=== PATIENT | male | born 1960 | race Caucasian/White ===

== ENCOUNTER 2022-01-05 15:53 | Emergency (ER) | payer OTHER, SELFPAY ==
--- NOTE | ~2022-01-05 | XR_ITS ---
EXAMINATION: XR ANKLE, RIGHT CLINICAL INFORMATION: Hyperextension injury. COMPARISON: None TECHNIQUE: AP, lateral, and mortise views of the right ankle. FINDINGS: A definite acute fracture is not seen. The ankle mortise appears stable. There is marked soft tissue swelling both medially and laterally. XR/XR ankle RT 2V IMPRESSION: Marked soft tissue swelling without fracture
--- NOTE | ~2022-01-05 | XR_ITS ---
EXAMINATION: LEFT KNEE AND RIGHT TIB-FIB CLINICAL INFORMATION: Leg redness with question of osteomyelitis and knee pain COMPARISON: Right ankle radiographs TECHNIQUE: 2 views left knee, 2 views right tib-fib FINDINGS: Mild bicompartmental degenerative changes present in the left knee with narrowing in the medial compartment as well as the patellofemoral compartment. No joint effusion is seen. No chondrocalcinosis. No fractures. The visualized right tibia and fibula appear unremarkable. The remainder of the tibia and fibula were imaged with right ankle radiographs earlier today XR/XR tibia fibula RT 2V IMPRESSION: Bicompartmental degenerative changes left knee. Negative right tib-fib radiographs.
--- NOTE | ~2022-01-05 | XR_ITS ---
EXAMINATION: LEFT KNEE AND RIGHT TIB-FIB CLINICAL INFORMATION: Leg redness with question of osteomyelitis and knee pain COMPARISON: Right ankle radiographs TECHNIQUE: 2 views left knee, 2 views right tib-fib FINDINGS: Mild bicompartmental degenerative changes present in the left knee with narrowing in the medial compartment as well as the patellofemoral compartment. No joint effusion is seen. No chondrocalcinosis. No fractures. The visualized right tibia and fibula appear unremarkable. The remainder of the tibia and fibula were imaged with right ankle radiographs earlier today XR/XR knee LT 2V IMPRESSION: Bicompartmental degenerative changes left knee. Negative right tib-fib radiographs.
--- NOTE | ~2022-01-05 | US_ITS ---
EXAMINATION: US VENOUS ULTRASOUND WITH DOPPLER LOWER EXTREMITY, BILATERAL CLINICAL INFORMATION: Leg swelling. Question DVT COMPARISON: 01/14/2017 TECHNIQUE: Ultrasound of the deep veins is performed from the hip to the calf with compression sonography and color and pulse Doppler assessment. Spectral analysis with color-flow imaging is performed. FINDINGS: RIGHT: There is normal venous compression and respiratory variation and augmented flow. The visualized common femoral vein, superficial femoral vein, profunda femoral vein, popliteal vein, and the trifurcation region shows no evidence of deep venous thrombosis. There is no significant popliteal fossa cyst. Right peroneal vein is not well seen. LEFT: There is normal venous compression and respiratory variation and augmented flow. The visualized common femoral vein, superficial femoral vein, profunda femoral vein, popliteal vein, and the trifurcation region shows no evidence of deep venous thrombosis. There is no significant popliteal fossa cyst. If the patient's symptoms persist, followup ultrasound in 5 days 7 days might be of value to exclude proximal propagation from a non-visualized calf vein. US/US venous duplex LE BI IMPRESSION: No DVT demonstrated in the bilateral lower extremity.
[2022-01-05 15:58] VITALS: BP 186/90; PULSE 76; RESP 18; TEMP 37.1; O2SAT 98; BMI 44.3
--- NOTE | 2022-01-05 18:46 | ED.GENADULT ---
HPI - General Adult General Chief complaint: Extremity Problem Stated complaint: fall rt ankle and bilat knee pain Time Seen by Provider: 01/05/22 17:25 Source: patient Mode of arrival: ambulatory Limitations: no limitations History of Present Illness HPI narrative: 61 yold male presents to the ED for HTN, Varicose, Veins, PVD, VEnsou statsis, and CHF presents to the ED for right ankle pain after falling 3 weeks ago. patient denies hitting head or loss of consciousness. Patient denies any chest pain, shortness of breath, fever, chills, headache, rectal bleeding, abdominal pain, vomiting blood, Blood in urine , or janette other concerning symptoms. Related Data Allergies Allergy/AdvReac Type Severity Reaction Status Date / Time amlodipine [AMLODIPINE] Allergy Intermediate MUSCLE Unverified 07/25/20 17:46 WEAKNESS, muscle aches, muscle aches lisinopril [LISINOPRIL] Allergy Mild COUGH Unverified 07/25/20 17:46 hydrochlorothiazide Allergy Unknown Verified 01/18/17 00:00 Review of Systems Review of Systems: Right ankle pain, Yes all other systems are reviewed and are negative [facility] Social History Social History Advance Directives: No Advance Directives Information Provided: Yes Physical Exam ED Vital Signs: Vital Signs - 24 hr 01/05/22 15:58 Temperature 98.7 F Pulse Rate 76 Respiratory Rate 18 Blood Pressure 186/90 H Pulse Oximetry 98 BMI result Body Mass Index 44.3 Const General: cooperative, healthy appearing, comfortable, no acute distress, well developed, alert, awake and Physically active Orientation/consciousness: oriented to person and oriented to place [facility] Head: Yes normal to inspection, Yes No palpable skull fracture present, Yes normocephalic, Yes atraumatic and No abrasion Eyes General: appearance normal, both eyes and all related structures Neck Neck: Yes normal visual inspection, Yes full ROM, Yes no lymphadenopathy, Yes no meningeal signs, Yes trachea midline, Yes supple, No anterior neck swelling and No tender Chest Chest palpation & inspection: normal inspection of the chest and normal palpation of entire chest wall Resp Effort & Inspection: normal respiratory effort and able to speak in complete sentences Auscultation: clear to auscultation bilaterally Cardio Jugular venous distension: no JVD Heart sounds: S1 normal heart sound present and S2 normal heart sound present GI Inspection: Yes normal to inspection and No abdominal wall ecchymosis Palpation (GI): Soft to palpation, not firm, nontender, no guarding and not rigid General: No CVA tenderness and Yes no CVA tenderness Back/Spine/Pelvis Back: no CVA tenderness, No CVA tenderness and No back tenderness Skin General skin exam: no rashes or lesions noted and elasticity normal Neuro General: oriented to person, oriented to place and no meningeal signs Extrem General: Yes normal to inspection and Yes full ROM Upper/lower leg/hip images: 1. Positive for erythema, warmth tenderness on palpation. Positive for leg swelling. Negative for calf tenderness on palpation. Motor/neuro/vascular intact of lower extremities intact. 2. Also swollen with chronic venous stasis skin changes. Negative for any erythema, tenderness, warmth, or deformity. Motor/neuro/vascular exam of lower extremity intact. normal Psych Appearance: grossly normal, well kempt and not disheveled Course Course Course Narrative: After patient removed parents better evaluation was done and realize possibility of right leg cellulitis. Patient states she was treated for cellulitis 4 weeks ago. He did not have primary care provider. Patient thinks redness got better but due to first-time myself seeing leg and is warm, erythematous, and blanching will do medical workup such as labs leg x-ray, ultrasound. Rapid medical screening x-ray of ankle was done and came back normal. Bilateral lower extremities chronic as per patient due to his venous stasis and varicose veins, but right leg redness and warmth appeared within the past 4 weeks.. Reevaluation(s) Reevaluation #1: Case signed out to [facility] Time: 19:05 Discharge Plan Discharge Clinical Impression: Cellulitis Patient Disposition: Still a Patient Instructions: Cellulitis (DC)
[2022-01-05 20:14] LABS: MANUAL DIFF FLAG NO
[2022-01-05 20:29] LABS: Basophils Absolute Auto 0.1 X10*3/uL (0.0-0.2); Basophils Percent Auto 0.6 % (0-2); Eosinophils Absolute Auto 0.2 X10*3/uL (0.0-0.4); Eosinophils Percent Auto 2.7 % (0-4); Hematocrit 42.5 % (42.0-52.0); Hemoglobin 14.1 g/dl (14.0-18.0); Imm Gran Abs Auto 0.03 X10*3/uL (0.00-0.03); Imm Gran Pct Auto 0.4 % (0.0-0.4); Lymphocytes Absolute Auto 2.2 X10*3/uL (1.2-4.9); Lymphocytes Percent Auto 27.1 % (20-40); Mean Corpuscular HGB Conc 33.2 g/dl (31.0-36.0); Mean Corpuscular Hemoglobin 30.2 pg (27.0-33.0); Mean Platelet Volume 10.9 fL (9.4-12.4); Monocytes Absolute Auto 0.7 X10*3/uL (0.1-1.2); Monocytes Percent Auto 8.3 % (2-11); Neutrophils Percent Auto 60.9 % (45-73); Platelet Count 260 X10*3/uL (160-400); Red Blood Count 4.67 X10*6/uL (4.60-5.80); Red Cell Distribution Width 12.5 % (11.0-16.0); White Blood Count 8.3 X10*3/uL (4.8-10.8)
[2022-01-05 20:34] LABS: C Reactive Protein 0.98 mg/dL (< or = 0.50); Prothrombin Time 11.2 SEC (9.9-13.0)
[2022-01-05 20:36] LABS: Partial Thromboplastin Time 44.9 SEC (24.1-38.0)
[2022-01-05 20:38] LABS: Alanine Aminotransferase 20 U/L (0-40); Albumin Level 4.4 g/dL (3.5-5.0); Alkaline Phosphatase 80 U/L (39-117); Anion Gap 13 (12-20); Aspartate Amino Transferase 17 U/L (5-37); Bilirubin Total 0.4 mg/dL (0.0-1.0); Blood Urea Nitrogen 17 mg/dL (9-16); Calcium 10.2 mg/dL (8.4-10.2); Carbon Dioxide 30 mmol/L (22-29); Chloride 100 mmol/L (96-108); Creatinine Clr Calc Pharmacy 105.9; Estimated Glomerular Filt Rate > 60; Glucose Random 126 mg/dL (60-115); Sodium 139 mmol/L (135-145); Total Protein 7.8 g/dL (6.5-8.0)
[2022-01-05 20:40] LABS: B Type Natriuretic Peptide 52 pg/mL (<100)
[2022-01-05 21:10] LABS: Erythrocyte Sedimentation Rate 16 MM/HR (0-15)
== END 2022-01-05 22:36 | disposition home or self-care (01) ==
PROVIDERS: Physician Assistant; Emergency Provider Emergency Medicine
DX: L03.115 Cellulitis of right lower limb (principal); M25.471 Effusion, right ankle; M25.571 Pain in right ankle and joints of right foot; M17.12 Unilateral primary osteoarthritis, left knee; I83.12 Varicose veins of left lower extremity with inflammation; I83.11 Varicose veins of right lower extremity with inflammation; I11.0 Hypertensive heart disease with heart failure; I50.9 Heart failure, unspecified
CPT/HCPCS: 36415; 73560; 73590; 73600; 80053; 83605; 83880; 85025; 85610; 85652; 85730; 86140; 87040; 93970; 99283; 99284

== ENCOUNTER 2023-12-28 17:10 | Inpatient (IN) | payer BC, SELFPAY ==
--- NOTE | ~2023-12-28 | US_ITS ---
EXAMINATION: Noninvasive assessment of the bilateral lower extremities with ARTERIAL DUPLEX and ANKLE BRACHIAL INDICES (ABIs). CLINICAL INFORMATION: Peripheral vascular disease with nonhealing ulcer TECHNIQUE: Duplex Doppler techniques with waveform analysis and measurement of velocities in the bilateral common femoral, profunda femoris, superficial femoral, popliteal and tibial arteries were performed. Additionally, ankle pulse volume recordings, ankle pressure measurements and ankle brachial indices were obtained of the lower extremity arterial system bilaterally. The study was performed only at rest. COMPARISON: None FINDINGS: DIRECT DUPLEX DOPPLER FINDINGS: RIGHT LEG: Common femoral artery: 124 cm/s, phasicity: Triphasic Profunda femoris artery: 42 cm/s, phasicity: Triphasic Superficial femoral artery (proximal): 120 cm/s, phasicity: Triphasic Superficial femoral artery (mid): 88 cm/s, phasicity: Triphasic Superficial femoral artery (distal): 70 cm/s, phasicity: Triphasic Popliteal artery: 84 cm/s, phasicity: Triphasic Posterior tibial artery: 123 cm/s, phasicity: Triphasic Peroneal artery: Not visualized Anterior tibial artery: 93 cm/s, phasicity: Triphasic Dorsalis pedis artery: 121 cm/s, phasicity:Triphasic LEFT LEG: Common femoral artery: 209 cm/s, phasicity: Triphasic Profunda femoris artery: 60 cm/s, phasicity: Biphasic Superficial femoral artery (proximal): 133 cm/s, phasicity: Triphasic Superficial femoral artery (mid): 142 cm/s, phasicity: Triphasic Superficial femoral artery (distal): 114 cm/s, phasicity: Biphasic Popliteal artery: 123 cm/s, phasicity: Biphasic Posterior tibial artery: 95 cm/s, phasicity: Monophasic Peroneal artery: 100 cm/s, phasicity: Monophasic Anterior tibial artery: 141 cm/s, phasicity: Monophasic Dorsalis pedis artery: 38 cm/s, phasicity: Monophasic ANKLE-BRACHIAL INDEX: Right: Noncompressible? Left: Noncompressible ANKLE PRESSURES: Right: PT greater than 200, DP greater than 200 Left: PT?greater than 200, DP?greater than 200 ANKLE PVR WAVEFORMS: Right: Normal Left: Normal US/US arterial duplex LE BI IMPRESSION: Right leg: Nondiagnostic MAYA due to noncompressible vessels. Normal PVR waveform. Widely patent arterial flow throughout the right lower extremity without significant arterial stenosis or occlusion Left leg: Nondiagnostic MAYA due to noncompressible vessels. Normal PVR waveform. Patent arterial flow throughout the left lower extremity without significant arterial stenosis or occlusion. Dampened waveforms are seen in the below-knee runoff vessels which could be due to distal microvascular disease or in the setting of severe edema. MAYA Reference: - >1.4 = calcified vessels - 0.9 - 1.4 = normal - no significant arterial disease - 0.7 - 0.89 = mild peripheral arterial disease - 0.51 - 0.69 = moderate peripheral arterial disease - ? 0.50 = severe peripheral arterial disease - < .30 = critical arterial disease
--- NOTE | ~2023-12-28 | MR_ITS ---
EXAMINATION: MR LOWER LEG LEFT WITHOUT CONTRAST CLINICAL INFORMATION: Evaluate for osteomyelitis of left fibula. COMPARISON: Radiographs of lower extremity from 12/28/2023. TECHNIQUE: Noncontrast MR imaging of left lower extremity is performed. Examination includes axial and coronal T1-weighted, coronal and sagittal STIR and axial fat-suppressed T2-weighted sequences. cytotechnologist/histotechnologist provides a note that patient refused IV contrast. FINDINGS: The examined left tibia and fibula have normal bone marrow signal intensity and intact cortices. No osseous erosion, periostitis or fracture. There is diffuse edema of the subcutaneous tissues of the left leg and ankle. Soft tissue edema is seen to a lesser degree in the right lower extremity which was partially included in the [id number] on the coronal STIR images. No evidence of any focal organized fluid collection within the superficial or deep tissues of the left lower extremity. There is atrophy and partial fatty replacement of multiple muscles. The areas of most significant fatty replacement are in the peroneus longus muscle and medial gastrocnemius. The visualized distal Achilles tendon is intact. Also, the visualized tendons at the level of the ankle are intact and without evidence of tenosynovitis, although evaluation is limited on this examination focused predominantly on the leg and not the ankle. There are dilated varicose veins of the extremity. MR/MR lower leg LT wo con IMPRESSION: * The diffuse edema of subcutaneous tissues of the left lower extremity is nonspecific. This could be secondary to venous insufficiency, lymphedema and/or cellulitis. * There are no focal organized fluid collections within superficial or deep tissues. * No evidence of tibia or fibula osteomyelitis.
--- NOTE | ~2023-12-28 | XR_ITS ---
EXAMINATION: XR tibia fibula RT 2V, XR tibia fibula LT 2V CLINICAL INFORMATION: Reason for Exam swelling. osteomyelitis? COMPARISON: Left knee radiograph 01/05/2022, right tibia/fibular radiographs 01/05/2022. TECHNIQUE: AP and lateral radiographs of the left tibia/fibulas; AP and lateral radiographs of the right tibia/fibula FINDINGS: Left tibia/fibula: Diffuse reticulation of the subcutaneous fat is present suspicious for soft tissue inflammatory changes. No soft tissue emphysematous changes identified. Lateral view demonstrates indistinctness of the cortical margins of the proximal fibula and indistinctness of the endosteal margin within the proximal fibular diaphysis. Pretibial soft tissue prominence is visualized. Mild enthesopathic changes are noted at the Achilles insertion upon the calcaneus. Partial visualization is made of a well-corticated 1.5 cm ossific body along the lateral aspect of the hindfoot which may represent the sequela of remote injury. Right tibia/fibula: Diffuse soft tissue prominence and reticulation of the subcutaneous fat is identified. Cortical indistinctness is noted in association with the proximal fibular diaphysis. No periosteal reaction. The endosteal margins are indistinct within the proximal fibular diaphysis. No soft tissue emphysematous changes. Partial visualization is made of well-corticated ossific bodies along the lateral margin of the hindfoot inferior to the fibula which may represent the sequela of remote injury. Talar dome appears grossly intact. XR/XR tibia fibula RT 2V IMPRESSION: Left and right tibia/fibula: *Bilateral marked soft tissue inflammatory changes adjacent to the tibia/fibula which may represent cellulitis and/or edema. No soft tissue emphysema. *Cortical indistinctness of the proximal fibular diaphyses bilaterally. Findings are grossly unchanged within the proximal left fibula compared with the incidentally visualized portions of the left fibula on the comparison knee radiographs of 01/05/2022. Current findings may represent the sequela of prior osteomyelitis or could represent chronic and/or recrudescent osteomyelitis. As clinically indicated, findings may be further evaluated with MRI. Findings may also represent fibular osteopenia secondary to chronic soft tissue inflammatory changes and adjacent soft tissue hyperemia. *Partial visualization of chronic appearing well-corticated ossific bodies along the lateral aspect of the left and right ankles which may represent the sequela of remote injury.
--- NOTE | ~2023-12-28 | US_ITS ---
EXAMINATION: US VENOUS ULTRASOUND WITH DOPPLER LOWER EXTREMITY, BILATERAL CLINICAL INFORMATION: Swelling, evaluate for DVT. COMPARISON: Lower extremity ultrasound 01/05/2022. TECHNIQUE: Ultrasound of the deep veins is performed from the hip to the calf with compression sonography and color and pulse Doppler assessment. Spectral analysis with color-flow imaging is performed. FINDINGS: RIGHT: There is normal venous compression and respiratory variation and augmented flow. The visualized common femoral vein, superficial femoral vein, profunda femoral vein, popliteal vein, and the trifurcation region shows no evidence of deep venous thrombosis. There is no significant popliteal fossa cyst. LEFT: There is normal venous compression and respiratory variation and augmented flow. The visualized common femoral vein, superficial femoral vein, profunda femoral vein, popliteal vein, and the trifurcation region shows no evidence of deep venous thrombosis. The peroneal veins were not seen. There is no significant popliteal fossa cyst. ADDITIONAL FINDINGS: Left greater than right enlarged inguinal lymph nodes measuring up to 2 cm in short axis with well-defined margins, oval-shaped and preserved fatty dick, most likely reactive in nature. US/US venous duplex LE BI IMPRESSION: 1. No DVT demonstrated in the bilateral lower extremities with the caveat of nonvisualization of the left peroneal veins. If the patient's symptoms persist, followup ultrasound in 5 days 7 days might be of value to exclude proximal propagation from a non-visualized calf vein. 2. Enlarged left greater than right inguinal lymph nodes, likely reactive in nature.
[2023-12-28 17:44] VITALS: BP 162/79; PULSE 83; RESP 18; TEMP 37.1; O2SAT 95; BMI 49.1
--- NOTE | 2023-12-28 17:54 | ED_ITS ---
HPI - Extremity Problem General Chief complaint: Extremity Problem Stated complaint: Both legs swollen/left worse Time Seen by Provider: 12/28/23 23:44 Source: patient Mode of arrival: ambulatory Limitations: no limitations History of Present Illness HPI Narrative: Patient comes to the emergency room complaining of redness in the left leg. Patient states that he does have history of chronic venous stasis. However, over last 2 weeks, patient noticed that his left lower extremity has been erythematous and now it is streaking upwards and the erythromycin reaching the groin area. Patient states it is tender. Patient denies fever chills. Related Data Home Medications Medication Instructions Recorded Confirmed candesartan 16 mg tablet 16 mg PO DAILY 12/29/23 12/29/23 furosemide 40 mg tablet 40 mg PO DAILY 12/29/23 12/29/23 Allergies Allergy/AdvReac Type Severity Reaction Status Date / Time amlodipine [AMLODIPINE] Allergy Intermediate MUSCLE Verified 12/29/23 00:09 WEAKNESS, muscle aches, muscle aches lisinopril [LISINOPRIL] Allergy Mild COUGH Verified 12/29/23 00:09 Review of Systems 2 Review of Systems: Constitutional : No Weight loss, No Fever, No Chills, No Night Sweats, No Fatigue, No Malaise ENT/Mouth : No Hearing loss, No Ear Pain, No Nasal Congestion, No Sinus Pain, No Hoarseness, No sore throat, No Rhinorrhea, No Swallowing Difficulty Eyes: No Eye Pain, No Swelling, No Redness, No Foreign Body, No Discharge, No Vision Changes Cardiovascular : No Chest Pain, No SOB, No Dyspnea on Exertion, No Orthopnea, No Edema, No Palpitations Respiratory : No Cough, No Sputum, No Wheezing, No Smoke Exposure, No Dyspnea Gastrointestinal : No Nausea, No Vomiting, No Diarrhea, No Constipation, No abdominal Pain, No Hematochezia, No Melena Genitourinary : no irregular bleeding, No Dysuria, No Urinary Frequency, No Hematuria, No Urinary Incontinence, No Urgency, No Flank Pain, No Urinary Flow Changes, No Hesitancy Musculoskeletal : No joint pain, No Myalgias, No Joint Swelling Skin : Complaining of left lower extremity erythema spreading upwards Neuro : No Weakness, No Numbness, No Paresthesias, No Loss of Consciousness, No Dizziness, No Headache Psych : No Anxiety/Panic, No Depression, No SI/HI/AH/VH, No Social Issues, Heme/Lymph: No Bruising, No Bleeding,No Lymphadenopathy Endocrine : No Polyuria, No Polydipsia, No Temperature Intolerance [facility] Past Medical History Medical History (Updated 12/29/23 @ 03:53 by Harman Paulino MD) Essential hypertension Obesity Chronic venous stasis Hypertension Social History Social History Smoked in Last 30 Days: No Use of substances other than those prescribed or required for medical reasons: No Advance Directives: No Advance Directives Information Provided: No Physical Exam 2 Vital Signs: Vital Signs: Last Vital Signs Temp 97.8 F 12/28/23 22:25 Pulse 68 12/29/23 00:18 Resp 20 12/29/23 00:18 BP 175/89 H 12/29/23 00:18 Pulse Ox 98 12/29/23 00:18 O2 Del Method Room Air 12/29/23 00:18 BMI result Body Mass Index 49.1 Const: Other: Appearance: Alert. Oriented X3. No acute distress. Eyes: Pupils equal, round and reactive to light. ENT: Pharynx normal. Neck: Normal inspection. Neck supple. No lymph nodes noted. No crepitus CVS: Normal heart rate and rhythm. Pulses normal. Normal S1 and S2 Respiratory: No respiratory distress. Breath sounds normal. No Wheezing. No rales Abdomen: Soft and nontender. No rigidity. No distention. Patient has a large umbilical hernia, about the size of a small orange, nonpainful, reducible Skin: Skin warm and dry. Normal skin color. Normal skin turgor. Patient has erythema in the left lower extremity, warm to touch, reproducible pain. Streaks of erythema going up to the groin area. Extremities: No lower extremity edema. No Lacerations. The skin above Neuro: Oriented X 3. No motor deficit. No sensory deficit. Moving all extremities. No slurred speech. CN 2 through 12 grossly intact Psych: calm, cooperative, normal affect Course Course Course Narrative: RME: 63-year-old male history lymphedema presents to increased bilateral lower extremity swelling but more on the left with left redness and weeping and warmth. She denies any fever, chills, chest pain or shortness of breath. Parents only lift up midway of leg but does shows warmth and erythema. Patient to be evaluated in main ED. ultrasound x-ray labs ordered. Medications Administered Generic Name Dose Route Start Last Admin Trade Name Freq PRN Reason Stop Dose Admin Piperacillin Sod/Tazobactam 50 mls @ 100 mls/hr 12/29/23 06:00 12/29/23 08:59 Sod 3.375 gm/ Sodium Chloride IV Infused Q6H KATY Infusion Sodium Chloride 3 ml 12/29/23 08:00 12/29/23 07:15 0.9 % Sodium Chloride Flush 3 Ml Syringe IVFLUSH Not Given QSHIFT KATY Discontinued Medications Generic Name Dose Route Start Last Admin Trade Name Freq PRN Reason Stop Dose Admin Sodium Chloride 1,000 mls @ 999 mls/hr 12/29/23 00:00 12/29/23 03:44 Ns IVCONT 12/29/23 01:00 Infused .Q1H1M ONE Infusion Vancomycin HCl 2,000 mg in 500 mls @ 250 mls/hr 12/29/23 00:00 12/29/23 03:44 Vancomycin/Ns IV 12/29/23 01:59 Infused ONCE ONE Infusion Piperacillin Sod/Tazobactam 50 mls @ 100 mls/hr 12/29/23 00:00 12/29/23 00:51 Sod 3.375 gm/ Sodium Chloride IV 12/29/23 00:29 Infused ONCE ONE Infusion Medical Decision Making Medical Decision Making [facility] Narrative: My interpretation of labs: Normal white blood cell count. Chemistry does not show any significant acute abnormalities. -I discussed the physical exam with the patient, the erythema is extensive, likely cellulitis. -the x-ray is inconclusive, shows possible chronic osteomyelitis versus new osteomyelitis versus inflammation secondary to cellulitis. Patient states that to his knowledge, he has never been diagnosed with osteomyelitis -patient is being given IV antibiotics, vancomycin and Zosyn and IV fluids. -I discussed the patient with Dr. Modi from the Medicine team, patient being admitted -patient states that since he will be staying in the hospital, requesting if possible to be seen by general surgery for a chronic umbilical hernia. At this time, patient has no pain, it is reducible Differential Diagnosis Differential Diagnoses: The differential diagnosis associated with the presentation includes (Cellulitis, osteomyelitis, chronic venous stasis) Admission/Observation Consideration of admission/observation: Escalation of care including admission/observation considered Consult Healthcare Provider Management of the patient was discussed with: Hospitalist Lab Data [facility] Lab Attestation statement: I reviewed the patient's lab results. 12/29/23 04:43 12/29/23 04:43 Labs: Lab Results 12/28/23 Range/Units 19:33 WBC 8.1 (4.8-10.8) X10*3/uL RBC 4.38 L (4.60-5.80) X10*6/uL Hgb 12.8 L (14.0-18.0) g/dl Hct 38.8 L (42.0-52.0) % MCV 88.6 (80.0-98.0) fL MCH 29.2 (27.0-33.0) pg MCHC 33.0 (31.0-36.0) g/dl RDW 13.1 (11.0-16.0) % Plt Count 238 (160-400) X10*3/uL MPV 10.1 (9.4-12.4) fL Immature Gran % (Auto) 0.5 H (0.0-0.4) % Neut % (Auto) 65.3 (45-73) % Lymph % (Auto) 20.1 (20-40) % Hudson % (Auto) 9.5 (2-11) % Eos % (Auto) 4.1 H (0-4) % Baso % (Auto) 0.5 (0-2) % Lymph # (Auto) 1.6 (1.2-4.9) X10*3/uL Hudson # (Auto) 0.8 (0.1-1.2) X10*3/uL Eos # (Auto) 0.3 (0.0-0.4) X10*3/uL Baso # (Auto) 0.0 (0.0-0.2) X10*3/uL Abs Immat Gran (auto) 0.04 H (0.00-0.03) X10*3/uL Absolute Neuts (auto) 5.3 (2.0-8.3) x10*3/uL Absolute Nucleated RBC 0.000 (0.0-0.012) X10*3/uL Nucleated RBC % (auto) 0.0 (0.0-0.2) /100WBC ESR 40 H (0-15) MM/HR Sodium 142 (135-145) mmol/L Potassium 4.3 (3.3-5.1) mmol/L Chloride 105 (96-108) mmol/L Carbon Dioxide 29 (22-29) mmol/L Anion Gap 12 (12-20) BUN 23 H (9-16) mg/dL Creatinine 1.07 (0.5-1.4) mg/dL Estim Creat Clear Calc 101.3 Estimated GFR > 60 Random Glucose 148 H (60-115) mg/dL Calcium 9.4 D (8.4-10.2) mg/dL Total Bilirubin 0.2 (0.0-1.0) mg/dL AST 15 (5-37) U/L ALT 13 (0-40) U/L Alkaline Phosphatase 85 (39-117) U/L C-Reactive Protein 4.95 H (< or = 0.50) mg/dL Total Protein 7.8 (6.5-8.0) g/dL Albumin 3.7 (3.5-5.0) g/dL Radiology Impression Discussion of test interpretation with radiology: I have reviewed the radiologist's reading. Radiologist Impression: FINDINGS: RIGHT: There is normal venous compression and respiratory variation and augmented flow. The visualized common femoral vein, superficial femoral vein, profunda femoral vein, popliteal vein, and the trifurcation region shows no evidence of deep venous thrombosis. There is no significant popliteal fossa cyst. LEFT: There is normal venous compression and respiratory variation and augmented flow. The visualized common femoral vein, superficial femoral vein, profunda femoral vein, popliteal vein, and the trifurcation region shows no evidence of deep venous thrombosis. The peroneal veins were not seen. There is no significant popliteal fossa cyst. ADDITIONAL FINDINGS: Left greater than right enlarged inguinal lymph nodes measuring up to 2 cm in short axis with well-defined margins, oval-shaped and preserved fatty dick, most likely reactive in nature. US/US venous duplex LE BI IMPRESSION: 1. No DVT demonstrated in the bilateral lower extremities with the caveat of nonvisualization of the left peroneal veins. If the patient's symptoms persist, followup ultrasound in 5 days 7 days might be of value to exclude proximal propagation from a non-visualized calf vein. 2. Enlarged left greater than right inguinal lymph nodes, likely reactive in nature. Left and right tibia/fibula: *Bilateral marked soft tissue inflammatory changes adjacent to the tibia/fibula which may represent cellulitis and/or edema. No soft tissue emphysema. *Cortical indistinctness of the proximal fibular diaphyses bilaterally. Findings are grossly unchanged within the proximal left fibula compared with the incidentally visualized portions of the left fibula on the comparison knee radiographs of 01/05/2022. Current findings may represent the sequela of prior osteomyelitis or could represent chronic and/or recrudescent osteomyelitis. As clinically indicated, findings may be further evaluated with MRI. Findings may also represent fibular osteopenia secondary to chronic soft tissue inflammatory changes and adjacent soft tissue hyperemia. *Partial visualization of chronic appearing well-corticated ossific bodies along the lateral aspect of the left and right ankles which may represent the sequela of remote injury. Critical Care Time Critical Care Time Critical Care Time: Yes Total Critical Care Time: 60 Attestation: I have personally provided critical care time. Time includes review of lab data, radiology results, discussion with consultants, and monitoring for potential decompensation. Intervention performed as documented. Discharge Plan Discharge Clinical Impression: Cellulitis of left leg Patient Disposition: Admitted As Inpatient
[2023-12-28 19:38] LABS: MANUAL DIFF FLAG NO
[2023-12-28 19:41] LABS: Basophils Percent Auto 0.5 % (0-2); Eosinophils Absolute Auto 0.3 X10*3/uL (0.0-0.4); Eosinophils Percent Auto 4.1 % (0-4); Hematocrit 38.8 % (42.0-52.0); Hemoglobin 12.8 g/dl (14.0-18.0); Imm Gran Abs Auto 0.04 X10*3/uL (0.00-0.03); Imm Gran Pct Auto 0.5 % (0.0-0.4); Lymphocytes Absolute Auto 1.6 X10*3/uL (1.2-4.9); Lymphocytes Percent Auto 20.1 % (20-40); Mean Corpuscular Hemoglobin 29.2 pg (27.0-33.0); Mean Corpuscular Volume 88.6 fL (80.0-98.0); Mean Platelet Volume 10.1 fL (9.4-12.4); Monocytes Absolute Auto 0.8 X10*3/uL (0.1-1.2); Monocytes Percent Auto 9.5 % (2-11); Neutrophils Absolute Auto 5.3 x10*3/uL (2.0-8.3); Neutrophils Percent Auto 65.3 % (45-73); Platelet Count 238 X10*3/uL (160-400); Red Blood Count 4.38 X10*6/uL (4.60-5.80); Red Cell Distribution Width 13.1 % (11.0-16.0); White Blood Count 8.1 X10*3/uL (4.8-10.8)
[2023-12-28 20:00] LABS: Alanine Aminotransferase 13 U/L (0-40); Albumin Level 3.7 g/dL (3.5-5.0); Alkaline Phosphatase 85 U/L (39-117); Anion Gap 12 (12-20); Aspartate Amino Transferase 15 U/L (5-37); Bilirubin Total 0.2 mg/dL (0.0-1.0); Blood Urea Nitrogen 23 mg/dL (9-16); C Reactive Protein 4.95 mg/dL (< or = 0.50); Calcium 9.4 mg/dL (8.4-10.2); Carbon Dioxide 29 mmol/L (22-29); Chloride 105 mmol/L (96-108); Creatinine Clr Calc Pharmacy 101.3; Estimated Glomerular Filt Rate > 60; Glucose Random 148 mg/dL (60-115); Potassium 4.3 mmol/L (3.3-5.1); Sodium 142 mmol/L (135-145); Total Protein 7.8 g/dL (6.5-8.0)
[2023-12-28 20:24] LABS: Erythrocyte Sedimentation Rate 40 MM/HR (0-15)
[2023-12-28 22:25] VITALS: BP 206/99; PULSE 72; RESP 18; TEMP 36.6; O2SAT 94
[2023-12-29 00:18] VITALS: BP 175/89; PULSE 68; RESP 20; O2SAT 98
[2023-12-29] MEDS: Piperacillin Sodium/Tazobactam 3.375 GM in 0.9 % Sodium Chloride 50 ML IV ×4 (00:19→18:02)
[2023-12-29] MEDS: vancomycin/NS 2,000 MG/500 ML PLAST..BAG 250 MG IV (00:54)
[2023-12-29] MEDS: 0.9 % Sodium Chloride 1,000 ML 999 ML IVCONT (00:54)
--- NOTE | 2023-12-29 03:29 | P.HPHOSP_ITS ---
History of Present Illness Date of Service: 12/29/23 Attending physician on admission: Harman Paulino Chief Complaint: Left leg swelling Titus Hayward is a 63 years old man with past medical history significant for essential hypertension presents to the emergency department complaining of left leg swelling associated with redness that has been getting worse over the last 2 weeks. The redness and swelling is involving his left thight. He did not report any fevers chills. He did not report any acute cardiopulmonary, gastrointestinal or genitourinary symptoms. He does have history of chronic venous stasis and mentioned that about 10 years ago he was evaluated by our vascular surgeon. In the ED, he was found to have significant hypertension, however it has been decreasing. His blood pressure is 175/89. There is no tachycardia or fever. Blood workup showed no leukocytosis. ESR and CRP are elevated. There are no significant electrolyte imbalances. His glucose is 148. Tib-fib x-ray showed soft tissue inflammatory changes and left fibula finding representing sequela of prior osteomyelitis or chronic and/or recrudescent osteomyelitis. Left lower extremity venous ultrasound showed no DVT. ED tx: NS 1 L bolus, vancomycin 2 g IV, Zosyn 3.375 g IV Review of Systems 2 Review of Systems: All 12 systems were reviewed and normal except as noted in HPI. [facility] Medical History (Updated 12/29/23 @ 03:53 by Harman Paulino MD) Essential hypertension Obesity Chronic venous stasis Hypertension Social History Smoked in Last 30 Days: No Use of substances other than those prescribed or required for medical reasons: No Advance Directives: No Advance Directives Information Provided: No Meds Allergies Allergy/AdvReac Type Severity Reaction Status Date / Time amlodipine [AMLODIPINE] Allergy Intermediate MUSCLE Verified 12/29/23 00:09 WEAKNESS, muscle aches, muscle aches lisinopril [LISINOPRIL] Allergy Mild COUGH Verified 12/29/23 00:09 Active Medications: Current Medications Acetaminophen (Acetaminophen 325 Mg Tablet) 975 mg PO Q6H PRN PRN Reason: Pain, Mild (Pain Scale 1-3) Heparin Sodium (Porcine) (Heparin Sodium,Porcine 5,000 Unit/Ml Vial) 5,000 unit SUBCUT Q8H [facility] Piperacillin Sod/Tazobactam (Sod 3.375 gm/ Sodium Chloride) 50 mls @ 100 mls/hr IV Q6H [facility] Pharmacy Consult (Consult Rx Vancomycin Dosing) 1 each MISCELLANE DAILY PRN PRN Reason: Consult order Sodium Chloride (0.9 % Sodium Chloride Flush 3 Ml Syringe) 3 ml IVFLUSH QSHIFT [facility] Valsartan (Valsartan 80 Mg Tablet) 80 mg PO DAILY [facility] Home Medications Medication Instructions Recorded Confirmed Last Taken Type candesartan 16 mg tablet 16 mg PO DAILY 12/29/23 12/29/23 Unknown History furosemide 40 mg tablet 40 mg PO DAILY 12/29/23 12/29/23 Unknown History Physical Exam 2 Vital Signs and Narrative: Vital Signs: Last Vital Signs Temp 97.8 F 12/28/23 22:25 Pulse 68 12/29/23 00:18 Resp 20 12/29/23 00:18 BP 175/89 H 12/29/23 00:18 Pulse Ox 98 12/29/23 00:18 O2 Del Method Room Air 12/29/23 00:18 BMI result Body Mass Index 49.1 Constitutional - Awake and Alert, No apparent distress. Obese. Afebrile. HEENT - Normocephalic. Heart - RRR. No murmurs. Lungs - Normal lung expansion, Normal respiratory effort, No respiratory distress, CTA bilaterally Extremities: Distal pulses 2+ Musculoskeletal - Normal inspection, normal ROM Skin - Warm/Dry Neurological - Alert & oriented x3. No focal weakness grossly noted. Normal speech. Normal behavior. Psychological - Appropriate affect Results Labs 12/28/23 19:33 12/28/23 19:33 Labs: Laboratory Results - last 24 hr 12/28/23 19:33 MCV 88.6 MCH 29.2 MCHC 33.0 RDW 13.1 Plt Count 238 MPV 10.1 Immature Gran % (Auto) 0.5 H Neut % (Auto) 65.3 Lymph % (Auto) 20.1 Vernon % (Auto) 9.5 Eos % (Auto) 4.1 H Baso % (Auto) 0.5 Lymph # (Auto) 1.6 Vernon # (Auto) 0.8 Eos # (Auto) 0.3 Baso # (Auto) 0.0 Abs Immat Gran (auto) 0.04 H Absolute Neuts (auto) 5.3 Absolute Nucleated RBC 0.000 Nucleated RBC % (auto) 0.0 ESR 40 H Anion Gap 12 Estim Creat Clear Calc 101.3 Estimated GFR > 60 Random Glucose 148 H Calcium 9.4 D Total Bilirubin 0.2 AST 15 ALT 13 Alkaline Phosphatase 85 C-Reactive Protein 4.95 H Total Protein 7.8 Albumin 3.7 Imaging Radiologist's Impressions: Impressions Tibia/Fibula X-Ray 12/28/23 18:07 IMPRESSION: Left and right tibia/fibula: *Bilateral marked soft tissue inflammatory changes adjacent to the tibia/fibula which may represent cellulitis and/or edema. No soft tissue emphysema. *Cortical indistinctness of the proximal fibular diaphyses bilaterally. Findings are grossly unchanged within the proximal left fibula compared with the incidentally visualized portions of the left fibula on the comparison knee radiographs of 01/05/2022. Current findings may represent the sequela of prior osteomyelitis or could represent chronic and/or recrudescent osteomyelitis. As clinically indicated, findings may be further evaluated with MRI. Findings may also represent fibular osteopenia secondary to chronic soft tissue inflammatory changes and adjacent soft tissue hyperemia. *Partial visualization of chronic appearing well-corticated ossific bodies along the lateral aspect of the left and right ankles which may represent the sequela of remote injury. Tibia/Fibula X-Ray 12/28/23 18:07 IMPRESSION: Left and right tibia/fibula: *Bilateral marked soft tissue inflammatory changes adjacent to the tibia/fibula which may represent cellulitis and/or edema. No soft tissue emphysema. *Cortical indistinctness of the proximal fibular diaphyses bilaterally. Findings are grossly unchanged within the proximal left fibula compared with the incidentally visualized portions of the left fibula on the comparison knee radiographs of 01/05/2022. Current findings may represent the sequela of prior osteomyelitis or could represent chronic and/or recrudescent osteomyelitis. As clinically indicated, findings may be further evaluated with MRI. Findings may also represent fibular osteopenia secondary to chronic soft tissue inflammatory changes and adjacent soft tissue hyperemia. *Partial visualization of chronic appearing well-corticated ossific bodies along the lateral aspect of the left and right ankles which may represent the sequela of remote injury. Venous Duplex 12/28/23 18:48 IMPRESSION: 1. No DVT demonstrated in the bilateral lower extremities with the caveat of nonvisualization of the left peroneal veins. If the patient's symptoms persist, followup ultrasound in 5 days 7 days might be of value to exclude proximal propagation from a non-visualized calf vein. 2. Enlarged left greater than right inguinal lymph nodes, likely reactive in nature. Assessment and Plan (1) Cellulitis of left leg: Status: Acute (2) Essential hypertension: Status: Acute (3) Elevated glucose: Status: Acute Plan Titus Hayward is a 63 years old man admitted with: * Left lower extremity cellulitis (extensive). ? Osteomyelitis left femur. LE US showed no DVT. Admit to hospitalist service. Continue empiric IV antibiotic therapy with vancomycin and Zosyn. Check MRI of the leg to assess for osteomyelitis. Monitor CRP Vascular surgery consult -pt request. * Essential hypertension. Continue candesartan. Continue to monitor blood pressure. * Hyperglycemia, no fasting. Check hemoglobin A1c. * Obesity. BMI 49.1 kg/m2. Weight loss. DVT prophylaxis: Heparin subQ Code status: Full Patient will need hospitalization for at least 2 midnights for left lower extremity treatment with IV antibiotics and further evaluation with left leg MRI to assess for osteomyelitis. Quality Stroke Does the patient have a stroke diagnosis?: No VTE Prior VTE?: No VTE Risk Level:: Medical - moderate - high VTE Device Contraindication: Treatment Not Indicated VTE Drug Contraindication: N/A - Med Ordered
[2023-12-29 05:16] LABS: MANUAL DIFF FLAG NO
[2023-12-29 05:18] LABS: Basophils Absolute Auto 0.1 X10*3/uL (0.0-0.2); Basophils Percent Auto 0.8 % (0-2); Eosinophils Absolute Auto 0.4 X10*3/uL (0.0-0.4); Eosinophils Percent Auto 4.9 % (0-4); Hematocrit 38.9 % (42.0-52.0); Hemoglobin 12.7 g/dl (14.0-18.0); Imm Gran Abs Auto 0.02 X10*3/uL (0.00-0.03); Imm Gran Pct Auto 0.3 % (0.0-0.4); Lymphocytes Absolute Auto 1.6 X10*3/uL (1.2-4.9); Lymphocytes Percent Auto 22.9 % (20-40); Mean Corpuscular HGB Conc 32.6 g/dl (31.0-36.0); Mean Corpuscular Hemoglobin 29.1 pg (27.0-33.0); Mean Corpuscular Volume 89.2 fL (80.0-98.0); Mean Platelet Volume 10.4 fL (9.4-12.4); Monocytes Absolute Auto 0.6 X10*3/uL (0.1-1.2); Monocytes Percent Auto 8.2 % (2-11); Neutrophils Absolute Auto 4.5 x10*3/uL (2.0-8.3); Neutrophils Percent Auto 62.9 % (45-73); Platelet Count 234 X10*3/uL (160-400); Red Blood Count 4.36 X10*6/uL (4.60-5.80); Red Cell Distribution Width 13.1 % (11.0-16.0); White Blood Count 7.2 X10*3/uL (4.8-10.8)
[2023-12-29 05:34] LABS: Anion Gap 13 (12-20); Blood Urea Nitrogen 22 mg/dL (9-16); Carbon Dioxide 27 mmol/L (22-29); Chloride 106 mmol/L (96-108); Potassium 4.1 mmol/L (3.3-5.1); Sodium 142 mmol/L (135-145)
[2023-12-29 05:35] LABS: Alanine Aminotransferase 11 U/L (0-40); Albumin Level 3.6 g/dL (3.5-5.0); Alkaline Phosphatase 71 U/L (39-117); Aspartate Amino Transferase 14 U/L (5-37); Bilirubin Total 0.5 mg/dL (0.0-1.0); Creatinine Clr Calc Pharmacy 124.7; Estimated Glomerular Filt Rate > 60; Glucose Random 116 mg/dL (60-115); Total Protein 7.3 g/dL (6.5-8.0)
[2023-12-29 05:51] LABS: Estimated Average Glucose 126 mg/dL
--- NOTE | 2023-12-29 07:24 | PHA.MEDREC ---
Pharmacy Consult ? Medication Reconciliation Pharmacy has reviewed the medication reconciliation done by hospitalist.
--- NOTE | 2023-12-29 07:37 | PC.NURSE ---
MRI screening form complete and faxed.
--- NOTE | 2023-12-29 08:33 | PHA.PROG ---
Admission Date/Time: December 29, 2023 01:22 Indication: Other (skin) Weight in k.9 kg Adjusted body weight in K.78 Serum Creatinine - Last 168 Hours 12/28/23 12/29/23 19:33 04:43 Creatinine 1.07 0.87 Estimated CrCl and GFR - Last 168 Hours 12/28/23 12/29/23 19:33 04:43 Estim Creat Clear Calc 101.3 124.7 Estimated GFR > 60 > 60 Vancomycin Loading Dose: 2,000mg Current Vancomycin Dosing Regimen: 1,250mg Q12H Vancomycin Monitoring using AUC goal of 400 - 600 range with trough as surrogate marker: 492 Date and Time for next Vancomycin Level to be drawn: 12/30 at 11:00 Pharmacist Comments on Vancomycin Plan: Vancomycin dosing will take advantage of [employer] as a clinical decision support tool that uses Bayesian modeling to calculate individual patient's pharmacokinetic parameters and forecast the patient's drug concentration time course with the target goal AUC 24 range of 400 - 600 mg/L/hr.
--- NOTE | 2023-12-29 09:46 | PM.EVENT ---
Event Note Date of Service: 12/29/23 Event Note: Seen and evaluated this morning erythema better dry skin with scratching denis Pending vascular evaluation Continue Vancomycin and Zosyn Time Spent With Patient Time: Total time managing care of this patient today ____ minutes.
[2023-12-29] MEDS: Heparin Sodium,Porcine 5,000 UNIT/ML VIAL 5000 UNIT SUBCUT ×2 (10:13→18:02)
[2023-12-29] MEDS: Furosemide 40 MG TABLET PO (10:13)
[2023-12-29 10:24] VITALS: BP 184/93; PULSE 66; RESP 16; TEMP 36.5; O2SAT 95
--- NOTE | 2023-12-29 10:33 | PC.NURSE ---
assumed care of pt at 0700. pt a&o x4, pleasant, calm, and cooperative. pt has 22G IV to RAC, patent. medicated per mar. ambulatory steady to bathroom. pt refused valsartan, Dr. Mtz aware. pt sts he has an allergy to it and will bring in alternative med from home. pt BP noted to be elevated, Dr. Mtz aware. MRI screening form faxed. pt resting quietly on stretcher in no apparent distress. rr even/unlabored. call kaur within reach. plan of care ongoing. awaiting transport to inpatient room.
[2023-12-29 11:43] VITALS: BP 150/90; PULSE 69; RESP 18; TEMP 36.1; O2SAT 98
--- NOTE | 2023-12-29 12:10 | P.CONGS_ITS ---
History of Present Illness Consult details Consult date: 12/29/23 Reason for consult: wound care Narrative: Very pleasant 63-year-old gentleman with a past medical history hypertension and heart disease on chronic diuretics presented with significant swelling and ulceration of the left lower extremity. He will reports that it had progressively gotten worse. It was to the point where he was unable to bear any significant weight on the left lower extremity. He was then brought into the emergency room for evaluation. He now presents to us for vascular evaluation. Review of Systems 2 Constitutional: Constitutional: Reports as per HPI ENT: Reports system reviewed and no additional complaints, except as documented Cardiovascular: Cardiovascular: Denies chest pain, Denies chest pain at rest and Denies chest pain with activity Respiratory: Respiratory: Denies chest congestion and Denies cough Gastrointestinal: Gastrointestinal: Reports no additional gastrointestinal complaints Musculoskeletal: Musculoskeletal: Denies abnormal gait Integumentary/Breasts: Skin/Breast: Reports pruritus and Denies wounds Neurologic: Reports system reviewed and no additional complaints, except as documented and Denies abnormal gait Psychiatric: Psychiatric: Denies no additional psychiatric complaints [facility] Past Medical History Medical History (Updated 12/29/23 @ 12:14 by Logan Roque MD) Essential hypertension Obesity Chronic venous stasis Hypertension Meds Allergies Allergy/AdvReac Type Severity Reaction Status Date / Time amlodipine [AMLODIPINE] Allergy Intermediate MUSCLE Verified 12/29/23 00:09 WEAKNESS, muscle aches, muscle aches lisinopril [LISINOPRIL] Allergy Mild COUGH Verified 12/29/23 00:09 valsartan Allergy Muscle Verified 12/29/23 10:21 cramps Active Medications: Current Medications Acetaminophen (Acetaminophen 325 Mg Tablet) 975 mg PO Q6H PRN PRN Reason: Pain, Mild (Pain Scale 1-3) Furosemide (Furosemide 40 Mg Tablet) 40 mg PO DAILY KATY; Protocol Last Admin: 12/29/23 10:13 Dose: 40 mg Heparin Sodium (Porcine) (Heparin Sodium,Porcine 5,000 Unit/Ml Vial) 5,000 unit SUBCUT Q8H KATY Last Admin: 12/29/23 10:13 Dose: 5,000 unit Piperacillin Sod/Tazobactam (Sod 3.375 gm/ Sodium Chloride) 50 mls @ 100 mls/hr IV Q6H [facility] Last Infusion: 12/29/23 08:59 Dose: Infused Vancomycin HCl 1,250 mg/ (Sodium Chloride) 250 mls @ 166.667 mls/hr IV Q12H [facility] Lactic Acid (Ammonium Lactate 12 % Lotion 226 Gm Bottle) 1 appl TOPICAL BID KATY; Protocol Pharmacy Consult (Consult Rx Vancomycin Dosing) 1 each MISCELLANE DAILY PRN PRN Reason: Consult order Sodium Chloride (0.9 % Sodium Chloride Flush 3 Ml Syringe) 3 ml IVFLUSH QSHIFT KATY Last Admin: 12/29/23 07:15 Dose: Not Given Home Medications Medication Instructions Recorded Confirmed Last Taken Type candesartan 16 mg tablet 16 mg PO DAILY 12/29/23 12/29/23 Unknown History furosemide 40 mg tablet 40 mg PO DAILY 12/29/23 12/29/23 Unknown History Physical Exam 2 Vital Signs: Vital Signs: Last Vital Signs Temp 96.9 F 12/29/23 11:43 Pulse 69 12/29/23 11:43 Resp 18 12/29/23 11:43 BP 150/90 H 12/29/23 11:43 Pulse Ox 98 12/29/23 11:43 O2 Del Method Room Air 12/29/23 11:43 BMI result Body Mass Index 49.1 Const: General: cooperative, healthy appearing and comfortable O rientation/consciousness: oriented to person, oriented to place and oriented to time Neck: Carotids: no bruits Chest: Chest palpation & inspection: normal inspection of the chest and normal palpation of entire chest wall Resp: Effort & Inspection: normal respiratory effort and able to speak in complete sentences Cardio: Rate: regular rate Heart sounds: S1 normal heart sound present and S2 normal heart sound present Peripheral pulses: Peripheral pulses 2+ throughout GI: Other: Large umbilical hernia Skin: Other: +3 edema, large rope-like varicosities greater than 4 mm right medial thigh and calf CEAP Classification C6 - open ulceration Ep - Etiology Primary As - superficial veins P - reflux General skin exam: dry skin Neuro: General: oriented to person, oriented to place and oriented to time Extrem: Right lower extremity: full ROM, normal capillary refill and edema Left lower extremity: full ROM, normal capillary refill and edema Psych: Mental Status: mental status grossly normal Results Labs 12/29/23 04:43 12/29/23 04:43 Labs: Abnormal lab results 12/28/23 12/29/23 Range/Units 19:33 04:43 RBC 4.38 L 4.36 L (4.60-5.80) X10*6/uL Hgb 12.8 L 12.7 L (14.0-18.0) g/dl Hct 38.8 L 38.9 L (42.0-52.0) % Immature Gran % (Auto) 0.5 H (0.0-0.4) % Eos % (Auto) 4.1 H 4.9 H (0-4) % Abs Immat Gran (auto) 0.04 H (0.00-0.03) X10*3/uL ESR 40 H (0-15) MM/HR BUN 23 H 22 H (9-16) mg/dL Random Glucose 148 H 116 H (60-115) mg/dL C-Reactive Protein 4.95 H (< or = 0.50) mg/dL Short CBC 12/28/23 12/29/23 Range/Units 19:33 04:43 WBC 8.1 7.2 (4.8-10.8) X10*3/uL Hgb 12.8 L 12.7 L (14.0-18.0) g/dl Hct 38.8 L 38.9 L (42.0-52.0) % Plt Count 238 234 (160-400) X10*3/uL BMP 12/28/23 12/29/23 19:33 04:43 Sodium 142 142 Potassium 4.3 4.1 Chloride 105 106 Carbon Dioxide 29 27 BUN 23 H 22 H Creatinine 1.07 0.87 Calcium 9.4 D 9.0 Liver Function 12/28/23 12/29/23 Range/Units 19:33 04:43 Total Bilirubin 0.2 0.5 (0.0-1.0) mg/dL AST 15 14 (5-37) U/L ALT 13 11 (0-40) U/L Alkaline Phosphatase 85 71 (39-117) U/L Albumin 3.7 3.6 (3.5-5.0) g/dL All other labs normal. Imaging Additional studies: Venous duplex was negative for DVT Assessment and Plan (1) PAD (peripheral artery disease): Status: Acute I was unable to appreciate palpable arterial pulses. Some of this may be secondary to the large amount of edema on his lower extremities. Will obtain noninvasive arterial testing to rule that out. Would recommend elevation and Jerson wraps of the lower extremities. Will follow-up with arterial testing. (2) Varicose veins of left lower extremity with inflammation: Status: Acute He does have venous disease and there are definitely visible varicosities. This may be contributing to the edema. This can be worked up as an outpatient. We did discuss this as well. (3) Lymphedema: Status: Acute Patient clearly has clinical stigmata of lymphedema. I do believe this is contributing to this as well. We will workup arterial and venous disease. Subsequent to that he may benefit from lymphedema pumps which we can help coordinate him to get. Once again this can be done as an outpatient. (4) Umbilical hernia: Qualifiers: Obstruction and gangrene presence: without obstruction or gangrene Qualified Code(s): K42.9 - Umbilical hernia without obstruction or gangrene Status: Acute Large umbilical hernia noted. Will get General surgery evaluation. No evidence of acute obstruction Procedures Date of Service Date of Service: 12/29/23
[2023-12-29] MEDS: Ammonium Lactate 12 % Lotion 226 GM BOTTLE 1 APPL TOPICAL ×2 (12:44→20:57)
[2023-12-29] MEDS: vancomycin HCL 1,250 MG in 0.9 % Sodium Chloride 250 ML 166.67 MG IV (12:45)
--- NOTE | 2023-12-29 14:43 | P.CONGS_ITS ---
History of Present Illness Consult details Consult date: 12/29/23 <Ritika Salvador PA-C - Last Filed: 12/29/23 15:07> Reason for consult: hernia <Ritika Salvador PA-C Last Filed: 12/29/23 15:07> Requesting physician: Logan Roque <Ritika Salvador PA-C - Last Filed: 12/29/23 15:07> Narrative: Mr. Titus Hayward is a 63-year-old gentleman with a past medical history hypertension and heart disease on chronic diuretics who presented to the ED with significant swelling and ulceration of the left lower extremity that has progressively worsened. He was admitted to the hospitalist service and started on IV abx. He was being evaluated by vascular surgery who noted an umbilical hernia and therefore consulted general surgery. He denies abdominal pain, nausea or vomiting. He is passing flatus and having normal BM. <Ritika Salvador PA-C Last Filed: 12/29/23 15:07> Review of Systems 2 Constitutional: Constitutional: Denies chills and Denies fever(s) < Ritika Salvador PA-C Last Filed: 12/29/23 15:07> ENT: Denies dizziness <Ritika Salvador PA-C Last Filed: 12/29/23 15:07> Cardiovascular: Cardiovascular: Denies chest pain and Denies dyspnea < Ritika Salvador PA-C Last Filed: 12/29/23 15:07> Respiratory: Respiratory: Denies dyspnea <Ritika Salvador PA-C Last Filed: 12/29/23 15:07> Gastrointestinal: Gastrointestinal: Reports as per HPI <Ritika Salvador PA-C Last Filed: 12/29/23 15:07> Integumentary/Breasts: Skin/Breast: Denies rash <Ritika Salvador PA-C Last Filed: 12/29/23 15:07> Neurologic: Denies dizziness <Ritika Salvador PA-C Last Filed: 12/29/23 15:07> [facility] Past Medical History Medical History: Medical History (Updated 12/29/23 @ 12:14 by Logan Roque MD) Essential hypertension Obesity Chronic venous stasis Hypertension <Ritika Salvador PA-C - Last Filed: 12/29/23 15:07> Social History Social History: Social History Household Members: Spouse Housing: House Do you presently have visiting nurse or other home services: No Patient Tobacco Use Status: Never used Tobacco service: No <Ritika Salvador PA-C - Last Filed: 12/29/23 15:07> Meds Allergies/Adverse reactions: Allergies Allergy/AdvReac Type Severity Reaction Status Date / Time amlodipine [AMLODIPINE] Allergy Intermediate MUSCLE Verified 12/29/23 00:09 WEAKNESS, muscle aches, muscle aches lisinopril [LISINOPRIL] Allergy Mild COUGH Verified 12/29/23 00:09 valsartan Allergy Muscle Verified 12/29/23 10:21 cramps <GENO Saleh Last Filed: 12/29/23 15:07> Active Medications: Current Medications Acetaminophen (Acetaminophen 325 Mg Tablet) 975 mg PO Q6H PRN PRN Reason: Pain, Mild (Pain Scale 1-3) Furosemide (Furosemide 40 Mg Tablet) 40 mg PO DAILY [facility]; Protocol Last Admin: 12/29/23 10:13 Dose: 40 mg Heparin Sodium (Porcine) (Heparin Sodium,Porcine 5,000 Unit/Ml Vial) 5,000 unit SUBCUT Q8H [facility] Last Admin: 12/29/23 10:13 Dose: 5,000 unit Piperacillin Sod/Tazobactam (Sod 3.375 gm/ Sodium Chloride) 50 mls @ 100 mls/hr IV Q6H [facility] Last Infusion: 12/29/23 12:40 Dose: Infused Vancomycin HCl 1,250 mg/ (Sodium Chloride) 250 mls @ 166.667 mls/hr IV Q12H [facility] Last Infusion: 12/29/23 14:36 Dose: Infused Lactic Acid (Ammonium Lactate 12 % Lotion 226 Gm Bottle) 1 appl TOPICAL BID [facility]; Protocol Last Admin: 12/29/23 12:44 Dose: 1 appl Pharmacy Consult (Consult Rx Vancomycin Dosing) 1 each MISCELLANE DAILY PRN PRN Reason: Consult order Sodium Chloride (0.9 % Sodium Chloride Flush 3 Ml Syringe) 3 ml IVFLUSH QSHIFT [facility] Last Admin: 12/29/23 07:15 Dose: Not Given <Ritika Salvador PA-C Jenny Last Filed: 12/29/23 15:07> Home medications: Home Medications Medication Instructions Recorded Confirmed Last Taken Type candesartan 16 mg tablet 16 mg PO DAILY 12/29/23 12/29/23 Unknown History furosemide 40 mg tablet 40 mg PO DAILY 12/29/23 12/29/23 Unknown History <Ritika Salvador PA-C Jenny Last Filed: 12/29/23 15:07> Physical Exam 2 Vital Signs: Vital Signs: Last Vital Signs Temp 96.9 F 12/29/23 11:43 Pulse 69 12/29/23 11:43 Resp 18 12/29/23 11:43 BP 150/90 H 12/29/23 11:43 Pulse Ox 98 12/29/23 11:43 O2 Del Method Room Air 12/29/23 11:43 BMI result Body Mass Index 49.1 <Ritika Salvador PA-C [employer] Last Filed: 12/29/23 15:07> Const: General: comfortable, no acute distress and alert <Ritika Salvador PA-C [employer] Last Filed: 12/29/23 15:07> Nutritional Appearance: obese <Ritika Salvador PA-C [employer] Last Filed: 12/29/23 15:07> Orientation/consciousness: patient oriented x3 <Ritika Salvador PA-C [employer] Last Filed: 12/29/23 15:07> Resp: Effort & Inspection: normal respiratory effort <Ritika Salvador PA-C [employer] Last Filed: 12/29/23 15:07> GI: Other: protuberant abdomen <Ritika Salvador PA-C [employer] Last Filed: 12/29/23 15:07> Inspection: No scar and Yes visible herniation <Ritika Salvador PA-C [employer] Last Filed: 12/29/23 15:07> Palpation (GI): Soft to palpation and Hernia present (large umbilical hernia, soft, reducible, no overlying skin changes) umbilical <GENO Saleh Last Filed: 12/29/23 15:07> Neuro: General: patient oriented x3 and moves all extremities <Ritika Salvador PA-C - Last Filed: 12/29/23 15:07> Results Labs Result diagrams: 12/29/23 04:43 12/29/23 04:43 <Ritika Salvador PA-C - Last Filed: 12/29/23 15:07> Labs: Abnormal lab results 12/28/23 12/29/23 Range/Units 19:33 04:43 RBC 4.38 L 4.36 L (4.60-5.80) X10*6/uL Hgb 12.8 L 12.7 L (14.0-18.0) g/dl Hct 38.8 L 38.9 L (42.0-52.0) % Immature Gran % (Auto) 0.5 H (0.0-0.4) % Eos % (Auto) 4.1 H 4.9 H (0-4) % Abs Immat Gran (auto) 0.04 H (0.00-0.03) X10*3/uL ESR 40 H (0-15) MM/HR BUN 23 H 22 H (9-16) mg/dL Random Glucose 148 H 116 H (60-115) mg/dL C-Reactive Protein 4.95 H (< or = 0.50) mg/dL Short CBC 12/28/23 12/29/23 Range/Units 19:33 04:43 WBC 8.1 7.2 (4.8-10.8) X10*3/uL Hgb 12.8 L 12.7 L (14.0-18.0) g/dl Hct 38.8 L 38.9 L (42.0-52.0) % Plt Count 238 234 (160-400) X10*3/uL BMP 12/28/23 12/29/23 19:33 04:43 Sodium 142 142 Potassium 4.3 4.1 Chloride 105 106 Carbon Dioxide 29 27 BUN 23 H 22 H Creatinine 1.07 0.87 Calcium 9.4 D 9.0 Liver Function 12/28/23 12/29/23 Range/Units 19:33 04:43 Total Bilirubin 0.2 0.5 (0.0-1.0) mg/dL AST 15 14 (5-37) U/L ALT 13 11 (0-40) U/L Alkaline Phosphatase 85 71 (39-117) U/L Albumin 3.7 3.6 (3.5-5.0) g/dL All other labs normal. <Ritika Salvador PA-C - Last Filed: 12/29/23 15:07> Assessment and Plan (1) Umbilical hernia: Qualifiers: Obstruction and gangrene presence: without obstruction or gangrene Qualified Code(s): K42.9 - Umbilical hernia without obstruction or gangrene <Ritika Salvador PA-C - Last Filed: 12/29/23 15:07> Status: Acute <Ritika Salvador PA-C - Last Filed: 12/29/23 15:07> Patient with note of an umbilical hernia, reducible, with the defect probably about 3.5 cm in diameter Nontender Abdomen soft and benign He has other acute issues for now including lymphedema of the left leg I told him that we can see him in the office down the line if he is considering repair of this hernia He is comfortable with the plan Seen and examined independently <Tereso Barker MD - Last Filed: 12/29/23 15:46> 63-year-old gentleman with a past medical history hypertension and heart disease on chronic diuretics who presented with progressively worsening left lower extremity swelling and ulceration found to have an umbilical hernia. He is currently asymptomatic from this hernia and it is currently soft and reducible with no overlying skin changes. He can follow up in the office for possible repair down the line. Patient comfortable with plan. <Ritika Salvador PA-C - Last Filed: 12/29/23 15:07> Procedures Date of Service Date of Service: 12/29/23 <Ritika Salvador PA-C - Last Filed: 12/29/23 15:07> 12/29/23 <Tereso Barker MD - Last Filed: 12/29/23 15:46>
--- NOTE | 2023-12-29 15:07 | MHC.CM.PN ---
Addendum entered by Toña Corbett 12/31/23 08:27: PT REPORTS HE HAS A NEW PT APPT WITH [facility] SCHEDULED FOR JANUARY 17, 2024. HE IS NOT CURRENTLY ACTIVE WITH A PCP Original Note: pt lives with is indepedent home no servies has own ride
--- NOTE | 2023-12-29 15:17 | P.CDIM_ITS ---
PROVIDER RESPONSE TEXT: To clarify, the appropriate diagnosis supported by the clinical indicators: Morbid obesity QUERY TEXT: PHYSICIAN'S DOCUMENTATION REQUEST Date of Query: 12/29/2023 11:51 AM EST Patient Name: Titus Hayward Admit Date: 12/29/2023 Dear Francesca Mtz, A review of the medical record indicates additional documentation may be needed. Please review below and update the documentation accordingly. Clinical Indicators: BMI 49.1 5ft 9in 150.9kg If possible, please provide an associated diagnosis related to the abnormal BMI, such as: Obesity Due to excess calories Obesity Due to other cause Specify the other cause Morbid obesity Other (explain) Clinically unable to determine (explain) Thank you, Marilee Moore, CCS, CDIS Use of terms such as suspected, likely, concern for, or probable (associated with a specific diagnosi s that is being evaluated, monitored, or treated as if it exists) are acceptable and can be coded in the inpatient se tting, when documented at the time of discharge. Please use your independent medical judgment in providing your response. THIS QUERY IS PART OF THE PERMANENT MEDICAL RECORD
[2023-12-29 16:00] VITALS: BP 159/80; PULSE 70; RESP 18; TEMP 36.6; O2SAT 95
[2023-12-29] MEDS: 0.9 % Sodium Chloride Flush 3 ML SYRINGE IVFLUSH ×2 (18:03→21:08)
[2023-12-29 19:56] VITALS: BP 145/85; PULSE 75; RESP 18; TEMP 36.6; O2SAT 93
[2023-12-30] MEDS: Piperacillin Sodium/Tazobactam 3.375 GM in 0.9 % Sodium Chloride 50 ML IV ×4 (00:05→18:07)
[2023-12-30] MEDS: Heparin Sodium,Porcine 5,000 UNIT/ML VIAL 5000 UNIT SUBCUT ×3 (00:09→18:00)
[2023-12-30] MEDS: vancomycin HCL 1,250 MG in 0.9 % Sodium Chloride 250 ML 166.67 MG IV ×2 (00:42→12:46)
[2023-12-30 03:39] VITALS: BP 144/73; PULSE 64; RESP 18; TEMP 36.5; O2SAT 96
[2023-12-30 07:17] VITALS: BP 139/72; PULSE 62; RESP 18; TEMP 36.6; O2SAT 95
[2023-12-30] MEDS: Furosemide 40 MG TABLET PO (08:15)
[2023-12-30] MEDS: 0.9 % Sodium Chloride Flush 3 ML SYRINGE IVFLUSH ×3 (08:16→20:41)
[2023-12-30] MEDS: Ammonium Lactate 12 % Lotion 226 GM BOTTLE 1 APPL TOPICAL ×2 (08:17→20:38)
[2023-12-30 08:22] LABS: Hematocrit 38.6 % (42.0-52.0); Hemoglobin 12.8 g/dl (14.0-18.0); Mean Corpuscular HGB Conc 33.2 g/dl (31.0-36.0); Mean Corpuscular Hemoglobin 29.5 pg (27.0-33.0); Mean Corpuscular Volume 88.9 fL (80.0-98.0); Mean Platelet Volume 10.2 fL (9.4-12.4); Platelet Count 247 X10*3/uL (160-400); Red Blood Count 4.34 X10*6/uL (4.60-5.80); Red Cell Distribution Width 13.1 % (11.0-16.0); White Blood Count 6.6 X10*3/uL (4.8-10.8)
[2023-12-30 08:31] LABS: Anion Gap 13 (12-20); Blood Urea Nitrogen 17 mg/dL (9-16); Calcium 9.3 mg/dL (8.4-10.2); Carbon Dioxide 26 mmol/L (22-29); Chloride 105 mmol/L (96-108); Creatinine Clr Calc Pharmacy 123.2; Estimated Glomerular Filt Rate > 60; Glucose Random 119 mg/dL (60-115); Sodium 140 mmol/L (135-145)
[2023-12-30 12:05] LABS: Vancomycin Random 12.3 mcg/mL (15-20)
--- NOTE | 2023-12-30 12:17 | P.PNIM_ITS ---
Subjective Subjective Date of Service: 12/30/23 Interval History: Seen and evaluated feels better overall still has foot and leg edema less pain and erythema no fever or chills Review of Systems Review of Systems: Yes all other systems are reviewed and are negative Physical Exam 2 Vital Signs: Vital Signs: Last Vital Signs Temp 98 F 12/30/23 07:17 Pulse 62 12/30/23 07:17 Resp 18 12/30/23 07:17 BP 139/72 12/30/23 07:17 Pulse Ox 95 12/30/23 07:17 O2 Del Method Room Air 12/30/23 07:17 BMI result Body Mass Index 49.1 Const: Other: Constitutional : Awake, interactive, not in distress Neck : Normal inspection, Supple Cardiovascular : RRR, no JVP, +2 left lower extremity edema, less edema on right Respiratory : good bilateral air entry, no crackles, wheezes or rhonchi Gastrointestinal: soft, lax, Normal bowel sounds, Non tender, umbilical hernia Skin : Warm, Dry, chronic stasis dermatitis findings with dry skin and surrounding erythema improving Neurological : Alert & oriented x3, No focal deficit Objective Data Active Medications Acetaminophen (Acetaminophen 325 Mg Tablet) 975 mg PO Q6H PRN PRN Reason: Pain, Mild (Pain Scale 1-3) Furosemide (Furosemide 40 Mg Tablet) 40 mg PO DAILY [facility]; Protocol Last Admin: 12/30/23 08:15 Dose: 40 mg Documented By: ANDRÉS Heparin Sodium (Porcine) (Heparin Sodium,Porcine 5,000 Unit/Ml Vial) 5,000 unit SUBCUT Q8H [facility] Last Admin: 12/30/23 08:15 Dose: 5,000 unit Documented By: ANDRÉS Piperacillin Sod/Tazobactam (Sod 3.375 gm/ Sodium Chloride) 50 mls @ 100 mls/hr IV Q6H [facility] Last Admin: 12/30/23 12:03 Dose: 100 mls/hr Documented By: ANDRÉS Vancomycin HCl 1,250 mg/ (Sodium Chloride) 250 mls @ 166.667 mls/hr IV Q12H [facility] Last Infusion: 12/30/23 02:20 Dose: Infused Documented By: PAT Lactic Acid (Ammonium Lactate 12 % Lotion 226 Gm Bottle) 1 appl TOPICAL BID [facility]; Protocol Last Admin: 12/30/23 08:17 Dose: 1 appl Documented By: ANDRÉS Non-Formulary Medication (Pt Own ( Candesartan 16 Mg Tablet) 16 mg PO DAILY [facility] Last Admin: 12/30/23 10:26 Dose: 16 mg Documented By: ANDRÉS Pharmacy Consult (Consult Rx Vancomycin Dosing) 1 each MISCELLANE DAILY PRN PRN Reason: Consult order Sodium Chloride (0.9 % Sodium Chloride Flush 3 Ml Syringe) 3 ml IVFLUSH QSHIFT [facility] Last Admin: 12/30/23 08:16 Dose: 3 ml Documented By: ANDRÉS Labs 12/30/23 08:01 12/30/23 08:01 Labs: Laboratory Results - last 24 hr 12/30/23 12/30/23 08:01 11:43 MCV 88.9 MCH 29.5 MCHC 33.2 RDW 13.1 Plt Count 247 MPV 10.2 Absolute Nucleated RBC 0.000 Nucleated RBC % (auto) 0.0 Anion Gap 13 Estim Creat Clear Calc 123.2 Estimated GFR > 60 Random Glucose 119 H Calcium 9.3 Random Vancomycin 12.3 L Assessment and Plan (1) Lymphedema: Status: Acute (2) Varicose veins of left lower extremity with inflammation: Status: Acute (3) Cellulitis of left leg: Status: Acute Plan Titus Hayward is a 63 years old man admitted with: Left lower extremity cellulitis No evidence of OM in MRI US showed no DVT IV antibiotic therapy with vancomycin and Zosyn Vascular surgery consult; outpatient surgical intervention for varicose veins follow Vanco trough Umbilica hernia General surgery input appreicated; outpatient surgery # Essential hypertension. Continue candesartan. Continue to monitor blood pressure. # Hyperglycemia, resolved hemoglobin A1c. 6 # Morbid Obesity. BMI 49.1 kg/m2. advised Weight loss. DVT prophylaxis: Heparin subQ Code status: Full Patient will need hospitalization for overnight for left lower extremity treatment with IV antibiotics pending clinical improvement Quality Stroke Does the patient have a stroke diagnosis?: No VTE Prior VTE?: No VTE Risk Level:: Medical - moderate - high VTE Device Contraindication: Treatment Not Indicated VTE Drug Contraindication: N/A - Med Ordered
--- NOTE | 2023-12-30 13:39 | HO.VASCPN ---
Subjective Subjective Date of Service: 12/30/23 Patient reports: no new complaints and feels better Interval history: Patient seen and examined. No significant events overnight. Edema has improved significantly. Now for routine follow-up. Of note patient has undergone noninvasive arterial testing. Physical Exam Vital Signs: Vital Signs: Last Vital Signs Temp 98 F 12/30/23 07:17 Pulse 62 12/30/23 07:17 Resp 18 12/30/23 07:17 BP 139/72 12/30/23 07:17 Pulse Ox 95 12/30/23 07:17 O2 Del Method Room Air 12/30/23 07:17 BMI result Body Mass Index 49.1 Const: General: cooperative, healthy appearing and no acute distress Orientation/consciousness: oriented to person, oriented to place and oriented to time HEENT: Head: Yes normal to inspection Neck: Carotids: no bruits Chest: Chest palpation & inspection: normal inspection of the chest Resp: Effort & Inspection: normal respiratory effort and able to speak in complete sentences Auscultation: clear to auscultation bilaterally Cardio: Rate: regular rate Heart sounds: S1 normal heart sound present and S2 normal heart sound present GI: Inspection: Yes normal to inspection Skin: Other: Left leg swelling General skin exam: no rashes or lesions noted Wounds: no wounds Neuro: General: oriented to person, oriented to place, oriented to time and CN's II-XI intact bilaterally Extrem: General: Yes normal to inspection, Yes full ROM and Yes no clubbing, cyanosis or edema Psych: Appearance: grossly normal and well kempt Speech and movement: Normal speech and movement present Affect: normal affect Progress Note: A&P Assessment and plan (1) Varicose veins of left lower extremity with inflammation: Status: Acute Assessment and Plan: In short patient has significantly swollen lower extremities. There are multiple etiologies of this. Of concern is venous disease and lymphedema. Patient is arterial status is within normal limits. I did discuss these findings with the patient. At the current time continue with local wound care and Jerson wrap. Patient can follow up with me as an outpatient. Thank you for allowing us to assist in his care. Time Spent With Patient Time: Total time managing care of this patient today ____ minutes. Procedures Date of Service Date of Service: 12/30/23 Quality Stroke Does the patient have a stroke diagnosis?: No VTE Prior VTE?: No VTE Risk Level:: Medical - moderate - high VTE Device Contraindication: Treatment Not Indicated VTE Drug Contraindication: N/A - Med Ordered
[2023-12-30 15:49] VITALS: BP 160/74; PULSE 70; RESP 16; TEMP 37.2; O2SAT 95
[2023-12-30 20:00] VITALS: BP 165/78; PULSE 60; RESP 18; TEMP 36.8; O2SAT 95
[2023-12-30] MEDS: diphenhydrAMINE HCL 25 MG CAPSULE 50 MG PO (21:01)
[2023-12-31] MEDS: Piperacillin Sodium/Tazobactam 3.375 GM in 0.9 % Sodium Chloride 50 ML IV ×2 (00:02→06:00)
[2023-12-31] MEDS: Heparin Sodium,Porcine 5,000 UNIT/ML VIAL 5000 UNIT SUBCUT (00:03)
[2023-12-31] MEDS: vancomycin HCL 1,250 MG in 0.9 % Sodium Chloride 250 ML 166.67 MG IV (00:36)
[2023-12-31 03:23] VITALS: BP 150/74; PULSE 66; RESP 18; TEMP 36.3; O2SAT 94
[2023-12-31 07:25] LABS: Creatinine Clr Calc Pharmacy 111.8; Estimated Glomerular Filt Rate > 60
[2023-12-31 07:50] VITALS: BP 164/85; PULSE 69; RESP 16; TEMP 36.1; O2SAT 93
[2023-12-31] MEDS: Furosemide 40 MG TABLET PO (08:52)
[2023-12-31] MEDS: Ammonium Lactate 12 % Lotion 226 GM BOTTLE 1 APPL TOPICAL (08:53)
[2023-12-31] MEDS: 0.9 % Sodium Chloride Flush 3 ML SYRINGE IVFLUSH (08:55)
--- NOTE | 2023-12-31 11:09 | MHC.CM.PN ---
PT WILL DC HOME TODAY WITH RESUMPTION OF WOUND CENTER CARE TO TRANSPORT
--- NOTE | 2023-12-31 11:09 | PM.DS ---
DS: Providers Provider Date of Service: 12/31/23 Date of admission: 12/29/23 01:22 Primary care physician: Jack Turner MD Consults: 12/29/23 01:27 Consult to Vascular Surgery Routine Consulting Provider: [facility] [place] Vascular Services Reason for consultation: hx of PVD, Lt leg cellulitis, pt requested to see vascular surgeon Has provider been notified: No 12/29/23 12:16 Consult to General Surgery Routine Consulting Provider: [facility] [place] General Surgeons Reason for consultation: Large midline/umbilical hernia Has provider been notified: No Consult to Wound Care Routine Reason for consultation: Left leg ulcer 12/29/23 12:17 Consult to Wound Care Routine Reason for consultation: left leg cellulitis , weeping wounds Has provider been notified: Yes DS: Diagnosis Discharge Diagnosis (1) Varicose veins of left lower extremity with inflammation: Status: Acute (2) Umbilical hernia: Status: Acute (3) Lymphedema: Status: Acute (4) Cellulitis of left leg: Status: Acute DS: Summary Hospital Course Hospital Course: Admission note HPI Titus Hayward is a 63 years old man with past medical history significant for essential hypertension presents to the emergency department complaining of left leg swelling associated with redness that has been getting worse over the last 2 weeks. The redness and swelling is involving his left thight. He did not report any fevers chills. He did not report any acute cardiopulmonary, gastrointestinal or genitourinary symptoms. He does have history of chronic venous stasis and mentioned that about 10 years ago he was evaluated by our vascular surgeon. In the ED, he was found to have significant hypertension, however it has been decreasing. His blood pressure is 175/89. There is no tachycardia or fever. Blood workup showed no leukocytosis. ESR and CRP are elevated. There are no significant electrolyte imbalances. His glucose is 148. Tib-fib x-ray showed soft tissue inflammatory changes and left fibula finding representing sequela of prior osteomyelitis or chronic and/or recrudescent osteomyelitis. Left lower extremity venous ultrasound showed no DVT. Hospital course The patient was admitted for evaluation of Left lower extremity cellulitis with No evidence of OM in MRI of lower extremity. US showed no DVT. Treated with IV antibiotic therapy with vancomycin and Zosyn with good response over the course of hospital stay as swelling and erythema improved. Vascular surgery consult; outpatient surgical intervention for varicose veins. He has Umbilica hernia that was evaluated by General surgery who recommended outpatient surgery. Time Attestation Discharge coordination time: Greater than 30 minutes Quality: Safe Use of Opioids Does Pt have an Active Cancer Diagnosis on the Problem List?: No Quality: Stroke Does the patient have a stroke diagnosis?: No Physical Exam Vital Signs: Vital Signs: Last Vital Signs Temp 96.9 F 12/31/23 07:50 Pulse 69 12/31/23 07:50 Resp 16 12/31/23 07:50 BP 164/85 H 12/31/23 07:50 Pulse Ox 93 12/31/23 07:50 O2 Del Method Room Air 12/31/23 07:50 BMI result Body Mass Index 49.1 Const: Other: Constitutional : Awake, interactive, not in distress Neck : Normal inspection, Supple Cardiovascular : RRR, no JVP, +1 left lower extremity edema, less edema on right Respiratory : good bilateral air entry, no crackles, wheezes or rhonchi Gastrointestinal: soft, lax, Normal bowel sounds, Non tender, umbilical hernia Skin : Warm, Dry, chronic stasis dermatitis findings with dry skin and resolving erythema Neurological : Alert & oriented x3, No focal deficit DS: Data Data Completed and Pending Labs on day of discharge: Laboratory Results - last 24 hr 12/30/23 12/31/23 11:43 05:58 Creatinine 0.97 Estim Creat Clear Calc 111.8 Estimated GFR > 60 Random Vancomycin 12.3 L Imaging Chest x-ray: Radiologist's impression: ITS Impressions Tibia/Fibula X-Ray 12/28/23 18:07 IMPRESSION: Left and right tibia/fibula: *Bilateral marked soft tissue inflammatory changes adjacent to the tibia/fibula which may represent cellulitis and/or edema. No soft tissue emphysema. *Cortical indistinctness of the proximal fibular diaphyses bilaterally. Findings are grossly unchanged within the proximal left fibula compared with the incidentally visualized portions of the left fibula on the comparison knee radiographs of 01/05/2022. Current findings may represent the sequela of prior osteomyelitis or could represent chronic and/or recrudescent osteomyelitis. As clinically indicated, findings may be further evaluated with MRI. Findings may also represent fibular osteopenia secondary to chronic soft tissue inflammatory changes and adjacent soft tissue hyperemia. *Partial visualization of chronic appearing well-corticated ossific bodies along the lateral aspect of the left and right ankles which may represent the sequela of remote injury. Tibia/Fibula X-Ray 12/28/23 18:07 IMPRESSION: Left and right tibia/fibula: *Bilateral marked soft tissue inflammatory changes adjacent to the tibia/fibula which may represent cellulitis and/or edema. No soft tissue emphysema. *Cortical indistinctness of the proximal fibular diaphyses bilaterally. Findings are grossly unchanged within the proximal left fibula compared with the incidentally visualized portions of the left fibula on the comparison knee radiographs of 01/05/2022. Current findings may represent the sequela of prior osteomyelitis or could represent chronic and/or recrudescent osteomyelitis. As clinically indicated, findings may be further evaluated with MRI. Findings may also represent fibular osteopenia secondary to chronic soft tissue inflammatory changes and adjacent soft tissue hyperemia. *Partial visualization of chronic appearing well-corticated ossific bodies along the lateral aspect of the left and right ankles which may represent the sequela of remote injury. Venous Duplex 12/28/23 18:48 IMPRESSION: 1. No DVT demonstrated in the bilateral lower extremities with the caveat of nonvisualization of the left peroneal veins. If the patient's symptoms persist, followup ultrasound in 5 days 7 days might be of value to exclude proximal propagation from a non-visualized calf vein. 2. Enlarged left greater than right inguinal lymph nodes, likely reactive in nature. Lower Extremity MRI 12/29/23 16:23 IMPRESSION: * The diffuse edema of subcutaneous tissues of the left lower extremity is nonspecific. This could be secondary to venous insufficiency, lymphedema and/or cellulitis. * There are no focal organized fluid collections within superficial or deep tissues. * No evidence of tibia or fibula osteomyelitis. Abd US [id number] 12/29/23 20:30 IMPRESSION: Right leg: Nondiagnostic MAYA due to noncompressible vessels. Normal PVR waveform. Widely patent arterial flow throughout the right lower extremity without significant arterial stenosis or occlusion Left leg: Nondiagnostic MAYA due to noncompressible vessels. Normal PVR waveform. Patent arterial flow throughout the left lower extremity without significant arterial stenosis or occlusion. Dampened waveforms are seen in the below-knee runoff vessels which could be due to distal microvascular disease or in the setting of severe edema. MAYA Reference: - >1.4 = calcified vessels - 0.9 - 1.4 = normal - no significant arterial disease - 0.7 - 0.89 = mild peripheral arterial disease - 0.51 - 0.69 = moderate peripheral arterial disease - ? 0.50 = severe peripheral arterial disease - < .30 = critical arterial disease Duplex Scan Lower Extremity Artery 12/29/23 20:30 IMPRESSION: Right leg: Nondiagnostic MAYA due to noncompressible vessels. Normal PVR waveform. Widely patent arterial flow throughout the right lower extremity without significant arterial stenosis or occlusion Left leg: Nondiagnostic MAYA due to noncompressible vessels. Normal PVR waveform. Patent arterial flow throughout the left lower extremity without significant arterial stenosis or occlusion. Dampened waveforms are seen in the below-knee runoff vessels which could be due to distal microvascular disease or in the setting of severe edema. MAYA Reference: - >1.4 = calcified vessels - 0.9 - 1.4 = normal - no significant arterial disease - 0.7 - 0.89 = mild peripheral arterial disease - 0.51 - 0.69 = moderate peripheral arterial disease - ? 0.50 = severe peripheral arterial disease - < .30 = critical arterial disease Discharge Plan Discharge Anticipated Discharge Date/Time: 12/31/23 10:45 Patient Disposition: Home, Self-Care Discharge Diagnosis: Left leg cellulitis Referrals: Jack Turner MD [Primary Care Provider] - 1 Week Tereso Barker MD [Physician] - 2 Weeks Discharge Medications: New doxycycline monohydrate 100 mg capsule 100 mg PO BID Qty: 14 0RF amoxicillin-pot clavulanate 875-125 mg tablet 1 tab PO BID Qty: 14 0RF ammonium lactate 12 % Lotion 1 appl topical BID Qty: 400 2RF Protocol: Apply to: Apply to: lower extremities bilaterally Continued candesartan 16 mg tablet 16 mg PO DAILY furosemide 40 mg tablet 40 mg PO DAILY Discharge Orders: Discharge Order (Routine); Ordered 12/31/23 Ordered By: Francesca Mtz Diet: Advance to usual diet Activity on Discharge: As tolerated Stand Alone Forms: Patient Portal Discharge page Care Plan Goals: Read below Health Concerns: Read below Plan of Treatment: Read below Assessment: Keep leg elevated Patient Instructions: Cellulitis (ED)
[2023-12-31 22:24] LABS: CRP High Sensitivity >10.0 mg/L
== END 2023-12-31 11:35 | disposition home or self-care (01) | DRG 383 ==
LOC: HO.ED 12-29 00:21 → HO.EDOVER 12-29 01:34 → HO.S3 12-29 09:02
PROVIDERS: Physician Assistant; Admitting Provider Internal Medicine; Emergency Provider Emergency Medicine; PCP Family Medicine; Visit Provider Student in an Organized Health Care Education/Training Program
DX: L03.116 Cellulitis of left lower limb (principal); Z68.42 Body mass index [BMI] 45.0-49.9, adult; I10 Essential (primary) hypertension; I83.12 Varicose veins of left lower extremity with inflammation; E66.01 Morbid (severe) obesity due to excess calories; R73.9 Hyperglycemia, unspecified; K42.9 Umbilical hernia without obstruction or gangrene; Z79.899 Other long term (current) drug therapy
CPT/HCPCS: 36415; 73590; 73718; 80048; 80053; 80202; 82565; 83036; 85025; 85027; 85652; 86140; 86141; 93923; 93925; 93970; 99285; J1644; J2543; J3370; J3371

== ENCOUNTER → 2023-12-29 01:22 | Outpatient (BNV) | payer BC, SELFPAY | PROVIDERS: Admitting Provider Internal Medicine; Emergency Provider Emergency Medicine; PCP Family Medicine; Visit Provider Physician Assistant Surgical | DX: K42.9 Umbilical hernia without obstruction or gangrene (principal) | CPT/HCPCS: 99222 ==

== ENCOUNTER → 2023-12-29 01:22 | Outpatient (BNV) | payer BC, SELFPAY | PROVIDERS: Admitting Provider Internal Medicine; Emergency Provider Emergency Medicine; PCP Family Medicine; Visit Provider Surgery Vascular Surgery | DX: I83.12 Varicose veins of left lower extremity with inflammation (principal) | CPT/HCPCS: 99222; 99232 ==

== ENCOUNTER → 2023-12-29 01:22 | Outpatient (BNV) | payer BC, SELFPAY | PROVIDERS: Admitting Provider Internal Medicine; Emergency Provider Emergency Medicine; PCP Family Medicine; Visit Provider Internal Medicine | DX: L03.116 Cellulitis of left lower limb (principal); I10 Essential (primary) hypertension; R73.09 Other abnormal glucose | CPT/HCPCS: 99222; 99232; 99238; 99499 ==

== ENCOUNTER 2024-01-12 11:12 | Outpatient (AMB) | payer BC, SELFPAY ==
[2024-01-12 11:32] VITALS: BP 160/90; PULSE 81; RESP 13; TEMP 36.4; O2SAT 99; BMI 48.6
--- NOTE | 2024-01-12 11:32 | A.OFFPC_ITS ---
Vital Signs 01/12/24 11:32 Height 5 ft 9 in Weight 329 lb 4 oz BMI 48.6 BP 160/90 H Blood Pressure Location Rt brachial Position Sitting Respiration 13 Pulse 81 Pulse Source Pulse Oximeter Temp 97.6 F Temp Source Temporal Artery Scan Pulse Oximetry (%) 99 Oxygen Delivery Method Room Air Intake Visit Reasons: tcm appt Intake Note: Patient states that he has been having issues with left leg and has been experiencing poor circulation as well ass cellulitis. Patient would like referral for Vascular Referral and a referral for his umbilical hernia to be repaired. 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 Accompanied by: Self / Same As Patient Allergies amlodipine [AMLODIPINE] Allergy (Intermediate, Verified 01/12/24 12:06) MUSCLE WEAKNESS, muscle aches, muscle aches lisinopril [LISINOPRIL] Allergy (Mild, Verified 01/12/24 12:06) COUGH valsartan Allergy (Verified 01/12/24 12:06) Muscle cramps Medication List - Last Reconciled 01/12/24 by Lolis Green, [employer]- ammonium lactate 12% 1 appl See Protocol topical BID candesartan 16 mg PO DAILY furosemide 40 mg PO DAILY Tobacco use date assessed: 01/12/24 Fall risk assessment: No Falls in past year Last assessed Fall Risk: 01/12/24 Dental Screening Dental Screen Date: 01/12/24 Did you have a dental visit in the last 12 months?: No Did you have a dental problem in the last 6 months where you did not have access to dental care?: No Was dental information given to patient?: Yes HPI HPI Comments History of Present Illness Details 63-year-old male 63-year-old male with p eripheral vascular disease, venous stasis with ulceration, umbilical hernia, hypertension, anemia, GERD, spleenomegaly, prediabetes, systolic heart failure, Schatzki's ring Here today for hospital discharge follow-up. This is a transitional care management appointment. He was admitted to [facility] on 12/29/2023 for osteomyelitis of the left lower extremity. He was discharged to home with services on 12/31/2023. Discharge summary reviewed. Discharge with new medications Doxycycline 100 mg p.o. b.i.d. x7 days Augmentin 875/125 mg 1 tab p.o. b.i.d. x7 days Ammonium lactate 12% lotion 1 application topically twice per day apply to lower extremities bilat Continue candesartan 16 mg p.o. daily and furosemide 40 mg p.o. daily Refer to vascular surgery Referred to general surgery not urgent referral to follow-up on an asymptomatic umbilical hernia Referred to wound care Here today to follow up. Reports he does need a referral to vascular. 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 Referral placed [facility] today. He also needs a referral to General surgery. He is aware that this is not an urgent need right now however he would like to get the ball rolling as this is something that he is really worried about. Referral placed to [facility] General surgery group. States he did not receive a referral to the wound care center and does not feel like he needs this as he does not have time for this and feels like he can manage on his own at home. Has been apply ammonium lactate to his lower extremities but not doing anything to the ulcerations of bilat legs. Reports that the swelling is worse during the day when his legs are dependent improve at bedtime. He has not wearing any sort of compression devices at this time. He did complete his antibiotics as directed. He continues to take his furosemide as candesartan. He is aware that his blood pressure is not at goal. He reports lots of drug side effects in the past is not willing to change anything at today's visit. He has requesting a prescription for nitro to be used to control his blood pressure. I told him that he can follow up with his primary care provider whom he is seeing on Wednesday for this. He also has known CHF but is not being followed by Cardiology. He does not feel this is necessary. [facility] Medical History (Updated 01/12/24 @ 14:49 by Lolis Green, [facility]) Umbilical hernia Lymphedema Varicose veins of left lower extremity with inflammation PAD (peripheral artery disease) Essential hypertension Obesity Chronic venous stasis Hypertension Surgical History (Updated 01/12/24 @ 11:44 by Purvi Brown MA) History of nasal surgery Hx of tonsillectomy Family History (Updated 01/12/24 @ 11:50 by Purvi Brown MA) Mother High blood pressure Diabetes Father Diabetes High blood pressure Paternal Grandmother Thyroid disorder Maternal Grandfather Diabetes Paternal Grandfather Cancer Family/Other High blood pressure Diabetes Social History Household Members: Spouse Housing: Apartment Do you presently have visiting nurse or other home services: No Patient Tobacco Use Status: Never used Tobacco e-Cigarette/Vaping Use: Never Used service: No Current occupational status: employed 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 1. Little interest or pleasure in doing things: more than half the days 2. Feeling down, depressed, or hopeless: several days 3. Trouble falling or staying asleep, or sleeping too much: more than half the days 4. Feeling tired or having little energy: several days 5. Poor appetite or overeating: nearly every day 6. Feeling bad about yourself - or that you are a failure or have let yourself or your family down: nearly every day 7. Trouble concentrating on things, such as reading the newspaper or watching television: not at all 8. Moving or speaking so slowly that other people could have noticed. Or the opposite - being so fidgety or restless that you have been moving around a lot more than usual: not at all 9. Thoughts that you would be better off or of hurting yourself in some way: not at all Total score: 12 Depression Screening Interpretation: Positive (relates to his medical conditions ) Depression Screening Follow-up: Declines treatment Depression Screening Done: Yes 62341 - PHQ-9 Billing: Yes Source: Developed by Drs. Curtis Montes, Jocelynn Jefferson, Moshe Ochoa and colleagues, with an educational sher from [employer]. Thrive Questionnaire Date Thrive assessed: 12/29/23 I am a: Patient What is your living situation today?: I have a place to live, but I am worried about losing it in the future Within the past 12 months, did the food you bought not last and you didn't have the money to get more?: Sometimes True Within the past 12 months, did you worry whether your food would run out before you got money to buy more?: Sometimes True Do you have trouble paying for medicines?: Yes Do you have trouble getting transportation to medical appointments?: No Do you have trouble paying your heating and electricity bill?: No Do you have trouble taking care of your child, family member or friend?: No Do you have trouble with day-to-day activities such as bathing, preparing meals, shopping, managing finances, etc.?: No Are you currently unemployed and looking for a job?: No Are you interested in more education?: No Please select the resources that you would like help with: None Currently or been in a relationship where the following occur: no concerns reported THRIVE Score: 3 AUDIT C Alcohol Use Questionnaire (AUDIT-C) 1. How often do you have a drink containing alcohol?: 2-4 times a month 2. How many drinks containing alcohol do you have on a typical day when you are drinking?: 1 or 2 3. How often do you have six or more drinks on one occasion?: Never Total Score: 2 Score Reviewed/Action Taken: Yes KISHORE-7 AMB Questionnaire KISHORE-7 Date KISHORE - 7 assessed: 01/12/24 Feeling nervous, anxious, or on edge: 0 = Not at all Not being able to stop or control worryin = Several days Worrying too much about different things: 1 = Several days Trouble relaxin = Not at all Being so restless that it is hard to sit still: 0 = Not at all Becoming easily annoyed or irritable: 0 = Not at all Feeling afraid as if something awful might happen: 0 = Not at all Total KISHORE-7 score (0-4 normal; 5-9 mild; 10-14 moderate; 15-21 severe): 2 Source: Developed by Drs. Curtis Montes, Jocelynn Jefferson, Moshe Ochoa and colleagues, with an educational sher from [employer]. KISHORE-7 Assessment Billing KISHORE-7 Assessment Tool: KISHORE-7 Assessment 50682 Review of Systems Const All systems reviewed & are unremarkable except as noted in HPI and below Physical exam (Primary Care) Vital Signs: Last Vital Signs Temp 97.6 F 01/12/24 11:32 Pulse 81 01/12/24 11:32 Resp 13 01/12/24 11:32 BP 160/90 H 01/12/24 11:32 Pulse Ox 99 01/12/24 11:32 Oxygen Delivery Method Room Air 01/12/24 11:32 BMI result Body Mass Index 48.6 BMI Assessment/Plan discussion: High BMI High, discussed plan: weight reduction Tobacco/Smoking Status: Tobacco use Status Tobacco use date assessed 01/12/24 01/12/24 11:54 Patient Tobacco Use Status Never used Tobacco 01/12/24 11:54 e-Cigarette/Vaping Use Never Used 01/12/24 11:54 PHQ-9: PHQ-9 Score PHQ-9: Total score 12 01/12/24 12:27 Depression Screening Interpretation: Positive (relates to his medical conditions ) Depression Screening Follow-up: Declines treatment Thrive Assessment: Date of Thrive Assessment Date Thrive assessed 12/29/23 01/12/24 11:54 Currently or been in a relationship where the following occur: no concerns reported Const Other: awake alert NAD MMM RRR BP remains elevated on recheck 160/90 L arm sitting LS CTAB Large protruding umbilical hernia, nontender BLE nonpalp pulses, + varicosities, nails thickened, lymphedema BLE L>R. Venous stasis ulcercations bilat w/o infection L>R. Nonadh pads, Telfa and JERSON wrap applied to LLE during the visit, as it was weeping Assessment and Plan Assessment & Plan (1) Hospital discharge follow-up: Code(s): Z09 - Encounter for follow-up examination after completed treatment for conditions other than malignant neoplasm (2) Venous stasis ulcer limited to breakdown of skin with varicose veins: Comment: Referral placed to [facility] per his request. I have also ordered a Xeroform gauze which should be applied to the ulcers of both legs followed by gauze and gentle compression with an Jerson wrap. Jerson wrap was provided to him today along with education on how to use. He reports that he has compression stockings at home however this edema in bilateral lower extremities is greater than it was when he initially started using these. Advis ed him to avoid using these at this time. Elevate legs as much as possible. Continue to use ammonium lactate to the intact skin. Code(s): I83.009 - Varicose veins of unspecified lower extremity with ulcer of unspecified site; L97.901 - Non-pressure chronic ulcer of unspecified part of unspecified lower leg limited to breakdown of skin Qualifiers: Venous stasis ulcer site: other part of lower leg Laterality: left Qualified Code(s): I83.028 - Varicose veins of left lower extremity with ulcer other part of lower leg; L97.821 - Non-pressure chronic ulcer of other part of left lower leg limited to breakdown of skin (3) Umbilical hernia without obstruction and without gangrene: Comment: General surgery referral placed per his request. Code(s): K42.9 - Umbilical hernia without obstruction or gangrene (4) Essential hypertension: Comment: Blood pressure is above goal at today's visit even on rechecked. He is currently only on furosemide 40 mg daily as well as candesartan 16 mg p.o. daily. He was not willing to introduce another medication today to help opt imize his medical management of hypertension. He has a follow up with his primary care provider on Wednesday. I have asked him to address this with him then. Did make a mention of wanting to start sublingual nitro to treat his blood pressure although he is aware that this is not a standard practice. Again he can discuss with his primary care about this Code(s): I10 - Essential (primary) hypertension (5) CHF (congestive heart failure): Comment: On candesartan and furosemide. Not active with Cardiology. He does not feel a need for this. Follow up with primary care next week as scheduled Code(s): I50.9 - Heart failure, unspecified Qualifiers: Heart failure type: systolic Heart failure chronicity: chronic Qualified Code(s): I50.22 - Chronic systolic (congestive) heart failure (6) Severe obesity (BMI >= 40): Comment: Lifestyle mild encouraged Code(s): E66.01 - Morbid (severe) obesity due to excess calories (7) MDD (major depressive disorder), recurrent episode: Comment: Not currently on any medications. Not active with a counselor at this time. Was active with a counselor in the past. Did not find this to be helpful. Relates his depression to his medical conditions. Code(s): F33.9 - Major depressive disorder, recurrent, unspecified Qualifiers: Major depression episode severity: mild Qualified Code(s): F33.0 - Major depressive disorder, recurrent, mild Plan This note is constructed using voice recognition software. While every effort has been made to ensure accuracy in tax commissioner, still errors may have been included Sometimes, these errors may affect the content or meaning of the given sentence . Total time spent caring for the patient today was 60 minutes. This includes time spent before the visit reviewing the chart, time spent during the visit, and time spent after the visit on documentation Orders: Referrals Vascular Surgery Referral I83.009 - Varicose veins of unspecified lower extremity with ulcer of unspecified site, L97.901 - Non-pressure chronic ulcer of unspecified part of unspecified lower leg limited to breakdown of skin General Surgery Referral K42.9 - Umbilical hernia without obstruction or gangrene Medications: New bismuth tribrom-petrolatum,wh 5 X 9 (Xeroform Petrolatum Dressing) As directed 200 ea 0RF I83.009 - Varicose veins of unspecified lower extremity with ulcer of unspecified site, L97.901 - Non-pressure chronic ulcer of unspecified part of unspecified lower leg limited to breakdown of skin Coding Level of Care Code TCM High MDM <= 14 days Diagnoses Hospital discharge follow-up Z09 Venous stasis ulcer of other part of left lower leg limited to breakdown of skin with varicose veins I83.028; L97.821 Venous stasis ulcer site: other part of lower leg Laterality: left Umbilical hernia without obstruction and without gangrene K42.9 Essential hypertension I10 Chronic systolic congestive heart failure I50.22 Heart failure type: systolic Heart failure chronicity: chronic Severe obesity (BMI >= 40) E66.01 Mild episode of recurrent major depressive disorder F33.0 Major depression episode severity: mild Additional Codes KISHORE-7 Assessment Billing - KISHORE-7 Assessment Tool: KISHORE-7 Assessment [id number] ([id number])
== END 2024-01-12 12:28 | disposition home or self-care (01) ==
PROVIDERS: PCP Family Medicine; Visit Provider Nurse Practitioner Family
DX: I83.028 Varicose veins of left lower extremity with ulcer other part of lower leg (principal); L97.821 Non-pressure chronic ulcer of other part of left lower leg limited to breakdown of skin; I50.22 Chronic systolic (congestive) heart failure; E66.01 Morbid (severe) obesity due to excess calories; F33.0 Major depressive disorder, recurrent, mild; Z68.42 Body mass index [BMI] 45.0-49.9, adult; Z09 Encounter for follow-up examination after completed treatment for conditions other than malignant neoplasm; K42.9 Umbilical hernia without obstruction or gangrene; I10 Essential (primary) hypertension
CPT/HCPCS: 99495

== ENCOUNTER 2024-01-17 14:45 | Outpatient (AMB) | payer BC, SELFPAY ==
[2024-01-17 14:57] VITALS: BP 152/86; PULSE 75; TEMP 36.7; O2SAT 100; BMI 47.5
--- NOTE | 2024-01-17 14:57 | A.OFFPC_ITS ---
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 Varicose veins, depression SurgHx: ?Tonsils Patient?had?been?seen?by??Dakota?Nimo?in?the?past. He?denies?coronary?art tom?disease?but?has?significant?hypertension?and?CHF. Will?request??notes Patient?would?like?new?referral?to??Bill He?says?that?he?has?had?difficulty?getting?his?blood?pressure?is?cont rolled?in?the?past. Had?been?on?hydrochlorothiazide?which?was?working?and?he?tolerated?it?but?he?was ?concerned?about?his?kidneys. Most?recent?renal?function?is?fine?and?he?denies?any?history?of?renal?disease Currently?on?candesartan Blood?pressure?is?significantly?elevated Denies?chest?pain?or?shortness?of?breath Also?has?cellulitis?of?lower?extremities?and?saw?KO?recently?and?was?referred?to ?vascular?for?varicose?veins, lower?extremity?edema?and?recent?cellulitis. Also?has?a?referral?for?large?umbilical?hernia [facility] Medical History (Updated 01/17/24 @ 15:45 by Jack Turner MD) Umbilical hernia Lymphedema Varicose veins of left lower extremity with inflammation PAD (peripheral artery disease) Essential hypertension Obesity Chronic venous stasis Hypertension Surgical History (Updated 01/12/24 @ 11:44 by Purvi Brown MA) History of nasal surgery Hx of tonsillectomy Family History (Updated 01/12/24 @ 11:50 by Purvi Brown MA) Mother High blood pressure Diabetes Father Diabetes High blood pressure Paternal Grandmother Thyroid disorder Maternal Grandfather Diabetes Paternal Grandfather Cancer Family/Other High blood pressure Diabetes Social History Household Members: Spouse Housing: Apartment Do you presently have visiting nurse or other home services: No Patient Tobacco Use Status: Never used Tobacco e-Cigarette/Vaping Use: Never Used service: No Current occupational status: employed 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 Curtis Montes, Jocelynn Jefferson, Moshe Ochoa and colleagues, with an educational sher from [employer]. Review of Systems Const Denies chills, Denies fatigue, Denies fever(s), Denies headache(s) and Denies weakness ENT Denies dizziness and Denies headache(s) Card Denies chest pain, Denies lightheadedness, Denies dyspnea and Denies other (Palpitations) Resp Denies cough, Denies dyspnea, Denies wheezing and Denies other ( shortness of breath) GI Details: Large?hernia Musc Denies numbness and Denies tingling Neuro Denies dizziness, Denies headache(s), Denies numbness, Denies tingling, Denies paresthesias and Denies weakness Psych Denies anxiety and Denies depression Endo Denies fatigue Pablo/Lymph Details: Varicose?veins?and?lower?extremity?edema Aller/Immun Denies wheezing Physical exam (Primary Care) Vital Signs: Last Vital Signs Temp 98.0 F 01/17/24 14:57 Pulse 75 01/17/24 14:57 BP 152/86 H 01/17/24 14:57 Pulse Ox 100 01/17/24 14:57 Oxygen Delivery Method Room Air 01/17/24 14:57 BMI result Body Mass Index 47.5 Tobacco/Smoking Status: Tobacco use Status Tobacco use date assessed 01/17/24 01/17/24 15:01 Patient Tobacco Use Status Never used Tobacco 01/17/24 15:01 e-Cigarette/Vaping Use Never Used 01/17/24 15:01 Thrive Assessment: Date of Thrive Assessment Date Thrive assessed 12/29/23 01/17/24 15:01 Const General: no acute distress and well developed Nutritional Appearance: well nourished and obese Orientation/consciousness: patient oriented x3 HENMT Head: Yes normocephalic and Yes atraumatic Eyes General: appearance normal, both eyes and all related structures Pupils: Equal, round and reactive pupils present EOM: EOMs intact bilaterally Resp Effort & Inspection: normal respiratory effort Auscultation: clear to auscultation bilaterally Cardio Rate: regular rate Rhythm: regular rhythm Heart sounds: S1 normal heart sound present, S2 normal heart sound present, no gallops, no murmurs and no rubs GI Other: Large,?10?cm?umbilical?hernia Skin Other: Venous?stasis?dermatitis?on?bilateral?calves?and?shins Neuro General: patient oriented x3 and gait normal Cranial nerves: Yes Equal, round and reactive pupils present Extrem Other: 2+?lower?extremity?edema?bilaterally Psych Affect: normal affect Assessment and Plan Assessment & Plan (1) Essential hypertension: Code(s): I10 - Essential (primary) hypertension Plan: Poorly?controlled?blood?pressure. Has?had?difficulty?tolerating?several?blood?pressure?medications?but?has?tried?h ydrochlorothiazide?in?the?past. Will?try?candesartan-hydrochlorothiazide?combo?pill?as?he?is?tolerating?can desartan?already. Will?check?his?renal?function?which?appears?fine?but?patient?is?concerned?about? this. (2) CHF (congestive heart failure): Comment: On candesartan and furosemide. Not active with Cardiology. He does not feel a need for this. Follow up with primary care next week as scheduled Code(s): I50.9 - Heart failure, unspecified Qualifiers: Heart failure type: systolic Heart failure chronicity: chronic Qualified Code(s): I50.22 - Chronic systolic (congestive) heart failure Plan: Likely?secondary?to?uncontrolled?hypertension. Unclear?if?he?has?other?cardiac?diagnoses?such?as?coronary?artery?disease?though ?he?denies?this.??He?has?had?a?supervisor malted milk?in?the?past?and?I?will?request?r ecords?from??Lindsay. No?longer Seeing??Lindsay. Will?refer?to??Bill (3) Umbilical hernia without obstruction and without gangrene: Comment: General surgery referral placed per his request. Code(s): K42.9 - Umbilical hernia without obstruction or gangrene Plan: He?is?referred?to?surgery (4) Venous stasis ulcer limited to breakdown of skin with varicose veins: Comment: Referral placed to [facility] per his request. I have also ordered a Xeroform gauze which should be applied to the ulcers of both legs followed by gauze and gentle compression with an Jerson wrap. Jerson wrap was provided to him today along with education on how to use. He reports that he has compression stockings at home however this edema in bilateral lower extremities is greater than it was when he initially started using these. Advised him to avoid using these at this time. Elevate legs as much as possible. Continue to use ammonium lactate to the intact skin. Code(s): I83.009 - Varicose veins of unspecified lower extremity with ulcer of unspecified site; L97.901 - Non-pressure chronic ulcer of unspecified part of unspecified lower leg limited to breakdown of skin Qualifiers: Venous stasis ulcer site: other part of lower leg Laterality: left Qualified Code(s): I83.028 - Varicose veins of left lower extremity with ulcer other part of lower leg; L97.821 - Non-pressure chronic ulcer of other part of left lower leg limited to breakdown of skin Plan: He?is?referred?to?vascular?surgery Orders: Orders Lipid Panel Today Z00.00 - Encounter for general adult medical examination without abnormal findings Prostate Specific Antigen Scr Today Z12.5 - Encounter for screening for malignant neoplasm of prostate TSH reflex Free T4 Today Z00.00 - Encounter for general adult medical examination without abnormal findings Hemoglobin A1c Today R73.01 - Impaired fasting glucose Comprehensive [place]. Panel Fast Today Z00.00 - Encounter for general adult medical examination without abnormal findings Complete Blood Count Auto Diff Today Z00.00 - Encounter for general adult medical examination without abnormal findings Microalbumin, Random (w Creat) Today I10 - Essential (primary) hypertension UA and rflx microscopic Today Z00.00 - Encounter for general adult medical examination without abnormal findings B Type Natriuretic Peptide Today I50.9 - Heart failure, unspecified Medications: New candesartan-hydrochlorothiazid 16-12.5 mg 1 tab PO DAILY 90 days 90 tabs 1RF Coding Level of Care Code New Pt Level 3 (54530) Diagnoses Essential hypertension I10 Chronic systolic congestive heart failure I50.22 Heart failure type: systolic Heart failure chronicity: chronic Umbilical hernia without obstruction and without gangrene K42.9 Venous stasis ulcer of other part of left lower leg limited to breakdown of skin with varicose veins I83.028; L97.821 Venous stasis ulcer site: other part of lower leg Laterality: left
== END 2024-01-17 15:51 | disposition home or self-care (01) ==
PROVIDERS: PCP Family Medicine; Visit Provider Family Medicine
DX: I11.0 Hypertensive heart disease with heart failure (principal); I50.22 Chronic systolic (congestive) heart failure; I83.028 Varicose veins of left lower extremity with ulcer other part of lower leg; L97.821 Non-pressure chronic ulcer of other part of left lower leg limited to breakdown of skin; K42.9 Umbilical hernia without obstruction or gangrene
CPT/HCPCS: 99203

== ENCOUNTER 2024-01-18 11:54 | Outpatient (REF) | payer BC, SELFPAY ==
[2024-01-18 14:09] LABS: MANUAL DIFF FLAG NO
[2024-01-18 14:14] LABS: Appearance Urine Clear; Color Urine Yellow; Glucose Urine UA Negative (Negative); Leukocyte Esterase Urine Negative (Negative); Nitrite Urine Negative (Negative); PH 5.5 (5.0-9.0); Specific Gravity - Urine 1.025 (1.005-1.025); UMIC TRIGGER UA YES; Urine Blood Trace (Negative); Urine Ketones Negative (Negative); Urine Protein Negative (Neg-Trace)
[2024-01-18 14:15] LABS: Basophils Absolute Auto 0.1 X10*3/uL (0.0-0.2); Basophils Percent Auto 0.7 % (0-2); Eosinophils Absolute Auto 0.3 X10*3/uL (0.0-0.4); Eosinophils Percent Auto 3.6 % (0-4); Hematocrit 40.3 % (42.0-52.0); Hemoglobin 13.3 g/dl (14.0-18.0); Imm Gran Abs Auto 0.02 X10*3/uL (0.00-0.03); Imm Gran Pct Auto 0.2 % (0.0-0.4); Lymphocytes Absolute Auto 1.9 X10*3/uL (1.2-4.9); Lymphocytes Percent Auto 23.2 % (20-40); Mean Corpuscular Hemoglobin 29.4 pg (27.0-33.0); Mean Corpuscular Volume 89.2 fL (80.0-98.0); Mean Platelet Volume 10.8 fL (9.4-12.4); Monocytes Absolute Auto 0.9 X10*3/uL (0.1-1.2); Monocytes Percent Auto 10.4 % (2-11); Neutrophils Absolute Auto 5.1 x10*3/uL (2.0-8.3); Neutrophils Percent Auto 61.9 % (45-73); Platelet Count 260 X10*3/uL (160-400); Red Blood Count 4.52 X10*6/uL (4.60-5.80); Red Cell Distribution Width 13.2 % (11.0-16.0); White Blood Count 8.2 X10*3/uL (4.8-10.8)
[2024-01-18 14:22] LABS: Bacteria Urine None Seen (None Seen); Hyaline Casts Urine 0-2 /LPF (0-2); Squamous Epithelial Cell Urine 0-2 /HPF (0-2); WBC Urine 0-5 /HPF (0-5)
[2024-01-18 14:24] LABS: Estimated Average Glucose 126 mg/dL
[2024-01-18 14:31] LABS: Alanine Aminotransferase 14 U/L (0-40); Alkaline Phosphatase 78 U/L (39-117); Anion Gap 10 (12-20); Aspartate Amino Transferase 16 U/L (5-37); Bilirubin Total 0.6 mg/dL (0.0-1.0); Blood Urea Nitrogen 21 mg/dL (9-16); Calcium 9.8 mg/dL (8.4-10.2); Carbon Dioxide 28 mmol/L (22-29); Chloride 105 mmol/L (96-108); Cholesterol 139 mg/dL (<200); Estimated Glomerular Filt Rate > 60; Glucose Fasting 120 mg/dL (60-99); HDL Cholesterol 44 mg/dL (>40); LDL Cholesterol Calculated 81 mg/dL (<100); Potassium 4.3 mmol/L (3.3-5.1); Sodium 139 mmol/L (135-145); Total Protein 8.1 g/dL (6.5-8.0); Triglycerides 70 mg/dL (<150)
[2024-01-18 14:32] LABS: B Type Natriuretic Peptide 44 pg/mL (<100)
[2024-01-18 14:49] LABS: TSH reflex Free T4 1.78 uIU/mL (0.32-4.0)
[2024-01-18 14:50] LABS: Prostate Specific Antigen Scr 3.31 ng/mL (<0.05-4.0)
[2024-01-18 14:55] LABS: Creatinine Urine 194.43 mg/dL; Microalbum/Creatinine Ratio Ur 13.8 ug/mg cr (<30)
== END 2024-01-18 11:55 | disposition home or self-care (01) ==
LOC: HO.WFDLDS 11:54
PROVIDERS: Visit Provider Family Medicine
DX: Z00.00 Encounter for general adult medical examination without abnormal findings (principal); Z12.5 Encounter for screening for malignant neoplasm of prostate; R73.01 Impaired fasting glucose; I11.0 Hypertensive heart disease with heart failure; I50.9 Heart failure, unspecified
CPT/HCPCS: 36415; 80053; 80061; 81001; 82043; 82570; 83036; 83880; 84153; 84443; 85025

== ENCOUNTER 2024-01-25 13:55 | Outpatient (AMB) | payer BC, SELFPAY ==
--- NOTE | 2024-01-25 13:56 | MHC.OFFVIS ---
Intake Vital Signs 01/25/24 14:01 Height 5 ft 9 in Weight 326 lb BMI 48.1 BP 200/100 H Blood Pressure Location Lt brachial Position Sitting Pulse 88 Intake Visit Reasons: Umbilical hernia Intake Note: Patient referred by PCP Dr. Turner for Umbilical hernia. Present for 20yrs. Patient c/o: denies pain, discomfort. 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 It has tremendously increased in size and become more symptomatic. Patient has been dealing with this with them abdominal binder but presents here for further evaluation. He is otherwise tolerating a diet. He is having regular bowel habits. He will occasionally manually reduce the hernia when it is symptomatic. Chart was reviewed and patient evaluated [facility] Medical History Umbilical hernia Lymphedema Varicose veins of left lower extremity with inflammation PAD (peripheral artery disease) Essential hypertension Obesity Chronic venous stasis Hypertension Surgical History History of nasal surgery Hx of tonsillectomy Family History Mother High blood pressure Diabetes Father Diabetes High blood pressure Paternal Grandmother Thyroid disorder Maternal Grandfather Diabetes Paternal Grandfather Cancer Family/Other High blood pressure Diabetes Social History Household Members: Spouse Housing: Apartment Do you presently have visiting nurse or other home services: No Patient Tobacco Use Status: Never used Tobacco e-Cigarette/Vaping Use: Never Used service: No Current occupational status: employed 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 Patient has a massive proximally 10 cm umbilical protrusion with an underlying incarcerated hernia measuring approximately 5-6 cm. Very corpulent abdomen. Remainder abdominal exam benign. Groin exam negative. Genitalia within normal limits. Assessment & Plan Assessment & Plan (1) Incarcerated umbilical hernia: Code(s): K42.0 - Umbilical hernia with obstruction, without gangrene Plan Risks, benefits, alternatives of massive incarcerated umbilical hernia repair reviewed the patient included but not limited to bleeding, infection, recurrence, numbness, pain, scarring, bowel injury/leak and the patient wishes to proceed. I explained to him that he will need to be avoiding strenuous activities and heavy lifting for a few weeks after. All questions answered. Arrangements were made for this. Coding Level of Care Code New Pt Level 5 (87597) Diagnoses Incarcerated umbilical hernia K42.0
[2024-01-25 14:01] VITALS: BP 200/100; PULSE 88; BMI 48.1
== END 2024-01-25 14:29 | disposition home or self-care (01) ==
PROVIDERS: PCP Family Medicine; Referring Provider Nurse Practitioner Family; Visit Provider Surgery
DX: K42.0 Umbilical hernia with obstruction, without gangrene (principal)
CPT/HCPCS: 99204

== ENCOUNTER → 2024-01-25 13:55 | Outpatient (BNVA) | payer BC, SELFPAY | PROVIDERS: PCP Family Medicine; Referring Provider Nurse Practitioner Family; Visit Provider Surgery ==

== ENCOUNTER 2024-02-08 09:48 | Outpatient (AMB) | payer BC, SELFPAY ==
[2024-02-08 09:57] VITALS: BMI 48.1
--- NOTE | 2024-02-08 09:57 | A.OFFVIS_ITS ---
Intake Vital Signs 02/08/24 09:57 Height 5 ft 9 in Weight 326 lb BMI 48.1 Intake Visit Reasons: hosp follow up VV w/ cellulitis Intake Note: ED follow up for LE swelling w/ weeping. Bilateral LEcellulitis, Left LE worse than Right LE. Started over 20 years ago, was scheduled w/ at [facility], did not have time to take off. Accompanied by: Self / Same As Patient Allergies amlodipine [AMLODIPINE] Allergy (Intermediate, Verified 02/08/24 10:12) MUSCLE WEAKNESS, muscle aches, muscle aches lisinopril [LISINOPRIL] Allergy (Mild, Verified 02/08/24 10:12) COUGH valsartan Allergy (Verified 02/08/24 10:12) Muscle cramps HPI hosp follow up VV w/ cellulitis HPI Details Complex 63-year-old gentleman presents for follow-up regarding venous insufficiency. He would actually seen my associate Dr. Becker several years prior and was scheduled for venous ablation. He was unable to do so due to work issues. Most recently he presented to the emergency room with left lower extremity cellulitis. This was treated with IV antibiotics on December 29 2023 he was subsequently discharged. He reports that he is doing fairly well. Now presents to us for follow-up with continued swelling left more so than right. He does have some drainage. He has difficulty wearing compression socks. [facility] Medical History (Updated 02/08/24 @ 11:20 by Logan Roque MD) Varicose veins of left lower extremity with inflammation Umbilical hernia Lymphedema PAD (peripheral artery disease) Essential hypertension Obesity Chronic venous stasis Hypertension Surgical History History of nasal surgery Hx of tonsillectomy Family History Mother High blood pressure Diabetes Father Diabetes High blood pressure Paternal Grandmother Thyroid disorder Maternal Grandfather Diabetes Paternal Grandfather Cancer Family/Other High blood pressure Diabetes Social History Household Members: Spouse Housing: Apartment Do you presently have visiting nurse or other home services: No Patient Tobacco Use Status: Never used Tobacco e-Cigarette/Vaping Use: Never Used service: No Current occupational status: employed 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 Cognitive needs: No Hearing needs: No Vision needs: No Review of Systems Const Reports as per HPI ENT Reports no additional complaints Card Denies chest pain, Denies chest pain at rest and Denies chest pain with activity Resp Denies chest congestion and Denies cough GI Reports no additional complaints Musc Details: pain over varicosities, aching of lower extremities, swelling, cramping, heaviness and tiredness, itching Denies abnormal gait Skin/Breast Reports pruritus and Denies wounds Neuro Reports no additional complaints and Denies abnormal gait Psych Denies no additional complaints Physical Exam Vital Signs: BMI result Body Mass Index 48.1 Const General: cooperative, healthy appearing and comfortable Orientation/consciousness: oriented to person, oriented to place and oriented to time Neck Carotids: no bruits Chest Chest palpation & inspection: normal inspection of the chest and normal palpation of entire chest wall Resp Effort & Inspection: normal respiratory effort and able to speak in complete sentences Cardio Rate: regular rate Heart sounds: S1 normal heart sound present and S2 normal heart sound present Peripheral pulses: Peripheral pulses 2+ throughout GI Inspection: Yes normal to inspection Skin Other: +2 edema, open wounds left more so than right CEAP Classification C6 - open ulceration Ep - Etiology Primary As - superficial veins P - reflux General skin exam: dry skin Neuro General: oriented to person, oriented to place and oriented to time Extrem Right lower extremity: full ROM, normal capillary refill and edema Left lower extremity: full ROM, normal capillary refill and edema Psych Mental Status: mental status grossly normal Assessment & Plan Assessment & Plan (1) Varicose veins of left lower extremity with inflammation: Code(s): I83.12 - Varicose veins of left lower extremity with inflammation Plan: In short patient has clear evidence of venous insufficiency. He actually has open ulcers that are weeping. He did have prior testing that was positive for reflux. It has been so long ago that we will repeat the testing. We did discuss conservative measures including compression elevation and exercise. We also did discuss the time line should treatment be required and he will be required to take about a week off after the procedure. 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 We will discuss options upon return and will be able to better inform him of what treatments are possible for him based on ultrasound. Thank you for allowing us to assist in his care. If there are any questions or concerns please do not hesitate to contact us. Orders: Orders US venous insuf bilat 1 Week Coding Level of Care Code Est Pt Level 4 (00246) Diagnoses Varicose veins of left lower extremity with inflammation I83.12
== END 2024-02-08 10:52 | disposition home or self-care (01) ==
PROVIDERS: PCP Family Medicine; Visit Provider Surgery Vascular Surgery
DX: I83.12 Varicose veins of left lower extremity with inflammation (principal)
CPT/HCPCS: 99213

== ENCOUNTER → 2024-02-08 09:48 | Outpatient (BNVA) | payer BC, SELFPAY | PROVIDERS: PCP Family Medicine; Visit Provider Surgery Vascular Surgery ==

== ENCOUNTER 2024-02-21 14:13 | Outpatient (AMB) | payer BC, SELFPAY ==
--- NOTE | 2024-02-21 14:15 | A.OFFPC_ITS ---
Vital Signs 02/21/24 14:19 Height 5 ft 9 in Weight 329 lb 2 oz BMI 48.6 BP 148/88 H Blood Pressure Location Lt brachial Position Sitting Pulse 78 Pulse Source Pulse Oximeter Pulse Oximetry (%) 97 Oxygen Delivery Method Room Air Intake Visit Reasons: CPE Follow up labs Intake Note: Patient is here for his physical today. Allergies amlodipine [AMLODIPINE] Allergy (Intermediate, Verified 02/08/24 10:12) MUSCLE WEAKNESS, muscle aches, muscle aches doxazosin Allergy (Mild, Verified 02/21/24 14:35) muscle and joint pain hydrochlorothiazide [From Dutoprol] Allergy (Mild, Verified 02/21/24 14:35) joint and muscle pain lisinopril [LISINOPRIL] Allergy (Mild, Verified 02/08/24 10:12) COUGH metoprolol [From Dutoprol] Allergy (Mild, Verified 02/21/24 14:35) joint and muscle pain valsartan Allergy (Verified 02/08/24 10:12) Muscle cramps atenolol Adverse Reaction (Mild, Verified 02/21/24 14:35) muscle and joint pain chlorthalidone Adverse Reaction (Mild, Verified 02/21/24 14:35) muscle pain losartan Adverse Reaction (Mild, Verified 02/21/24 14:35) muscle pain all over body olmesartan [From Benicar] Adverse Reaction (Mild, Verified 02/21/24 14:35) joint and muscle pain candesartan and celexetil Adverse Reaction (Mild, Uncoded 02/21/24 14:35) muscle pain over all of body Medication List - Last Reconciled 02/21/24 by Jack Turner MD ammonium lactate 12% 1 appl See Protocol topical BID aspirin 81 mg PO DAILY bismuth tribrom-petrolatum,wh 5 X 9 (Xeroform Petrolatum Dressing) As directed furosemide 40 mg PO DAILY Tobacco use date assessed: 02/21/24 Fall risk assessment: No Falls in past year Last assessed Fall Risk: 02/21/24 Dental Screening Dental Screen Date: 01/12/24 HPI CPE Follow up labs HPI Details 63 y/o male presents for a CPE with f/u labs and health maintenance. Labs were drawn 01/18/24. Reviewed labs with pt. Ongoing mild anemia, improving. Elevated fasting glucose of 120 and A1c 6.0% - pre-diabetes range. Triglycerides 70. TC 139. LDL 81. HDL 44. Blood pressure today 148/88, 78p. He notes his blood pressure meds of candesartan-hydrochlorothiazide had been causing him problems. He states he is able to tolerate hydrochlorothiazide but not candesartan. HPI Comments History of Present Illness Details Documentation assistance for Jack Turner MD, was provided by Brandin Mccoy,? General Teller on 02/21/2024 2:45 PM EST. I, Dr. Turner, have read, observed, and verified documentation. [facility] Medical History (Updated 02/21/24 @ 15:06 by Brandin Mccoy) Umbilical hernia Varicose veins of left lower extremity with inflammation Lymphedema PAD (peripheral artery disease) Essential hypertension Obesity Chronic venous stasis Hypertension Surgical History History of nasal surgery Hx of tonsillectomy Family History Mother High blood pressure Diabetes Father Diabetes High blood pressure Paternal Grandmother Thyroid disorder Maternal Grandfather Diabetes Paternal Grandfather Cancer Family/Other High blood pressure Diabetes Social History Household Members: Spouse Housing: Apartment Do you presently have visiting nurse or other home services: No Patient Tobacco Use Status: Never used Tobacco e-Cigarette/Vaping Use: Never Used service: No Current occupational status: employed 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 Curtis Montes, Jocelynn Jefferson, Moshe Ochoa and colleagues, with an educational sher from [employer]. Review of Systems Const Denies chills, Denies fatigue, Denies fever(s), Denies headache(s) and Denies weakness Eyes Denies change in vision ENT Denies dizziness, Denies headache(s), Denies hearing loss, Denies nasal congestion, Denies sinus pain, Denies sinus pressure and Denies sore throat Card Denies chest pain, Denies lightheadedness, Denies dyspnea and Denies other (palpitations) Resp Denies cough, Denies dyspnea and Denies wheezing GI Denies abdominal pain, Denies melena, Denies hematochezia, Denies change in bowel habits, Denies dyspepsia and Denies nausea Denies hematuria and Denies dysuria Musc Denies abnormal gait, Denies myalgias, Denies arthralgias, Denies numbness and Denies tingling Skin/Breast Denies rash, Denies unusual bruising and Denies wounds Neuro Denies abnormal gait, Denies dizziness, Denies headache(s), Denies memory loss, Denies numbness, Denies Sensory deficit (Neuro), Denies tingling and Denies weakness Psych Denies anxiety, Denies depression and Denies memory loss Endo Denies cold intolerance, Denies fatigue, Denies heat intolerance, Denies polydipsia and Denies polyuria Pablo/Lymph Denies easy bleeding and Denies easy bruising Aller/Immun Denies wheezing Physical exam (Primary Care) BMI result Body Mass Index 48.6 Tobacco/Smoking Status: Tobacco use Status Tobacco use date assessed 01/17/24 02/21/24 14:18 Patient Tobacco Use Status Never used Tobacco 02/21/24 14:18 e-Cigarette/Vaping Use Never Used 02/21/24 14:18 Thrive Assessment: Date of Thrive Assessment Date Thrive assessed 12/29/23 02/21/24 14:18 Const General: no acute distress, well developed, alert and awake Nutritional Appearance: obese morbidly obese Orientation/consciousness: patient oriented x3 HENMT Head: Yes normocephalic and Yes atraumatic Ears: hearing grossly normal bilaterally and TM's normal bilaterally General nose exam: Normal external nose present and Normal nares present Mouth: Normal oral and palatal mucosa present and moist mucous membranes Teeth and gingiva: dentition normal Throat: Yes posterior oropharynx normal Eyes General: appearance normal, both eyes and all related structures Pupils: Equal, round and reactive pupils present and Pupil accommodation reflex normal EOM: EOMs intact bilaterally Neck Neck: Yes normal visual inspection, Yes no lymphadenopathy and Yes trachea midline Thyroid: Thyroid normal Carotids: no bruits Lymphatic: no lymphadenopathy noted Chest Chest palpation & inspection: normal inspection of the chest Resp Effort & Inspection: normal respiratory effort Auscultation: clear to auscultation bilaterally Cardio Rate: regular rate Rhythm: regular rhythm Heart sounds: S1 normal heart sound present, S2 normal heart sound present, no gallops, no murmurs and no rubs Bruits: no abdominal aortic bruits and no carotid bruits GI Palpation (GI): No Abdominal aortic bruit present, Soft to palpation, nontender, No hepatosplenomegaly present and No Rebound tenderness present Auscultation: normal bowel sounds General: Yes no CVA tenderness Back/Spine/Pelvis Back: no CVA tenderness Cervical Spine: cervical ROM normal and No Cervical spine tenderness Thoracic/Lumbar Spine: thoraco-lumbar ROM normal, No pain with thoraco-lumbar ROM, No thoracic spinal tenderness and No lumbar spinal tenderness Skin Lesions: no lesions Rashes: no rashes Trauma: no lacerations or abrasions Wounds: no wounds Nails: normal Neuro General: patient oriented x3 Cranial nerves: Yes Equal, round and reactive pupils present Cognition (Neuro): normal cognition Gait exam (Neuro): Normal gait present Motor exam (neuro): 5/5 motor strength present throughout Sensory Exam: No Sensory deficit (Neuro) Deep tendon reflexes (DTR's): Right patellar reflex intensity grade: 2+ and Left patellar reflex intensity grade: 2+ Extrem General: Yes normal to inspection and No edema Psych Appearance: grossly normal Affect: normal affect Attitude: cooperative Thought process: Normal thought process present Assessment and Plan Assessment & Plan (1) Adult general medical exam: Code(s): Z00.00 - Encounter for general adult medical examination without abnormal findings Plan: 63-year-old?male?presents?for?complete?physical?exam Encouraged?healthy?diabetic?diet?with?active?lifestyle?and?plenty?of?exercise (2) Mild anemia: Code(s): D64.9 - Anemia, unspecified Plan: Will?recheck?CBC (3) Essential hypertension: Code(s): I10 - Essential (primary) hypertension Plan: Blood?pressures?have?been?significantly?elevated Did?not?tolerate?candesartan-hydrochlorothiazide Trial?hydrochlorothiazide?50?mg?daily - he?can?divide?this?as?25?mg?b.i.d. Call?for?any?problems Avoid?salt/sodium Will?give?him?a?script?for?a?blood?pressure?monitor (4) Severe obesity (BMI >= 40): Comment: Lifestyle mild encouraged Code(s): E66.01 - Morbid (severe) obesity due to excess calories Plan: Patient?with?elevated?blood?sugars,?severe?obesity?and?also?history?of?CHF Trial?Ozempic May?need?prior?authorization (5) Pre-diabetes: Code(s): R73.03 - Prediabetes Plan: Diabetic?diet As?above,?trial?Ozempic (6) Umbilical hernia: Code(s): K42.9 - Umbilical hernia without obstruction or gangrene Qualifiers: Obstruction and gangrene presence: without obstruction or gangrene Qualified Code(s): K42.9 - Umbilical hernia without obstruction or gangrene Plan: Large?umbilical?hernia Patient?has?declined?surgical?intervention?at?this?time Using?a?binder Discussed?S/S?of?emergency (7) CHF (congestive heart failure): Code(s): I50.9 - Heart failure, unspecified Qualifiers: Heart failure chronicity: chronic Heart failure type: systolic Qualified Code(s): I50.22 - Chronic systolic (congestive) heart failure Plan: Avoid?salt/sodium Control?blood?pressure Follow-up?with?Cardiology (8) MDD (major depressive disorder), recurrent episode: Comment: Not currently on any medications. Not active with a counselor at this time. Was active with a counselor in the past. Did not find this to be helpful. Relates his depression to his medical conditions. Code(s): F33.9 - Major depressive disorder, recurrent, unspecified Qualifiers: Major depression episode severity: mild Qualified Code(s): F33.0 - Major depressive disorder, recurrent, mild Plan: Will?follow?at?next?visit (9) Venous stasis ulcer limited to breakdown of skin with varicose veins: Comment: Referral placed to [facility] per his request. I have also ordered a Xeroform gauze which should be applied to the ulcers of both legs followed by gauze and gentle compression with an Jerson wrap. Jerson wrap was provided to him today along with education on how to use. He reports that he has compression stockings at home however this edema in bilateral lower extremities is greater than it was when he initially started using these. Advised him to avoid using these at this time. Elevate legs as much as possible. Continue to use ammonium lactate to the intact skin. Code(s): I83.009 - Varicose veins of unspecified lower extremity with ulcer of unspecified site; L97.901 - Non-pressure chronic ulcer of unspecified part of unspecified lower leg limited to breakdown of skin Qualifiers: Laterality: left Venous stasis ulcer site: other part of lower leg Qualified Code(s): I83.028 - Varicose veins of left lower extremity with ulcer other part of lower leg; L97.821 - Non-pressure chronic ulcer of other part of left lower leg limited to breakdown of skin Plan: Treat?venous?insufficiency Follow-up?with? (10) Venous insufficiency: Code(s): I87.2 - Venous insufficiency (chronic) (peripheral) Plan: Elevate?leg Compression?as?tolerated Follow-up?with? Diuretics Avoid?salt/sodium (11) Umbilical hernia without obstruction and without gangrene: Comment: General surgery referral placed per his request. Code(s): K42.9 - Umbilical hernia without obstruction or gangrene Plan: As?above (12) Screening for prostate cancer: Code(s): Z12.5 - Encounter for screening for malignant neoplasm of prostate Plan: PSA at upper limits of normal Will?recheck?with?next?set?of?lab (13) Screening for colon cancer: Code(s): Z12.11 - Encounter for screening for malignant neoplasm of colon Plan: Overdue?for?follow-up?as?he?was?due?for?follow-up?in?2020 He?wants?to?hold?off?until?leg?swelling?and?venous?stasis?ulcers?are?resolved Will?continue?to?address?with?patient Orders: Orders Complete Blood Count Auto Diff Today D64.9 - Anemia, unspecified, Z00.00 - Encounter for general adult medical examination without abnormal findings IRON PROFILE Today D64.9 - Anemia, unspecified Vitamin B12 and Folate Today D64.9 - Anemia, unspecified, E53.8 - Deficiency of other specified B group vitamins Prostate Specific Antigen Scr Today Z12.5 - Encounter for screening for malignant neoplasm of prostate Reticulocyte Count Today D64.9 - Anemia, unspecified Medications: New blood pressure monitor Automatic, Digital. Dx: I10. Daily As directed, 999 days/lifetime. Cuff measured to fit. 1 ea 0RF I10 - Essential (primary) hypertension, Z12.5 - Encounter for screening for malignant neoplasm of prostate hydrochlorothiazide Morning and early afternoon. Avoid too close to bedtime. 25 mg PO BID 90 days 180 tabs 1RF semaglutide (Ozempic) for 4 weeks 0.25 mg (0.368 mL) subcut QWEEK 28 days 1.472 mL 2RF E66.01 - Morbid (severe) obesity due to excess calories, I50.22 - Chronic systolic (congestive) heart failure, R73.03 - Prediabetes Changed From furosemide 40 mg PO DAILY To furosemide 40 mg PO DAILY 30 days 30 tabs 2RF Coding Level of Care Code Est Pt Level 4 (57580) Est Pt Prev Care 40-64y(40314) Diagnoses Adult general medical exam Z00.00 Mild anemia D64.9 Essential hypertension I10 Severe obesity (BMI >= 40) E66.01 Pre-diabetes R73.03 Umbilical hernia without obstruction and without gangrene K42.9 Obstruction and gangrene presence: without obstruction or gangrene Chronic systolic congestive heart failure I50.22 Heart failure chronicity: chronic Heart failure type: systolic Mild episode of recurrent major depressive disorder F33.0 Major depression episode severity: mild Venous stasis ulcer of other part of left lower leg limited to breakdown of skin with varicose veins I83.028; L97.821 Laterality: left Venous stasis ulcer site: other part of lower leg Venous insufficiency I87.2 Umbilical hernia without obstruction and without gangrene K42.9 Screening for prostate cancer Z12.5 Screening for colon cancer Z12.11
[2024-02-21 14:19] VITALS: BP 148/88; PULSE 78; O2SAT 97; BMI 48.6
== END 2024-02-21 15:25 | disposition home or self-care (01) ==
PROVIDERS: PCP Family Medicine; Visit Provider Family Medicine
DX: D64.9 Anemia, unspecified (principal); E66.01 Morbid (severe) obesity due to excess calories; I50.22 Chronic systolic (congestive) heart failure; Z68.42 Body mass index [BMI] 45.0-49.9, adult; F33.0 Major depressive disorder, recurrent, mild; I83.028 Varicose veins of left lower extremity with ulcer other part of lower leg; I10 Essential (primary) hypertension; L97.821 Non-pressure chronic ulcer of other part of left lower leg limited to breakdown of skin; R73.03 Prediabetes; K42.9 Umbilical hernia without obstruction or gangrene; I87.2 Venous insufficiency (chronic) (peripheral)
CPT/HCPCS: 99214; 99396

== ENCOUNTER 2024-02-22 10:12 | Outpatient (REF) | payer BC, SELFPAY ==
--- NOTE | ~2024-02-22 | US_ITS ---
EXAMINATION: US LOWER EXTREMITY VENOUS (REFLUX EXAM), BILATERAL CLINICAL INFORMATION: Chronic venous insufficiency with lower extremity varicose veins and pain COMPARISON: None. TECHNIQUE: Color flow triplex imaging and compression Doppler was performed to evaluate both the deep and the superficial systems bilaterally. To evaluate the superficial system, the examination was performed in the upright position. Color-flow Doppler ultrasound and compression ultrasound were utilized. In addition, maneuvers were utilized to demonstrate reflux. FINDINGS: 1. DEEP VENOUS ULTRASOUND OF THE RIGHT LOWER EXTREMITY: Common Femoral Vein: Compressible, normal respiratory variation and augmented flow. Femoral Vein: Compressible, normal color flow and augmentation. Popliteal Vein: Compressible, normal augmentation. Deep Reflux: There is no evidence of reflux in the deep system in either the common femoral vein, superficial femoral or the popliteal vein. There is no evidence of a Skelton's cyst. Enlarged lymph node in the right groin measuring 3.7 x 1.2 x 3.2 cm. 2. SUPERFICIAL ULTRASOUND WITH DOPPLER OF RIGHT LOWER EXTREMITY: GREAT SAPHENOUS VEIN: Saphenofemoral Junction: 0.9 cm; Reflux: 928 ms Proximal Thigh: 0.8 cm; Reflux: 0 ms Mid Thigh: 0.5 cm; Reflux: 0 ms Distal Thigh: 0.3 cm; Reflux: 0 ms At Knee: 0.4 cm; Reflux: 2676 ms Proximal Calf: 0.4 cm; Reflux: 2748 ms Mid Calf: 0.3 cm; Reflux: 0 ms Distal Calf: 0.4 cm; Reflux: 2760 ms DUPLICATED MEDIAL GREAT SAPHENOUS VEIN: Diameter: 0.5 cm Reflux: None DUPLICATED LATERAL GREAT SAPHENOUS VEIN: Diameter: None imaged Reflux: NA SMALL SAPHENOUS VEIN: Saphenopopliteal Junction: 0.3 cm; Reflux: 0 ms Mid: 0.7 cm; Reflux: 0 ms Distal: 0.3 cm; Reflux: 0 ms VEIN OF GIACOMINI: Size: NA Reflux: NA PERFORATORS: Location: Mid thigh Size: 0.4 cm Reflux: 624 ms VARICOSITIES: Location: Medial mid to thigh, knee and proximal calf off the great saphenous vein Size: Ranging from 0.4 to 0.7 cm Reflux: Ranging from 1808 ms to 2840 ms 3. DEEP VENOUS ULTRASOUND OF THE LEFT LOWER EXTREMITY: Common Femoral Vein: Compressible, normal respiratory variation and augmented flow. Femoral Vein: Compressible, normal color flow and augmentation. Popliteal Vein: Compressible, normal augmentation. Deep Reflux: There is no evidence of reflux in the deep system in either the common femoral vein, superficial femoral or the popliteal vein. There is no evidence of a Skelton's cyst. 4. SUPERFICIAL ULTRASOUND WITH DOPPLER OF LEFT LOWER EXTREMITY: GREAT SAPHENOUS VEIN: Saphenofemoral Junction: 1.2 cm; Reflux: 0 ms Proximal Thigh: 0.6 cm; Reflux: 0 ms Mid Thigh: 0.7 cm; Reflux: 0 ms Distal Thigh: 0.7 cm; Reflux: 0 ms At Knee: 0.5 cm; Reflux: 0 ms Proximal Calf: Not visualized due to edema and fibrotic skin. 0.6 cm; Reflux: 0 ms Mid Calf: 0.8 cm; Reflux: 2900 ms Distal Calf: 0.8 cm; Reflux: 0 ms DUPLICATED MEDIAL GREAT SAPHENOUS VEIN: Diameter: 0.7 cm Reflux: None DUPLICATED LATERAL GREAT SAPHENOUS VEIN: Diameter: None imaged. Reflux: NA SMALL SAPHENOUS VEIN: Saphenopopliteal Junction: 0.5 cm; Reflux: 0 ms Mid: 0.7 cm; Reflux: 0 ms Distal: 0.5 cm; Reflux: 0 ms VEIN OF GIACOMINI: Size: NA Reflux: NA PERFORATORS: Location: None imaged Size: NA Reflux: NA VARICOSITIES: Location: Multiple varicosities in the medial distal thigh and throughout the calf. Size: Ranging from 0.3 to 0.6 cm Reflux: Ranging from 1404 ms to 3116 ms US/US venous insuf bilat IMPRESSION: Right: Reflux in the great saphenous vein as described above. Multiple branching varicosities within the thigh and calf as described above Left: Segmental area of reflux in the great saphenous vein in the mid calf. Extensive refluxing varicose veins are seen throughout the left lower extremity as described above
== END 2024-02-22 10:13 | disposition home or self-care (01) ==
LOC: HO.US 10:12
PROVIDERS: PCP Family Medicine; Visit Provider Surgery Vascular Surgery
DX: I83.893 Varicose veins of bilateral lower extremities with other complications (principal)
CPT/HCPCS: 93970

== ENCOUNTER 2024-03-07 10:48 | Outpatient (AMB) | payer BC, SELFPAY ==
[2024-03-07 10:49] VITALS: BMI 48.1
--- NOTE | 2024-03-07 10:49 | MHC.OFFVIS ---
Vital Signs 03/07/24 10:49 Height 5 ft 9 in Weight 326 lb BMI 48.1 Intake Visit Reasons: f/u s/p US 02/22/2024 Intake Note: follow up 02/22/24 for bilateral LE swelling, pain. Has bilateral cellulitis w/ weeping, Left is worse than Right LE. Accompanied by: Self / Same As Patient Allergies amlodipine [AMLODIPINE] Allergy (Intermediate, Verified 03/07/24 10:55) MUSCLE WEAKNESS, muscle aches, muscle aches doxazosin Allergy (Mild, Verified 03/07/24 10:55) muscle and joint pain hydrochlorothiazide [From Dutoprol] Allergy (Mild, Verified 03/07/24 10:55) joint and muscle pain lisinopril [LISINOPRIL] Allergy (Mild, Verified 03/07/24 10:55) COUGH metoprolol [From Dutoprol] Allergy (Mild, Verified 03/07/24 10:55) joint and muscle pain valsartan Allergy (Verified 03/07/24 10:55) Muscle cramps atenolol Adverse Reaction (Mild, Verified 03/07/24 10:55) muscle and joint pain chlorthalidone Adverse Reaction (Mild, Verified 03/07/24 10:55) muscle pain losartan Adverse Reaction (Mild, Verified 03/07/24 10:55) muscle pain all over body olmesartan [From Benicar] Adverse Reaction (Mild, Verified 03/07/24 10:55) joint and muscle pain candesartan and celexetil Adverse Reaction (Mild, Uncoded 03/07/24 10:55) muscle pain over all of body HPI HPI f/u s/p 02/22/2024: Details: Very complex 63-year-old gentleman presents for follow-up regarding venous insufficiency. He has significantly swollen legs left greater than right. He has skin breakdown with serous fluid drainage. He now presents for follow-up with venous insufficiency testing. [facility] Medical History (Updated 03/07/24 @ 12:21 by Logan Roque MD) Lymphedema Umbilical hernia Varicose veins of left lower extremity with inflammation PAD (peripheral artery disease) Essential hypertension Obesity Chronic venous stasis Hypertension Surgical History History of nasal surgery Hx of tonsillectomy Family History Mother High blood pressure Diabetes Father Diabetes High blood pressure Paternal Grandmother Thyroid disorder Maternal Grandfather Diabetes Paternal Grandfather Cancer Family/Other High blood pressure Diabetes Social History Household Members: Spouse Housing: Apartment Do you presently have visiting nurse or other home services: No Patient Tobacco Use Status: Never used Tobacco e-Cigarette/Vaping Use: Never Used service: No Current occupational status: employed 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 Cognitive needs: No Hearing needs: No Vision needs: No Review of Systems Const Reports as per HPI ENT Reports no additional complaints Card Denies chest pain, Denies chest pain at rest and Denies chest pain with activity Resp Denies chest congestion and Denies cough GI Reports no additional complaints Musc Details: pain over varicosities, aching of lower extremities, swelling, cramping, heaviness and tiredness, itching Denies abnormal gait Skin/Breast Reports pruritus and Denies wounds Neuro Reports no additional complaints and Denies abnormal gait Psych Denies no additional complaints Physical Exam Vital Signs: BMI result Body Mass Index 48.1 Const General: cooperative, healthy appearing and comfortable Orientation/consciousness: oriented to person, oriented to place and oriented to time Neck Carotids: no bruits Chest Chest palpation & inspection: normal inspection of the chest and normal palpation of entire chest wall Resp Effort & Inspection: normal respiratory effort and able to speak in complete sentences Cardio Rate: regular rate Heart sounds: S1 normal heart sound present and S2 normal heart sound present Peripheral pulses: Peripheral pulses 2+ throughout GI Inspection: Yes normal to inspection Skin Other: +2 edema, hyperkeratosis with excoriated skin with serous drainage CEAP Classification C6 - active ulcers Ep - Etiology Primary As - superficial veins P - reflux General skin exam: dry skin Neuro General: oriented to person, oriented to place and oriented to time Extrem Other: Right in cm: Thigh 65 Knee 61 Calf 60.5 Ankle 40 Left in cm: Thigh 66.5 Knee 55 Calf 50.5 Ankle 34 Hip/waist 133 Right lower extremity: full ROM, normal capillary refill and edema Left lower extremity: full ROM, normal capillary refill and edema Psych Mental Status: mental status grossly normal Results Reviewed Results Reviewed: Brief summary of venous insufficiency testing is as follows: right great saphenous vein: Positive right small saphenous vein: negative right accessory vein: none present left great saphenous vein: negative left small saphenous vein: negative left accessory vein: Present and positive Please note there is no evidence of any venous aneurysms or significant tortuosity Assessment & Plan Assessment & Plan (1) Varicose veins of left lower extremity with inflammation: Code(s): I83.12 - Varicose veins of left lower extremity with inflammation Category: Medical Plan: This patient has varicose veins with inflammation. They continue to be a source of discomfort for the patient. The patient has tried conservative treatment with compression, leg elevation and exercise program for over 3 months time. They have been compliant with all treatment. This has provided minimal relief for the patient. I do not anticipate this course of treatment will alter the underlying etiology. The patient has been scheduled for lower extremity venous treatment inclusive of --- left accessory great saphenous vein radiofrequency ablation. Risks, benefits, and complications of this procedure has been discussed in detail with the patient including but not limited to bleeding, infection, and the development of a DVT. The patient has demonstrated a clear understanding and has consented. We will schedule the patient as soon as possible. Thank you for allowing us to participate in this patient's care. If there are any questions or concerns please do not hesitate to contact us. (2) Lymphedema: Code(s): I89.0 - Lymphedema, not elsewhere classified Category: Medical Plan: In short the patient has late on sent lymphedema. The patient has been on conservative treatment for at least 3 months with minimal relief. Patient has tried 30 mm of mercury compression garments, elevation, exercise healthy diet and doing manual says self MLD to the best of their ability for over 4 weeks but with no significant relief. She has been compliant with the program but has provided minimal relief. In addition on physical we are noticing hyperpigmentation, lymphorrhea, and hyperplasia. It appears that she has stage 2 lymphedema. Patient has completed multiple forms of conservative therapy yet significant symptoms remain. Patient requires the use of a pneumatic compression device which we will assist in trying to have the patient obtain them. We will treat his venous disease 1st and then pursue the lymphedema compression pumps. Thank you for allowing us to assist in his care Coding Level of Care Code Est Pt Level 4 (24618) Diagnoses Varicose veins of left lower extremity with inflammation I83.12 Lymphedema I89.0
== END 2024-03-07 11:17 | disposition home or self-care (01) ==
PROVIDERS: PCP Family Medicine; Visit Provider Surgery Vascular Surgery
DX: I83.12 Varicose veins of left lower extremity with inflammation (principal); I89.0 Lymphedema, not elsewhere classified
CPT/HCPCS: 99214

== ENCOUNTER → 2024-03-07 10:48 | Outpatient (BNVA) | payer BC, SELFPAY | PROVIDERS: PCP Family Medicine; Visit Provider Surgery Vascular Surgery ==

== ENCOUNTER 2024-03-31 10:13 | Outpatient (AMB) | payer BC, SELFPAY ==
--- NOTE | 2024-03-31 10:33 | A.OFFVIS_ITS ---
Intake Visit Reasons: Left GSV RFA Accompanied by: Self / Same As Patient Allergies amlodipine [AMLODIPINE] Allergy (Intermediate, Verified 03/31/24 10:33) MUSCLE WEAKNESS, muscle aches, muscle aches doxazosin Allergy (Mild, Verified 03/31/24 10:33) muscle and joint pain hydrochlorothiazide [From Dutoprol] Allergy (Mild, Verified 03/31/24 10:33) joint and muscle pain lisinopril [LISINOPRIL] Allergy (Mild, Verified 03/31/24 10:33) COUGH metoprolol [From Dutoprol] Allergy (Mild, Verified 03/31/24 10:33) joint and muscle pain valsartan Allergy (Verified 03/31/24 10:33) Muscle cramps atenolol Adverse Reaction (Mild, Verified 03/31/24 10:33) muscle and joint pain chlorthalidone Adverse Reaction (Mild, Verified 03/31/24 10:33) muscle pain losartan Adverse Reaction (Mild, Verified 03/31/24 10:33) muscle pain all over body olmesartan [From Benicar] Adverse Reaction (Mild, Verified 03/31/24 10:33) joint and muscle pain candesartan and celexetil Adverse Reaction (Mild, Uncoded 03/07/24 10:55) muscle pain over all of body [facility] Medical History Lymphedema Umbilical hernia Varicose veins of left lower extremity with inflammation PAD (peripheral artery disease) Essential hypertension Obesity Chronic venous stasis Hypertension Surgical History History of nasal surgery Hx of tonsillectomy Family History Mother High blood pressure Diabetes Father Diabetes High blood pressure Paternal Grandmother Thyroid disorder Maternal Grandfather Diabetes Paternal Grandfather Cancer Family/Other High blood pressure Diabetes Social History Household Members: Spouse Housing: Apartment Do you presently have visiting nurse or other home services: No Patient Tobacco Use Status: Never used Tobacco e-Cigarette/Vaping Use: Never Used service: No Current occupational status: employed 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 Anesthesia: Local infiltration 5 cc, Tumescent 400 cc. Estimated Blood Loss: minimal Specimen: Varicose veins The patient was transferred to the procedure suite and the insufficient saphenous vein was mapped by ultrasound and diagrammed on the overlying skin. The depth and diameter of the vein(s) to be treated was documented. The varicose tributary veins and suitable access sites were identified and mapped as well. The patient was then positioned supine on the procedure table. The affected limb was prepped and draped in the usual sterile fashion. The RF catheter was placed on the sterile field, flushed and wiped down, prepared, and connected by a sterile cable. The patient was placed in supine position and local anesthesia was instilled in the skin overlying the access site. A skin incision was made overlying the identified and mapped great saphenous vein entry site. The vein was accessed using ultrasound guidance and the Seldinger technique, a guide wire was introduced through the needle, which was then exchanged over the guide wire for a 6F sheath, which was secured in place. The guide wire was removed and the sheath was flushed. The RF catheter was placed into the vein through the sheath and preferentially, imaging was used to place the catheter tip just inferior to the superficial epigastric vein to preserve normal physiological flow in that vein. Additionally, it was confirmed by ultrasound guidance that the catheter tip was also placed a minimum of 1.5cm distal to the saphenofemoral junction. After the RF catheter position was verified by ultrasound, tumescent anesthesia was infiltrated, under ultrasound guidance, precisely into the perivenous compartment along the entire length of vein from the entry site to the saphenofemoral junction until a halo of fluid was noted around the vein. The patient was then placed in supine position to further exsanguinate the superficial venous system. After RF catheter position was again confirmed with ultrasound imaging, and under direct external compression along the length of the heating element, RF energy was applied. The vein was segmentally ablated by heating a 8 cm segment and then indexing the catheter forward by 7.5 cm until the treatment length is completed. Device temperature was maintained at 120 plus or minus 5 degrees C with an initial power level of 40W dropping to below 20W for each treatment. Total vein length treated 30 cm Total cycles of RF 6. Repeat ultrasound of the saphenous vein was performed, confirming successful treatment. The catheter and sheath were withdrawn and hemostasis established with direct pressure. After assuring hemostasis, the skin incision over the saphenous vein was closed with a bandage and a compression wrap, and/ or graduated compression stocking was applied from the level of the foot to the most proximal level of the thigh. 25523 - Endovenous RF, 1st Vein All charges added?: Procedure code (CPT) selection complete Assessment & Plan Assessment & Plan (1) Varicose veins of left lower extremity with inflammation: Comment: 04/03/2024 - left great saphenous vein radiofrequency ablation Code(s): I83.12 - Varicose veins of left lower extremity with inflammation Category: Medical Plan: See op note Coding Level of Care Code Procedure Only Diagnoses Varicose veins of left lower extremity with inflammation I83.12 CPT Codes Details - Vascular 1: 43710 - Endovenous RF, 1st Vein ([id number])
== END 2024-03-31 11:34 | disposition home or self-care (01) ==
PROVIDERS: PCP Family Medicine; Visit Provider Surgery Vascular Surgery
DX: I83.12 Varicose veins of left lower extremity with inflammation (principal)
CPT/HCPCS: 36475

== ENCOUNTER → 2024-03-31 10:13 | Outpatient (BNVA) | payer BC, SELFPAY | PROVIDERS: PCP Family Medicine; Visit Provider Surgery Vascular Surgery | DX: I83.12 Varicose veins of left lower extremity with inflammation (principal) | CPT/HCPCS: 36475 ==

== ENCOUNTER 2024-04-04 10:15 | Outpatient (REF) | payer BC, SELFPAY ==
--- NOTE | ~2024-04-04 | US_ITS ---
EXAMINATION: TRIPLEX SCANNING OF LEFT LOWER EXTREMITY; SUPERFICIAL ULTRASOUND WITH DOPPLER OF LEFT LOWER EXTREMITY CLINICAL INFORMATION: Status post RF ablation of the left great saphenous vein and originally performed 4 days ago. COMPARISON: Preprocedure studies. TECHNIQUE: Color flow triplex imaging and compression Doppler were performed as well as superficial ultrasound with Doppler. FINDINGS: TRIPLEX SCANNING OF LEFT LOWER EXTREMITY: Respiratory variation, normal compression and augmented flow are noted throughout the lower extremity. The visualized common femoral vein, femoral vein, profunda femoral vein, popliteal vein and the calf veins show no evidence of deep venous thrombosis. There is no evidence of Skelton's cyst. SUPERFICIAL ULTRASOUND WITH DOPPLER OF LEFT LOWER EXTREMITY: The left great saphenous vein is occluded from the access site to 8.3 cm before the saphenofemoral junction. There is no extension of thrombus into the deep system. Additional findings: Prominent lymph node seen in the anterior thigh measuring 5.3 x 2.2 x 4.1 cm and in the left popliteal fossa measuring 2.1 x 1.6 x 3.8 cm. US/US venous duplex LE IMPRESSION: 1. Normal triplex scan of the left without evidence of deep venous thrombosis. 2. Excellent appearance status post ablation of the left great saphenous vein. 3. Incidental note made of enlarged lymph nodes in the anterior thigh and popliteal fossa.
== END 2024-04-04 10:16 | disposition home or self-care (01) ==
LOC: HO.US 10:15
PROVIDERS: PCP Family Medicine; Visit Provider Surgery Vascular Surgery
DX: M79.605 Pain in left leg (principal)
CPT/HCPCS: 93971

== ENCOUNTER 2024-04-11 10:51 | Outpatient (AMB) | payer BC, SELFPAY ==
[2024-04-11 11:19] VITALS: BMI 48.1
--- NOTE | 2024-04-11 11:19 | MHC.OFFVIS ---
Vital Signs 04/11/24 11:19 Height 5 ft 9 in Weight 326 lb BMI 48.1 Intake Visit Reasons: 2 week follow up Left GSV RFA 03/31/24 Intake Note: pt states Left LE had started to decrease in swelling, but swelling has some pedal edema has returned. Right LE has some discoloration and itching and swelling. Accompanied by: Self / Same As Patient Allergies amlodipine [AMLODIPINE] Allergy (Intermediate, Verified 04/11/24 11:27) MUSCLE WEAKNESS, muscle aches, muscle aches doxazosin Allergy (Mild, Verified 04/11/24 11:27) muscle and joint pain hydrochlorothiazide [From Dutoprol] Allergy (Mild, Verified 04/11/24 11:27) joint and muscle pain lisinopril [LISINOPRIL] Allergy (Mild, Verified 04/11/24 11:27) COUGH metoprolol [From Dutoprol] Allergy (Mild, Verified 04/11/24 11:27) joint and muscle pain valsartan Allergy (Verified 04/11/24 11:27) Muscle cramps atenolol Adverse Reaction (Mild, Verified 04/11/24 11:27) muscle and joint pain chlorthalidone Adverse Reaction (Mild, Verified 04/11/24 11:27) muscle pain losartan Adverse Reaction (Mild, Verified 04/11/24 11:27) muscle pain all over body olmesartan [From Benicar] Adverse Reaction (Mild, Verified 04/11/24 11:27) joint and muscle pain candesartan and celexetil Adverse Reaction (Mild, Uncoded 04/11/24 11:27) muscle pain over all of body HPI HPI 2 week follow up Left GSV RFA 03/31/24: Details: Very pleasant 63-year-old gentleman presents for follow-up status post left great saphenous vein radiofrequency ablation. He appears to be doing relatively well. Now presents for follow-up. Reports that the swelling has improved somewhat. He is also concerned about his right lower extremity as well. [facility] Medical History Lymphedema Umbilical hernia Varicose veins of left lower extremity with inflammation PAD (peripheral artery disease) Essential hypertension Obesity Chronic venous stasis Hypertension Surgical History History of nasal surgery Hx of tonsillectomy Family History Mother High blood pressure Diabetes Father Diabetes High blood pressure Paternal Grandmother Thyroid disorder Maternal Grandfather Diabetes Paternal Grandfather Cancer Family/Other High blood pressure Diabetes Social History Household Members: Spouse Housing: Apartment Do you presently have visiting nurse or other home services: No Patient Tobacco Use Status: Never used Tobacco e-Cigarette/Vaping Use: Never Used service: No Current occupational status: employed 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 Cognitive needs: No Hearing needs: No Vision needs: No Review of Systems Const Reports as per HPI ENT Reports no additional complaints Card Denies chest pain, Denies chest pain at rest and Denies chest pain with activity Resp Denies chest congestion and Denies cough GI Reports no additional complaints Musc Details: pain over varicosities, aching of lower extremities, swelling, cramping, heaviness and tiredness, itching Denies abnormal gait Skin/Breast Reports pruritus and Denies wounds Neuro Reports no additional complaints and Denies abnormal gait Psych Denies no additional complaints Physical Exam Vital Signs: BMI result Body Mass Index 48.1 Const General: cooperative, healthy appearing and comfortable Orientation/consciousness: oriented to person, oriented to place and oriented to time Neck Carotids: no bruits Chest Chest palpation & inspection: normal inspection of the chest and normal palpation of entire chest wall Resp Effort & Inspection: normal respiratory effort and able to speak in complete sentences Cardio Rate: regular rate Heart sounds: S1 normal heart sound present and S2 normal heart sound present Peripheral pulses: Peripheral pulses 2+ throughout GI Inspection: Yes normal to inspection Skin Other: +2 edema, open active ulceration CEAP Classification C6 open ulcers Ep - Etiology Primary As - superficial veins P - reflux General skin exam: dry skin Neuro General: oriented to person, oriented to place and oriented to time Extrem Right lower extremity: full ROM, normal capillary refill and edema Left lower extremity: full ROM, normal capillary refill and edema Psych Mental Status: mental status grossly normal Assessment & Plan Assessment & Plan (1) Varicose veins of right lower extremity with inflammation: Code(s): I83.11 - Varicose veins of right lower extremity with inflammation Category: Medical Plan: This patient has varicose veins with inflammation. They continue to be a source of discomfort for the patient. The patient has tried conservative treatment with compression, leg elevation and exercise program for over 3 months time. They have been compliant with all treatment. This has provided minimal relief for the patient. I do not anticipate this course of treatment will alter the underlying etiology. The patient has been scheduled for lower extremity venous treatment inclusive of --- right great saphenous vein Cyanoacralate ablation. Risks, benefits, and complications of this procedure has been discussed in detail with the patient including but not limited to bleeding, infection, and the development of a DVT. The patient has demonstrated a clear understanding and has consented. We will schedule the patient as soon as possible. Thank you for allowing us to participate in this patient's care. If there are any questions or concerns please do not hesitate to contact us. (2) Varicose veins of left lower extremity with inflammation: Comment: 04/03/2024 - left great saphenous vein radiofrequency ablation Code(s): I83.12 - Varicose veins of left lower extremity with inflammation Category: Medical Plan: Left doing well postprocedure. He does have active ulcers. Will treat right leg. If no significant improvement will benefit from lymphedema pumps. Coding Level of Care Code Est Pt Level 4 (46434) Diagnoses Varicose veins of right lower extremity with inflammation I83.11 Varicose veins of left lower extremity with inflammation I83.12
== END 2024-04-11 12:01 | disposition home or self-care (01) ==
PROVIDERS: PCP Family Medicine; Visit Provider Surgery Vascular Surgery
DX: I83.11 Varicose veins of right lower extremity with inflammation (principal); I83.12 Varicose veins of left lower extremity with inflammation
CPT/HCPCS: 99214

== ENCOUNTER → 2024-04-11 10:51 | Outpatient (BNVA) | payer BC, SELFPAY | PROVIDERS: PCP Family Medicine; Visit Provider Surgery Vascular Surgery ==

== ENCOUNTER 2024-05-05 08:16 | Outpatient (AMB) | payer BC, SELFPAY ==
[2024-05-05 08:57] VITALS: BMI 48.1
--- NOTE | 2024-05-05 08:57 | MHC.OFFVIS ---
Vital Signs 05/05/24 08:57 Height 5 ft 9 in Weight 326 lb BMI 48.1 Intake Visit Reasons: Right Venaseal Accompanied by: Self / Same As Patient Allergies amlodipine [AMLODIPINE] Allergy (Intermediate, Verified 05/05/24 08:58) MUSCLE WEAKNESS, muscle aches, muscle aches doxazosin Allergy (Mild, Verified 05/05/24 08:58) muscle and joint pain hydrochlorothiazide [From Dutoprol] Allergy (Mild, Verified 05/05/24 08:58) joint and muscle pain lisinopril [LISINOPRIL] Allergy (Mild, Verified 05/05/24 08:58) COUGH metoprolol [From Dutoprol] Allergy (Mild, Verified 05/05/24 08:58) joint and muscle pain valsartan Allergy (Verified 05/05/24 08:58) Muscle cramps atenolol Adverse Reaction (Mild, Verified 05/05/24 08:58) muscle and joint pain chlorthalidone Adverse Reaction (Mild, Verified 05/05/24 08:58) muscle pain losartan Adverse Reaction (Mild, Verified 05/05/24 08:58) muscle pain all over body olmesartan [From Benicar] Adverse Reaction (Mild, Verified 05/05/24 08:58) joint and muscle pain candesartan and celexetil Adverse Reaction (Mild, Uncoded 05/05/24 08:58) muscle pain over all of body PFSH Medical History Lymphedema Umbilical hernia Varicose veins of left lower extremity with inflammation PAD (peripheral artery disease) Essential hypertension Obesity Chronic venous stasis Hypertension Surgical History History of nasal surgery Hx of tonsillectomy Family History Mother High blood pressure Diabetes Father Diabetes High blood pressure Paternal Grandmother Thyroid disorder Maternal Grandfather Diabetes Paternal Grandfather Cancer Family/Other High blood pressure Diabetes Social History Household Members: Spouse Housing: Apartment Do you presently have visiting nurse or other home services: No Patient Tobacco Use Status: Never used Tobacco e-Cigarette/Vaping Use: Never Used service: No Current occupational status: employed Current occupation: [employer] Cognitive needs: No Hearing needs: No Vision needs: No Physical Exam Vital Signs: BMI result Body Mass Index 48.1 Office Procedures Vascular Office Procedure Details Details: Diagnosis: Right Leg varicose veins with inflammation Procedure: Endovenous Ablation of the right Great Saphenous Vein with VenaSeal Closure System Anesthesia: Local infiltration 5 cc, Estimated Blood Loss: min Specimen: none Duplex ultrasound was used to map out the insufficient saphenous vein, and access was determined and marked on the overlying skin. The depth and diameter of the vein(s) to be treated was documented. The patient was placed supine on the procedure table and the leg was prepped and draped using sterile technique. Ultasound guidance was again used to localize the access site. 1% lidocaine was injected as a local anesthetic in the subcutaneous tissues at the target location in the GSV in the lower leg. Using ultrasound guidance, access was gained at this location with the 19 gauge thin walled access needle and followed by introduction of a short guidewire, location confirmed with ultrasound. A small, 3 mm incision was made at the access site to allow for introduction and placement of the 7 Fr x7cm introducer/dilator. The dilator and guidewire were removed. The 0.035 guidewire from the VenaSeal kit was then introduced and positioned at the saphenofemoral junction using ultrasound guidance. The 80 cm 7 Fr introducer sheath/dilator was positioned 5cm from the saphenofemoral junction. The guidewire and dilator were removed, and the remaining sheath was flushed with sterile saline, with the syringe remaining in place prior to the next steps. The cyanoacrylate adhesive was precisely primed into the 5 F delivery catheter and this catheter/syringe combination was attached within the dispenser gun. This assembly was introduced through the 7F sheath and positioned 5 cm caudal of the saphenofemoral junction under ultrasound guidance. The steps from the IFU were followed for dispensing amounts, locations and compression times, 2 aliquots proximally with 3 minutes of compression, and 1 aliquot every 3 cm distally with 30 sec of compression along the course of the vessel. Following the last injection and compression sequence, the catheter and introducer sheath were pulled out from the access site. Hemostasis was achieved with manual compression and an adhesive bandage was applied to the incision. Ultrasound confirmed complete coaptation and closure of the treated segments of the GSV, and the absence of any DVT at the saphenofemoral junction. Treatment time was approximately 6 minutes and the vein length treated was 42 cm. The drapes were removed and the patient cleaned and prepared for discharge. Post op ultrasound check is scheduled for 48-72 hours and the patient was given written post-op instructions. 66257 - Endoven Ther Chem Adhes 1st All charges added?: Procedure code (CPT) selection complete Assessment & Plan Assessment & Plan (1) Varicose veins of right lower extremity with inflammation: Comment: 05/05/2024 - right great saphenous vein Cyanoacralate ablation Code(s): I83.11 - Varicose veins of right lower extremity with inflammation Category: Medical Plan: See op note Coding Level of Care Code Procedure Only Diagnoses Varicose veins of right lower extremity with inflammation I83.11 CPT Codes Details - Vascular 3: 02032 - Endoven Ther Chem Adhes 1st ([id number])
== END 2024-05-05 11:03 | disposition home or self-care (01) ==
PROVIDERS: PCP Family Medicine; Visit Provider Surgery Vascular Surgery
DX: I83.11 Varicose veins of right lower extremity with inflammation (principal)
CPT/HCPCS: 36482

== ENCOUNTER → 2024-05-05 08:16 | Outpatient (BNVA) | payer BC, SELFPAY | PROVIDERS: PCP Family Medicine; Visit Provider Surgery Vascular Surgery | DX: I83.11 Varicose veins of right lower extremity with inflammation (principal) | CPT/HCPCS: 36482 ==

== ENCOUNTER 2024-05-08 11:47 | Outpatient (REF) | payer BC, SELFPAY ==
[2024-05-08 14:17] LABS: MANUAL DIFF FLAG NO
[2024-05-08 14:20] LABS: Appearance Urine Clear; Color Urine Yellow; Glucose Urine UA Negative (Negative); Leukocyte Esterase Urine Negative (Negative); Nitrite Urine Negative (Negative); PH 5.5 (5.0-9.0); Urine Blood Negative (Negative); Urine Ketones Negative (Negative); Urine Protein Negative (Neg-Trace)
[2024-05-08 14:29] LABS: Basophils Absolute Auto 0.1 X10*3/uL (0.0-0.2); Basophils Percent Auto 1.3 % (0-2); Eosinophils Absolute Auto 0.3 X10*3/uL (0.0-0.4); Eosinophils Percent Auto 3.7 % (0-4); Hematocrit 39.2 % (42.0-52.0); Hemoglobin 12.9 g/dl (14.0-18.0); Imm Gran Abs Auto 0.03 X10*3/uL (0.00-0.03); Imm Gran Pct Auto 0.4 % (0.0-0.4); Immature Retic Fraction 16.6 % (2.3-13.4); Lymphocytes Absolute Auto 1.8 X10*3/uL (1.2-4.9); Lymphocytes Percent Auto 26.1 % (20-40); Mean Corpuscular HGB Conc 32.9 g/dl (31.0-36.0); Mean Corpuscular Hemoglobin 29.3 pg (27.0-33.0); Mean Corpuscular Volume 89.1 fL (80.0-98.0); Mean Platelet Volume 10.3 fL (9.4-12.4); Monocytes Absolute Auto 0.7 X10*3/uL (0.1-1.2); Monocytes Percent Auto 9.6 % (2-11); Neutrophils Absolute Auto 4.1 x10*3/uL (2.0-8.3); Neutrophils Percent Auto 58.9 % (45-73); Platelet Count 318 X10*3/uL (160-400); Red Cell Distribution Width 13.7 % (11.0-16.0); Retic HGB Equivalent 33.5 pg (30.0-35.0); Reticulocyte Percent 2.3 % (0.5-1.8); Reticulocytes Absolute 0.099 X10*6/uL (0.026-0.095)
[2024-05-08 14:50] LABS: Iron 153 mcg/dL (45-160); Percent Iron Saturation 49 % (15-50); Total Iron Binding Capacity 312 mcg/dL (228-428); Unsaturated Iron Binding 159 ug/dL
[2024-05-08 15:32] LABS: Folate 17.9 ng/mL (> or = 4.0); Vitamin B12 758 pg/mL (200-900)
== END 2024-05-08 11:48 | disposition home or self-care (01) ==
LOC: HO.WFDLDS 11:47
PROVIDERS: Visit Provider Family Medicine
DX: Z00.00 Encounter for general adult medical examination without abnormal findings (principal); D64.9 Anemia, unspecified; E53.8 Deficiency of other specified B group vitamins; Z12.5 Encounter for screening for malignant neoplasm of prostate
CPT/HCPCS: 36415; 81003; 82607; 82746; 83540; 84153; 85025; 85045; 93005

== ENCOUNTER 2024-05-08 12:39 | Outpatient (AMB) | payer BC, SELFPAY ==
--- NOTE | 2024-05-08 12:57 | MHC.OFFVIS ---
Vital Signs 05/08/24 12:58 Height 5 ft 9 in Weight 326 lb 4.546 oz BMI 48.2 BP 146/82 H Blood Pressure Location Lt brachial Position Sitting Pulse 69 Intake Visit Reasons: [employer]/ Johnny/HTN/Heart Failure Intake Note: New patient dx htn and CHF has vascular issues see Dr Roque Oral And Maxillofacial Surgery Required: No Allergies amlodipine [AMLODIPINE] Allergy (Intermediate, Verified 05/05/24 08:58) MUSCLE WEAKNESS, muscle aches, muscle aches doxazosin Allergy (Mild, Verified 05/05/24 08:58) muscle and joint pain hydrochlorothiazide [From Dutoprol] Allergy (Mild, Verified 05/05/24 08:58) joint and muscle pain lisinopril [LISINOPRIL] Allergy (Mild, Verified 05/05/24 08:58) COUGH metoprolol [From Dutoprol] Allergy (Mild, Verified 05/05/24 08:58) joint and muscle pain valsartan Allergy (Verified 05/05/24 08:58) Muscle cramps atenolol Adverse Reaction (Mild, Verified 05/05/24 08:58) muscle and joint pain chlorthalidone Adverse Reaction (Mild, Verified 05/05/24 08:58) muscle pain losartan Adverse Reaction (Mild, Verified 05/05/24 08:58) muscle pain all over body olmesartan [From Benicar] Adverse Reaction (Mild, Verified 05/05/24 08:58) joint and muscle pain candesartan and celexetil Adverse Reaction (Mild, Uncoded 05/05/24 08:58) muscle pain over all of body Medication List - Last Reconciled 05/08/24 by Khanh He MD ammonium lactate 12% 1 appl See Protocol topical BID aspirin 81 mg PO DAILY bismuth tribrom-petrolatum,wh 5 X 9 (Xeroform Petrolatum Dressing) As directed blood pressure monitor Automatic, Digital. Dx: I10. Daily As directed, 999 days/lifetime. XL Cuff furosemide 40 mg PO DAILY 30 days hydrochlorothiazide 25 mg PO BID 90 days HPI Comments Details: Thank you for referring Titus in cardiology consultation today for management of fluid overload. Titus has been diagnose with congestive heart failure, last seen cardiology in 2019 prior to the COVID pandemic. At that time he had a cardiac workup done including a myocardial perfusion imaging at [facility] with a vaso dilated due to nondiagnostic treadmill stress test and significant shortness of breath with exertion. That was negative for myocardial ischemia. Echocardiogram done at that time showed normal LV ejection fraction with dilated right ventricle without any major valvular abnormality. He said many years ago he had come in to the hospital at [facility] in the ED because of sudden worsening shortness of breath at that time was told that he had fluid in his lung and was treated with Lasix. He said he had diuresed well at that point time and subsequently has been on oral furosemide therapy. He is also taking hydrochlorothiazide. He said these are the only medication he could tolerate and he has been taking them to manage his blood pressure and despite that his blood pressure remains significantly elevated. He is tried other blood pressure medication including calcium channel blockers, beta-blockers as well as SHERYL inhibitors. Lisinopril gave him cough although it was working well for him. He was subsequently switched to losartan which then gave him muscle and joint aches and was discontinued. His blood pressure remains elevated, on today's exam his systolic blood pressure 146 and says that at home they generally further elevated than that. He denies any clear orthopnea or PND although he said he has to sleep on his side. He does get short of breath when he bends over. Also gets shortness of breath when he walks up hill or a flight of stairs. He does have leg edema for which she is being treated by vascular surgery for venous insufficiency and has had multiple procedures done on his legs including left and right legs for varicose veins. He is currently wearing compression venous stocking up to the knee 20-30 mmHg. He denies any palpitations. Denies any exertional chest pain. Denies any lightheadedness, syncope. He does not attest to any significant symptoms of daytime somnolence although said in the past he was not able to undergo a sleep study appropriately. He is BNP most recently in January has been within normal limits. He says he has been trying to lose weight but has not been extremely successful. [facility] Medical History Lymphedema Umbilical hernia Varicose veins of left lower extremity with inflammation PAD (peripheral artery disease) Essential hypertension Obesity Chronic venous stasis Hypertension Surgical History History of nasal surgery Hx of tonsillectomy Family History Mother High blood pressure Diabetes Father Diabetes High blood pressure Paternal Grandmother Thyroid disorder Maternal Grandfather Diabetes Paternal Grandfather Cancer Family/Other High blood pressure Diabetes Social History Household Members: Spouse Housing: Apartment Do you presently have visiting nurse or other home services: No Patient Tobacco Use Status: Never used Tobacco e-Cigarette/Vaping Use: Never Used service: No Current occupational status: employed Current occupation: [employer] Cognitive needs: No Hearing needs: No Vision needs: No Review of Systems Const Denies chills, Denies daytime sleepiness, Denies fatigue, Denies fever(s), Denies frequent falls, Denies poor appetite, Denies snoring, Denies stops breathing during sleep, Denies weakness, Denies weight gain and Denies weight loss Eyes Denies loss of vision ENT Denies dizziness and Denies hearing loss Card Denies chest pain, Denies claudication, Reports leg edema, Denies lightheadedness, Denies palpitations, Denies dyspnea, Denies dyspnea on exertion and Denies orthopnea Resp Denies cough, Denies excessive phlegm production, Denies dyspnea, Denies dyspnea on exertion, Denies snoring and Denies wheezing GI Denies abdominal pain, Denies hematochezia, Denies change in bowel habits, Denies nausea and Denies vomiting Denies dysuria and Denies urinary frequency Musc Denies arthralgias, Denies muscle weakness, Denies numbness and Denies other (frequent falls) Skin/Breast Denies nail changes and Denies rash Neuro Denies Abnormal speech present, Denies dizziness, Denies frequent falls, Denies loss of vision, Denies memory loss, Denies numbness and Denies weakness Psych Denies depression and Denies memory loss Endo Denies fatigue and Denies palpitations Pablo/Lymph Reports easy bruising and Reports other (anemia) Aller/Immun Denies wheezing Physical Exam Vital Signs: Last Vital Signs Pulse 69 05/08/24 12:58 BP 146/82 H 05/08/24 12:58 BMI result Body Mass Index 48.2 Const General: cooperative, comfortable, no acute distress, alert and awake Nutritional Appearance: obese morbidly obese Orientation/consciousness: patient oriented x3 Limitations: no limitations HEENT Head: Yes normocephalic and Yes atraumatic Neck Neck: Yes trachea midline, Yes supple and Yes no JVD Resp Effort & Inspection: normal respiratory effort Auscultation: clear to auscultation bilaterally, no rales, no wheezes and diminished lung sounds Cardio Jugular venous distension: no JVD Rate: regular rate Rhythm: regular rhythm Heart sounds: S1 normal heart sound present, S2 normal heart sound present, no click, no gallops, no murmurs and no rubs GI Auscultation: normal bowel sounds Skin General skin exam: no rashes or lesions noted Neuro General: patient oriented x3 and no focal motor deficits Speech: No Abnormal speech present Extrem General: No clubbing, No cyanosis and Yes edema (2+ below knee edema despite compression venous stockings) Psych Appearance: grossly normal Office Procedures EKG Details: EKG shows sinus rhythm with first-degree AV block otherwise normal EKG [id number], Complete Assessment & Plan Assessment & Plan (1) SOB (shortness of breath) on exertion: Code(s): R06.02 - Shortness of breath Category: Medical Plan: Patient persistent exertional shortness of breath without any clear evidence of central venous congestion with normal BNP about 3 months ago. He has history of congestive heart failure by presentation to emergency room and been labeled as congestive heart failure. Will review the records from that time. Currently on furosemide 40 mg daily hydrochlorothiazide both for decongestive therapy as well as management of high blood pressure. His blood pressure remains elevated and not controlled. He has had intolerance to multiple medications in the past. Echocardiogram from 5 years ago was suggestive of normal LV systolic function without any clear diastolic dysfunction with enlarged right ventricle. I would repeat an echocardiogram to assess LV systolic and diastolic function to evaluate for pulmonary hypertension and right-sided function. Would add spironolactone 12.5 mg to his regimen for both blood pressure management as well as for management of heart failure if true. Will check BMP in 1 week. Also strongly suggest him to have home sleep study performed. His current leg edema appears to be more related to venous insufficiency rather than congestive heart failure and strongly recommend follow-up with vascular as well as participate in venous compression therapy. His BNP in January was within normal limits although this could be falsely negative in patients with morbid obesity. However I think he will benefit significantly from aggressive weight loss program. Did gently recommend bariatric surgery although he has currently not interested in wants to participate in natural weight loss. Importance of good blood pressure control was discussed advised to monitor blood pressure at home maintain a log. Will gradually uptitrate spironolactone therapy if tolerated to maintain adequate blood pressure control. Will follow up in the clinic in 2 months time, sooner p.r.n.. Thank you for allowing me to partake in his care Orders: Orders CA echo transthoracic complete Today R06.02 - Shortness of breath Basic Metabolic Panel 1 Week R06.02 - Shortness of breath RT home sleep study Today R06.02 - Shortness of breath Medications: New spironolactone 12.5 mg (1/2 x 25 mg) PO DAILY 30 tabs 5RF Coding Level of Care Code New Pt Level 4 (79471) Diagnoses SOB (shortness of breath) on exertion R06.02 CPT Codes EKG - CPT: 93824-[id number], Complete ([id number])
[2024-05-08 12:58] VITALS: BP 146/82; PULSE 69; BMI 48.2
== END 2024-05-08 13:49 | disposition home or self-care (01) ==
PROVIDERS: PCP Family Medicine; Visit Provider Internal Medicine Cardiovascular Disease
DX: R06.02 Shortness of breath (principal)
CPT/HCPCS: 93010; 99204

== ENCOUNTER 2024-05-08 13:55 | Outpatient (REF) | payer BC, SELFPAY ==
--- NOTE | ~2024-05-08 | US_ITS ---
EXAMINATION: TRIPLEX SCANNING OF RIGHT LOWER EXTREMITY; SUPERFICIAL ULTRASOUND WITH DOPPLER OF RIGHT LOWER EXTREMITY CLINICAL INFORMATION: Status post VenaSeal ablation of the right great saphenous vein originally performed on 05/05/2024. COMPARISON: Preprocedure studies. TECHNIQUE: Color flow triplex imaging and compression Doppler were performed as well as superficial ultrasound with Doppler. FINDINGS: TRIPLEX SCANNING OF RIGHT LOWER EXTREMITY: Respiratory variation, normal compression and augmented flow are noted throughout the lower extremity. The visualized right common femoral vein, femoral vein, profunda femoral vein, popliteal vein and the calf veins show no evidence of deep venous thrombosis. Peroneal veins could not be seen secondary to edema and pelvic scan. There is no evidence of Skelton's cyst. SUPERFICIAL ULTRASOUND WITH DOPPLER OF RIGHT LOWER EXTREMITY: The right great saphenous vein is occluded from the access site to 4.6 cm before the saphenofemoral junction. There is no extension of thrombus into the deep system. US/US venous duplex LE RT IMPRESSION: 1. Normal triplex scan of the right without evidence of deep venous thrombosis. 2. Excellent appearance status post ablation of the right great saphenous vein.
== END 2024-05-08 13:56 | disposition home or self-care (01) ==
LOC: HO.US 13:55
PROVIDERS: PCP Family Medicine; Visit Provider Surgery Vascular Surgery
DX: M79.604 Pain in right leg (principal)
CPT/HCPCS: 93971

== ENCOUNTER 2024-05-18 10:01 | Outpatient (REF) | payer BC, SELFPAY ==
[2024-05-18 12:24] LABS: Anion Gap 12 (12-20); Blood Urea Nitrogen 24 mg/dL (9-16); Calcium 9.7 mg/dL (8.4-10.2); Carbon Dioxide 27 mmol/L (22-29); Chloride 102 mmol/L (96-108); Estimated Glomerular Filt Rate > 60; Glucose Random 94 mg/dL (60-115); Potassium 3.9 mmol/L (3.3-5.1); Sodium 137 mmol/L (135-145)
== END 2024-05-18 10:02 | disposition home or self-care (01) ==
LOC: HO.WFDLDS 10:01
PROVIDERS: Visit Provider Internal Medicine Cardiovascular Disease
DX: R06.02 Shortness of breath (principal)
CPT/HCPCS: 36415; 80048

== ENCOUNTER 2024-05-22 09:59 | Outpatient (AMB) | payer BC, SELFPAY ==
[2024-05-22 10:22] VITALS: BP 140/86; PULSE 78; RESP 15; TEMP 36.5; O2SAT 95; BMI 45.8
--- NOTE | 2024-05-22 10:22 | MHC.PC.OV ---
Vital Signs 05/22/24 10:22 Height 5 ft 9 in Weight 310 lb BMI 45.8 BP 140/86 H Blood Pressure Location Rt brachial Position Sitting Respiration 15 Pulse 78 Pulse Source Pulse Oximeter Temp 97.7 F Temp Source Temporal Artery Scan Pulse Oximetry (%) 95 Oxygen Delivery Method Room Air Intake Visit Reasons: f/u pre-diabetes, hypertension, chronic conditions Intake Note: Patient states that he would like hernia and legs looked at. Patient states that his new prescription spironolactone is causing dizziness and hasnt been helping with urination.b Patient would like refill on ammonium lactate lotion. Patient would like 30 MG Compression stalking thigh high due to knee highs cutting off circulation. Patient states hes having pain in the hip/joint. [facility] Director Required: No Accompanied by: Spouse Allergies amlodipine [AMLODIPINE] Allergy (Intermediate, Verified 05/22/24 10:40) MUSCLE WEAKNESS, muscle aches, muscle aches doxazosin Allergy (Mild, Verified 05/22/24 10:40) muscle and joint pain hydrochlorothiazide [From Dutoprol] Allergy (Mild, Verified 05/22/24 10:40) joint and muscle pain lisinopril [LISINOPRIL] Allergy (Mild, Verified 05/22/24 10:40) COUGH metoprolol [From Dutoprol] Allergy (Mild, Verified 05/22/24 10:40) joint and muscle pain valsartan Allergy (Verified 05/22/24 10:40) Muscle cramps atenolol Adverse Reaction (Mild, Verified 05/22/24 10:40) muscle and joint pain chlorthalidone Adverse Reaction (Mild, Verified 05/22/24 10:40) muscle pain losartan Adverse Reaction (Mild, Verified 05/22/24 10:40) muscle pain all over body olmesartan [From Benicar] Adverse Reaction (Mild, Verified 05/22/24 10:40) joint and muscle pain candesartan and celexetil Adverse Reaction (Mild, Uncoded 05/05/24 08:58) muscle pain over all of body Medication List - Last Reconciled 05/22/24 by Jack Turner MD ammonium lactate 12% 1 appl See Protocol topical BID aspirin 81 mg PO DAILY bismuth tribrom-petrolatum,wh 5 X 9 (Xeroform Petrolatum Dressing) As directed blood pressure monitor Automatic, Digital. Dx: I10. Daily As directed, 999 days/lifetime. XL Cuff furosemide 40 mg PO DAILY 30 days hydrochlorothiazide 25 mg PO BID 90 days spironolactone 12.5 mg (1/2 x 25 mg) PO DAILY Tobacco use date assessed: 02/21/24 Fall risk assessment: No Falls in past year Last assessed Fall Risk: 05/22/24 Dental Screening Dental Screen Date: 01/12/24 HPI f/u pre-diabetes, hypertension, chronic conditions HPI Details 63 y/o male presents to f/u pre-diabetes, hypertension, chronic conditions. Had sent a script for hydrochlorothiazide. Labs were drawn 05/08/24. Reviewed labs with pt. Ongoing anemia. Elevated PSA of 4.80. A1c 05/22/24 increased to 6.5% - diabetes range. Blood pressure today 140/86, 78p. He is on hydrochlorothiazide 25mg b.i.d, spironolactone 12.5mg daily. Has complaints of hip pain. HPI Comments History of Present Illness Details Documentation assistance for Jack Turner MD, was provided by Brandin Mccoy, [employer] Machinist 2Nd Shift on 05/22/2024 at 11:05 AM EST. I, Dr. Turner, have read, observed, and verified documentation. [facility] Medical History Lymphedema Umbilical hernia Varicose veins of left lower extremity with inflammation PAD (peripheral artery disease) Essential hypertension Obesity Chronic venous stasis Hypertension Surgical History History of nasal surgery Hx of tonsillectomy Family History Mother High blood pressure Diabetes Father Diabetes High blood pressure Paternal Grandmother Thyroid disorder Maternal Grandfather Diabetes Paternal Grandfather Cancer Family/Other High blood pressure Diabetes Social History Household Members: Spouse Housing: Apartment Do you presently have visiting nurse or other home services: No Patient Tobacco Use Status: Never used Tobacco e-Cigarette/Vaping Use: Never Used service: No Current occupational status: employed 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 Curtis Montes, Jocelynn Jefferson, Moshe Ochoa and colleagues, with an educational sher from [employer]. Review of Systems Const Denies chills, Denies fatigue, Denies fever(s), Denies headache(s) and Denies weakness ENT Denies dizziness and Denies headache(s) Card Denies dyspnea Resp Denies cough, Denies dyspnea, Denies wheezing and Denies other (shortness of breath) Musc Denies numbness and Denies tingling Neuro Denies dizziness, Denies headache(s), Denies numbness, Denies tingling and Denies weakness Psych Denies anxiety and Denies depression Endo Denies fatigue Aller/Immun Denies wheezing Physical exam (Primary Care) Vital Signs: Last Vital Signs Temp 97.7 F 05/22/24 10:22 Pulse 78 05/22/24 10:22 Resp 15 05/22/24 10:22 BP 140/86 H 05/22/24 10:22 Pulse Ox 95 05/22/24 10:22 Oxygen Delivery Method Room Air 05/22/24 10:22 BMI result Body Mass Index 45.8 Tobacco/Smoking Status: Tobacco use Status Tobacco use date assessed 02/21/24 05/22/24 10:22 Patient Tobacco Use Status Never used Tobacco 05/22/24 10:22 e-Cigarette/Vaping Use Never Used 05/22/24 10:22 Thrive Assessment: Date of Thrive Assessment Date Thrive assessed 12/29/23 05/22/24 10:22 Const General: well developed; No acute distress Nutritional Appearance: obese morbidly obese Orientation/consciousness: patient oriented x3 HENMA Head: Yes normocephalic and Yes atraumatic Eyes General: appearance normal, both eyes and all related structures Pupils: Equal, round and reactive pupils present EOM: EOMs intact bilaterally Resp Effort & Inspection: normal respiratory effort Auscultation: clear to auscultation bilaterally Cardio Rate: regular rate Rhythm: regular rhythm Heart sounds: S1 normal heart sound present, S2 normal heart sound present, no gallops, no murmurs and no rubs Neuro General: patient oriented x3 and gait normal Cranial nerves: Yes Equal, round and reactive pupils present Psych Affect: normal affect Results AMB Hemoglobin A1c AMB Hemoglobin A1c 6.5 % Last Edit by LINN Barber on 05/22/24 10:46 Results Reviewed Results Reviewed: Laboratory Last Values Hgb A1c (Clinic) 6.5 % (4.0-6.0) H 05/22/24 10:44 Assessment and Plan Assessment & Plan (1) Essential hypertension: Code(s): I10 - Essential (primary) hypertension Plan: Blood?pressure?is?still?above?goal?of?less?than?140/90 He?has?made?changes?to?his?blood?pressure?medication?with?his?prep room supervisor?recently?and?begins?implementation?today Continue?current?medication?regimen.??Let?me?or?prep room supervisor?know?if?not?controlled (2) Mild anemia: Code(s): D64.9 - Anemia, unspecified Plan: Likely?anemia?of?chronic?disease.??Will?continue?to?monitor (3) CHF (congestive heart failure): Code(s): I50.9 - Heart failure, unspecified Qualifiers: Heart failure chronicity: chronic Heart failure type: systolic Qualified Code(s): I50.22 - Chronic systolic (congestive) heart failure Plan: He?is?on?furosemide.??Questionable?if?patient?has?CHF?though?he?has?clear?lower?extremity?edema. BNP?has?been?in?normal?range Patient?is?breathing?easy?and?lungs?are?clear. Follow-up?with?Cardiology?as?recommended (4) Elevated PSA: Code(s): R97.20 - Elevated prostate specific antigen [PSA] Plan: Referred?to?urology (5) Severe obesity (BMI >= 40): Comment: Lifestyle mild encouraged Code(s): E66.01 - Morbid (severe) obesity due to excess calories Plan: Encouraged?weight?loss And?exercise (6) Lower extremity edema: Code(s): R60.0 - Localized edema Plan: Significant?lower?extremity?edema?and?followed?by?vascular?surgery Will?give?him?a?script?for?thigh-high?compression?stockings Elevate?legs Continue?furosemide Follow-up?with?vascular?surgery?as?recommended (7) Dermatitis: Code(s): L30.9 - Dermatitis, unspecified (8) Diabetes: Code(s): E11.9 - Type 2 diabetes mellitus without complications Plan: A1c?6.5%.??Diabetes?range.?Controlled - goal?is?less?than?7.0%. Will?continue?to?monitor. Continue?diet?lower?in?sugars?and?starches Encouraged?exercise?and?weight?loss If A1c?continues?to?climb,?would?discuss?medication?as?patient?has?multiple?comorbidities. (9) Hip pain: Code(s): M25.559 - Pain in unspecified hip Plan: Left?posterolateral?muscular?discomfort. Decreased?range?of?motion?with?straight?leg?raise?but?no?radicular?or?sciatic?symptoms. Offered?physical?therapy?but?patient?does?not?think?he?can?include?this?in?his?schedule?at?this?time He?will?use?ice/heat?and?also?topical?NSAIDs?such?as?Aspercreme?with?lidocaine Gentle?stretching?when?pain?is?abated. (10) Venous stasis dermatitis: Code(s): I87.2 - Venous insufficiency (chronic) (peripheral) Plan: Continue?ammonium?lactate Will?give?him?a?course?of?clobetasol Control?lower?extremity?edema-see?above Orders: Orders AMB Hemoglobin A1c Today R73.03 - Prediabetes Referrals Urology Referral R97.20 - Elevated prostate specific antigen [PSA] Medications: New clobetasol 0.05% 1 appl topical BID 2 weeks 60 grams 1RF comp.stocking,thigh,long,x-lrg 30-40?mmHg. Use?Daily?As directed, 90 days 12 ea 2RF I83.11 - Varicose veins of right lower extremity with inflammation, I87.2 - Venous insufficiency (chronic) (peripheral), I89.0 - Lymphedema, not elsewhere classified Refilled ammonium lactate 12% 1 appl See Protocol topical BID 400 grams 2RF Coding Level of Care Code Est Pt Level 4 (60742) Diagnoses Essential hypertension I10 Mild anemia D64.9 Chronic systolic congestive heart failure I50.22 Heart failure chronicity: chronic Heart failure type: systolic Elevated PSA R97.20 Severe obesity (BMI >= 40) E66.01 Lower extremity edema R60.0 Dermatitis L30.9 Diabetes E11.9 Hip pain M25.559 Venous stasis dermatitis I87.2
== END 2024-05-22 11:44 | disposition home or self-care (01) ==
PROVIDERS: PCP Family Medicine; Visit Provider Family Medicine
DX: I11.0 Hypertensive heart disease with heart failure (principal); I50.22 Chronic systolic (congestive) heart failure; E66.01 Morbid (severe) obesity due to excess calories; E11.620 Type 2 diabetes mellitus with diabetic dermatitis; Z68.42 Body mass index [BMI] 45.0-49.9, adult; D64.9 Anemia, unspecified; R97.20 Elevated prostate specific antigen [PSA]; M25.552 Pain in left hip; R60.0 Localized edema; L30.9 Dermatitis, unspecified; I87.2 Venous insufficiency (chronic) (peripheral)
CPT/HCPCS: 83036; 99214

== ENCOUNTER 2024-05-23 11:03 | Outpatient (AMB) | payer BC, SELFPAY ==
[2024-05-23 11:04] VITALS: BMI 45.8
--- NOTE | 2024-05-23 11:04 | MHC.OFFVIS ---
Vital Signs 05/23/24 11:04 Height 5 ft 9 in Weight 310 lb BMI 45.8 Intake Visit Reasons: 2 week follow up post Right Venaseal Intake Note: 2 week follow up Right GSV Venaseal 05/05/24 & Hx of Left GSV RFA 03/31/24. Pt states he would like to get an Rx for compresssion stockings and lymphedema pumps Accompanied by: Self / Same As Patient Allergies amlodipine [AMLODIPINE] Allergy (Intermediate, Verified 05/23/24 11:13) MUSCLE WEAKNESS, muscle aches, muscle aches doxazosin Allergy (Mild, Verified 05/23/24 11:13) muscle and joint pain hydrochlorothiazide [From Dutoprol] Allergy (Mild, Verified 05/23/24 11:13) joint and muscle pain lisinopril [LISINOPRIL] Allergy (Mild, Verified 05/23/24 11:13) COUGH metoprolol [From Dutoprol] Allergy (Mild, Verified 05/23/24 11:13) joint and muscle pain valsartan Allergy (Verified 05/23/24 11:13) Muscle cramps atenolol Adverse Reaction (Mild, Verified 05/23/24 11:13) muscle and joint pain chlorthalidone Adverse Reaction (Mild, Verified 05/23/24 11:13) muscle pain losartan Adverse Reaction (Mild, Verified 05/23/24 11:13) muscle pain all over body olmesartan [From Benicar] Adverse Reaction (Mild, Verified 05/23/24 11:13) joint and muscle pain candesartan and celexetil Adverse Reaction (Mild, Uncoded 05/23/24 11:13) muscle pain over all of body HPI HPI 2 week follow up post Right Venaseal: Details: Very complex 63-year-old gentleman presents for routine follow-up status post most right great saphenous vein Cyanoacralate ablation. He reports minimal relief. He does note some of the itching and discomfort has improved. Still has significantly swollen and excoriated lower extremities. He now presents for routine follow-up. Of note postprocedure ultrasound was negative for DVT [facility] Medical History Lymphedema Umbilical hernia Varicose veins of left lower extremity with inflammation PAD (peripheral artery disease) Essential hypertension Obesity Chronic venous stasis Hypertension Surgical History History of nasal surgery Hx of tonsillectomy Family History Mother High blood pressure Diabetes Father Diabetes High blood pressure Paternal Grandmother Thyroid disorder Maternal Grandfather Diabetes Paternal Grandfather Cancer Family/Other High blood pressure Diabetes Social History Household Members: Spouse Housing: Apartment Do you presently have visiting nurse or other home services: No Patient Tobacco Use Status: Never used Tobacco e-Cigarette/Vaping Use: Never Used service: No Current occupational status: employed 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 Cognitive needs: No Hearing needs: No Vision needs: No Review of Systems Const Reports as per HPI ENT Reports no additional complaints Card Denies chest pain, Denies chest pain at rest and Denies chest pain with activity Resp Denies chest congestion and Denies cough GI Reports no additional complaints Musc Details: pain over varicosities, aching of lower extremities, swelling, cramping, heaviness and tiredness, itching Denies abnormal gait Skin/Breast Reports pruritus and Denies wounds Neuro Reports no additional complaints and Denies abnormal gait Psych Denies no additional complaints Physical Exam Vital Signs: BMI result Body Mass Index 45.8 Const General: cooperative, healthy appearing and comfortable Orientation/consciousness: oriented to person, oriented to place and oriented to time Neck Carotids: no bruits Chest Chest palpation & inspection: normal inspection of the chest and normal palpation of entire chest wall Resp Effort & Inspection: normal respiratory effort and able to speak in complete sentences Cardio Rate: regular rate Heart sounds: S1 normal heart sound present and S2 normal heart sound present Peripheral pulses: Peripheral pulses 2+ throughout GI Inspection: Yes normal to inspection Skin Other: +2 edema, large rope-like varicosities greater than 4 mm CEAP Classification C4 - skin color changes Ep - Etiology Primary As - superficial veins P - reflux General skin exam: dry skin Neuro General: oriented to person, oriented to place and oriented to time Extrem Other: Right in cm: Thigh 64 Knee 53 Calf 51 Ankle 34 Left in cm: Thigh 64 Knee 58 Calf 61.7 Ankle 40 Right lower extremity: full ROM, normal capillary refill and edema Left lower extremity: full ROM, normal capillary refill and edema Psych Mental Status: mental status grossly normal Assessment & Plan Assessment & Plan (1) Varicose veins of right lower extremity with inflammation: Comment: 05/05/2024 - right great saphenous vein Cyanoacralate ablation Code(s): I83.11 - Varicose veins of right lower extremity with inflammation Category: Medical Plan: In short patient has done well status post venous ablation. He does have significantly swollen lower extremities will require lymphedema treatment. (2) Lymphedema: Code(s): I89.0 - Lymphedema, not elsewhere classified Category: Medical Plan: In short the patient has late on sent lymphedema. The patient has been on conservative treatment for at least 3 months with minimal relief. Patient has tried 30 mm of mercury compression garments, elevation, exercise healthy diet and doing manual says self MLD to the best of their ability for over 4 weeks but with no significant relief. She has been compliant with the program but has provided minimal relief. In addition on physical we are noticing hyperpigmentation, lymphorrhea, and hyperplasia and open ulcerations. It appears that she has stage 2 lymphedema. Patient has completed multiple forms of conservative therapy yet significant symptoms remain. Patient requires the use of a pneumatic compression device which we will assist in trying to have the patient obtain them. A pneumatic compression device will help reduce swelling and other lymphedema comorbidities. Thank you for allowing us to assist in this patient's care. Coding Level of Care Code Est Pt Level 4 (40196) Diagnoses Varicose veins of right lower extremity with inflammation I83.11 Lymphedema I89.0
== END 2024-05-23 11:28 | disposition home or self-care (01) ==
PROVIDERS: PCP Family Medicine; Visit Provider Surgery Vascular Surgery
DX: I83.11 Varicose veins of right lower extremity with inflammation (principal); I89.0 Lymphedema, not elsewhere classified
CPT/HCPCS: 99214

== ENCOUNTER → 2024-05-23 11:03 | Outpatient (BNVA) | payer BC, SELFPAY | PROVIDERS: PCP Family Medicine; Visit Provider Surgery Vascular Surgery ==

== ENCOUNTER → 2024-06-05 10:59 | Outpatient (REF) | payer BC, SELFPAY ==
--- NOTE | 2024-06-05 11:02 | CA_ITS ---
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 The calculated ejection fraction is 61% by biplane method. - No obvious valvular pathology seen on this study. - There is mild dilatation of the ascending aorta measuring 4.10 cm. - Mild pulmonary hypertension is present. Findings Left Ventricle Normal left ventricular cavity size. The left ventricular systolic function is normal. The calculated ejection fraction is 61% by biplane method. There is no evidence of regional wall motion abnormalities. Diastolic function is normal for age. Possible septal hypertrophy, but difficult to assess. LV peak GLS -19.4%. Right Ventricle Mildly increased right ventricular cavity size. There is normal right ventricular systolic function. Atria The left atrium is mildly dilated. The right atrium is normal in size. Aortic Valve There is a normal trileaflet aortic valve. There is no aortic valve stenosis. There is no aortic valve regurgitation. Mitral Valve The mitral valve appears normal. There is no mitral valve regurgitation. There is no mitral valve stenosis. Pulmonic Valve The pulmonic valve is likely normal. Tricuspid Valve Normal tricuspid valve structure. There is trace tricuspid valve regurgitation. Mild pulmonary hypertension is present. Great Vessels The aortic arch is normal in size. There is mild dilatation of the ascending aorta measuring 4.10 cm. Venous The inferior vena cava is dilated and collapses less than 50% with inspiration. Pericardium/Pleural There is no evidence of pericardial effusion. Prior Study Comparison Changes noted compared to prior study dated: 07/07/2016. Increase in ascending aortic size. See comment on pulmonary hypertension. Recommendations, Care & Conclusions No obvious valvular pathology seen on this study. Measurements 2D Linear Measurements IVSd: 1.55 0.6-0.9/0.6-1.0 cm LVIDd: 5.25 3.9-5.3/4.2-5.9 cm LVIDd Index: 2.10 2.4-3.2/2.2-3.1 cm/m2 LVIDs: 3.64 2.0-3.6 cm LVPWd: 1.07 0.7-1.1 cm LA Diam: 4.90 2.7-3.8/3.0-4.0 cm LAIDs Index: 1.96 1.5-2.3 cm/m2 LV Mass: 356.45 67-162/88-224 g LV Mass Index: 142.58 43-95/49-115 g/m2 LVOT Diam: 2.20 3.0+(-)1.3 cm 2D Systolic Function EF 4C: 59.00 >55% EF 2C: 62.00 >55% EF BiP: 61.30 >55% Mitral Valve MV Pk E: 0.93 MV PK A: 0.65 MV Decel Time: 175.00 E/A: 1.40 E'Lateral: 12.40 E'Medial: 7.94 E/E' Med: 11.60 E/E' Lat: 7.50 PHT: 51.00 MVA PHT: 4.31 Decel [place]: 5.29 Aortic Valve AoV Pk Jan: 1.96 AoV Mn Jan: 1.32 AoV VTI: 0.44 AoV Pk Grad: 15.00 Aov Mn Grad: 8.00 KIRAN Cont.VTI: 3.18 LVOT LVOT Pk Jan: 1.58 LVOT Mn Jan: 1.09 LVOT VTI: 0.37 LVOT Pk Grad: 10.00 LVOT Mn Grad: 5.00 LVOT Diam: 2.20 LVOT Area: 3.80 Diastolic Function MV Pk E: 0.93 MV Pk A: 0.65 E/A: 1.40 E'Medial: 7.94 E/E' Med: 11.60 E' Laterial: 12.40 E/E' Lat: 7.50 Right Ventricle TAPSE (mm): 34.60 TVS' Jan: 19.70 Tricuspid Valve TR Pk Jan: 2.56 TR Pk Grad: 26.00 RA Press: 15.00 RVSP: 41.00 Great Vessels Aorta Sinus of Valsalva: 3.86 2.0-3.5 cm Ao Asc: 4.10 2.1-3.4 cm Ao Arch: 3.00 Updated in Other Vendor System with Status of Final Kamlesh Pollock MD electronically signed on 06/06/2024 12:22:30 PM with status of Final
== END ==
LOC: HO.CARD 10:59
PROVIDERS: PCP Family Medicine; Visit Provider Internal Medicine Cardiovascular Disease
DX: R06.02 Shortness of breath (principal)
CPT/HCPCS: 93306; 93356

== ENCOUNTER → 2024-06-05 11:02 | Outpatient (BNV) | payer BC, SELFPAY | PROVIDERS: PCP Family Medicine; Visit Provider Internal Medicine | DX: I27.20 Pulmonary hypertension, unspecified (principal); I71.21 Aneurysm of the ascending aorta, without rupture; I42.2 Other hypertrophic cardiomyopathy | CPT/HCPCS: 93306; 93356 ==

== ENCOUNTER 2024-08-07 13:45 | Outpatient (REF) | payer BC, SELFPAY ==
[2024-08-07 17:10] LABS: Urine Cytology See Pathology rpt
== END 2024-08-07 13:46 | disposition home or self-care (01) ==
LOC: HO.LNP 13:45
PROVIDERS: PCP Family Medicine; Visit Provider Nurse Practitioner Family
DX: R97.20 Elevated prostate specific antigen [PSA] (principal)
CPT/HCPCS: 81003; 88112

== ENCOUNTER 2024-08-07 13:45 | Outpatient (AMB) | payer BC, SELFPAY ==
--- NOTE | 2024-08-07 14:07 | A.OFFVIS_ITS ---
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 Required: No Accompanied by: Self / Same As Patient Allergies amlodipine [AMLODIPINE] Allergy (Intermediate, Verified 08/07/24 15:17) MUSCLE WEAKNESS, muscle aches, muscle aches doxazosin Allergy (Mild, Verified 08/07/24 15:17) muscle and joint pain hydrochlorothiazide [From Dutoprol] Allergy (Mild, Verified 08/07/24 15:17) joint and muscle pain lisinopril [LISINOPRIL] Allergy (Mild, Verified 08/07/24 15:17) COUGH metoprolol [From Dutoprol] Allergy (Mild, Verified 08/07/24 15:17) joint and muscle pain valsartan Allergy (Verified 08/07/24 15:17) Muscle cramps atenolol Adverse Reaction (Mild, Verified 08/07/24 15:17) muscle and joint pain chlorthalidone Adverse Reaction (Mild, Verified 08/07/24 15:17) muscle pain losartan Adverse Reaction (Mild, Verified 08/07/24 15:17) muscle pain all over body olmesartan [From Benicar] Adverse Reaction (Mild, Verified 08/07/24 15:17) joint and muscle pain candesartan and celexetil Adverse Reaction (Mild, Uncoded 08/07/24 15:17) muscle pain over all of body Medication List - Last Reconciled 08/07/24 by BLANCHE Flores ammonium lactate 12% 1 appl See Protocol topical BID aspirin 81 mg PO DAILY bismuth tribrom-petrolatum,wh 5 X 9 (Xeroform Petrolatum Dressing) As directed blood pressure monitor Automatic, Digital. Dx: I10. Daily As directed, 999 days /lifetime. XL Cuff comp.stocking,thigh,long,x-lrg 30-40?mmHg. Use?Daily?As directed, 90 days furosemide 40 mg PO DAILY 30 days hydrochlorothiazide 25 mg PO BID 90 days spironolactone 12.5 mg (1/2 x 25 mg) PO DAILY HPI Comments Details: Titus is a 64-year-old male patient of Dr. Turner. He has a past medical history lymphedema, constipation, umbilical hernia, varicose veins of left lower extremity with inflammation status post radiofrequency ablation 03/31, peripheral artery disease, hypertension, obesity, and chronic venous stasis. He presents to the office today as a new patient for an elevated PSA. In discussion with the patient today he reports having followed up with his PCP at which time blood work was drawn and recommendations were made for urology referral due to elevated PSA. These results were reviewed with the patient today. PSAs are as follows: 01/29 3.3, 05/31 4.8 We discussed at length potential causes of elevated psa. He discusses his ongoing issues with his left legs as well as his blood pressure. He reports noting episodes of erectile dysfunction when taking his diuretics. He reports upon holding or discontinuation of diuretics he feels he has no issues obtaining and maintaining his erections. He also reports noting he does better with rectal stimulation. We discussed at length potential causes of erectile dysfunction. When asked he denies any bothersome urinary issues. We discussed redraw of PSA with no sex the night before, no caffeine morning of, and no heavy lifting 1-2 days prior. Discussed obtaining retroperitoneal ultrasound for further assessment evaluation. WAYNE performed smooth, no masses or nodules palpated. He denies any family history of prostate cancer. He otherwise offers no other issues or concerns at this time. [facility] Medical History Lymphedema Umbilical hernia Varicose veins of left lower extremity with inflammation PAD (peripheral artery disease) Essential hypertension Obesity Chronic venous stasis Hypertension Surgical History History of nasal surgery Hx of tonsillectomy Family History Mother High blood pressure Diabetes Father Diabetes High blood pressure Paternal Grandmother Thyroid disorder Maternal Grandfather Diabetes Paternal Grandfather Cancer Family/Other High blood pressure Diabetes Social History Household Members: Spouse Housing: Apartment Do you presently have visiting nurse or other home services: No Patient Tobacco Use Status: Never used Tobacco e-Cigarette/Vaping Use: Never Used service: No Current occupational status: employed 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 Cognitive needs: No Hearing needs: No Vision needs: No Review of Systems Const All systems reviewed & are unremarkable except as noted in HPI and below Eyes Reports no additional complaints ENT Reports no additional complaints Card Reports as per HPI Resp Reports no additional complaints GI Reports as per HPI Physical Exam Const General: cooperative, healthy appearing, comfortable, no acute distress, well developed, alert and awake Nutritional Appearance: obese Orientation/consciousness: patient oriented x3 Limitations: no limitations HEENT Head: Yes normal to inspection, Yes normocephalic and Yes atraumatic Ears: hearing grossly normal bilaterally Eyes General: appearance normal, both eyes and all related structures Neck Neck: Yes normal visual inspection and Yes trachea midline Chest Chest palpation & inspection: normal inspection of the chest Resp Effort & Inspection: normal respiratory effort and able to speak in complete sentences Cardio Rate: regular rate GI Inspection: Yes normal to inspection General: Yes no CVA tenderness Back/Spine/Pelvis Back: no CVA tenderness Skin Other: As per HPI Neuro General: patient oriented x3 Extrem Other: Bilateral lower leg edema left greater than right. Psych Appearance: grossly normal and well kempt Mental Status: mental status grossly normal Speech and movement: Normal speech and movement present and Clear speech present Affect: normal affect Attitude: cooperative Thought process: Normal thought process present Thought content: Normal thought content present Insight: Fair insight present (Psych) Judgement: Fair judgement present (Psych) Results AMB Urinalysis, Automated UA Leukoctes 0 Michael/uL Last Edit by Viddler on 08/07/24 14:41 UA Nitrite Last Edit by Viddler on 08/07/24 14:41 UA Urobilinogen 0.2 mg/dL Last Edit by Viddler on 08/07/24 14:41 UA Protein 0 mg/dL Last Edit by Viddler on 08/07/24 14:41 UA pH 6.0 Last Edit by [employer] on 08/07/24 14:41 UA Blood 10 Lan/uL Last Edit by Viddler on 08/07/24 14:41 UA Specific [place] 1.010 Last Edit by Demarcus Santiagoedgardo on 08/07/24 14:41 UA Ketone Negative Last Edit by [employer] Pamelaedg[employer] on 08/07/24 14:41 UA Bilirubin 0 mg/dL Last Edit by Demarcus Pamelaedgardo on 08/07/24 14:41 UA Glucose 0 mg/dL Last Edit by Demarcus Pamelaedgardo on 08/07/24 14:41 Results Reviewed Results Reviewed: Laboratory Last Values Urine pH (Auto) 6.0 08/07/24 14:39 Specific [place] (Auto) 1.010 08/07/24 14:39 Urine Protein (Auto) 0 mg/dL 08/07/24 14:39 Glucose (UA)(Auto) 0 mg/dL 08/07/24 14:39 Urine Ketones (Auto) Negative 08/07/24 14:39 Urine Blood (Auto) 10 Lan/uL 08/07/24 14:39 Urine Bilirubin (Auto) 0 mg/dL 08/07/24 14:39 Urine Urobilinogen (Auto) 0.2 mg/dL 08/07/24 14:39 Leukocyte Esterase (Auto) 0 Michael/uL 08/07/24 14:39 Assessment & Plan Assessment & Plan (1) Elevated PSA: Code(s): R97.20 - Elevated prostate specific antigen [PSA] Category: Medical Plan In office urinalysis results reviewed with the patient today; as noted above. Recent PSA results reviewed with the patient today; as noted above. Discussed at length potential causes of elevated PSA. Will obtain redraw of PSA. Will obtain retroperitoneal ultrasound for further assessment evaluation. WAYNE performed. Discussed lifestyle modifications to assist with ED as well as overall health and well-being. Follow-up in 1-3 months with imaging and labs to be completed prior; or sooner with any issues, concerns, and or questions. Orders: Orders US retroperitoneal comp Today R97.20 - Elevated prostate specific antigen [PSA] AMB Urinalysis Automated Today Z13.9 - Encounter for screening, unspecified PSA,Total (Free>4and<10) Today R97.20 - Elevated prostate specific antigen [PSA] Patient Instructions: The patient had an opportunity to ask questions regarding the treatment plan. All questions were answered. Physical exam, labs, and imaging were discussed and reviewed in detail. As well as risks, benefits, and discussion of treatment choices. No major barriers to understanding were identified. The patient expressed understanding and agreement with the above treatment plan. The patient was made aware they should contact our office by phone for worsening of their current condition, the appearance of new symptoms, or with any questions or concerns. Compliance is encouraged with any medications and follow up testing that is ordered. It is a privilege to be allowed the opportunity to participate in? your urological care.? Again, if you have any questions or concerns If you have any questions or concerns please do not hesitate to contact me. The office is [phone]. This note is constructed using voice recognition software. While every effort has been made to ensure accuracy lead consultant errors may have been included. Yours sincerely, BLANCHE Flores Coding Level of Care Code New Pt Level 3 (63083) Diagnoses Elevated PSA R97.20
== END 2024-08-07 14:42 | disposition home or self-care (01) ==
PROVIDERS: PCP Family Medicine; Visit Provider Nurse Practitioner Family
DX: R97.20 Elevated prostate specific antigen [PSA] (principal); Z13.9 Encounter for screening, unspecified
CPT/HCPCS: 99203

== ENCOUNTER 2024-09-06 09:46 | Outpatient (REF) | payer BC, SELFPAY | END 2024-09-06 09:47 | disposition home or self-care (01) | LOC: HO.US 09:46 | PROVIDERS: PCP Family Medicine; Visit Provider Nurse Practitioner Family | DX: R97.20 Elevated prostate specific antigen [PSA] (principal) | CPT/HCPCS: 76770 ==

== ENCOUNTER 2024-09-21 09:29 | Outpatient (REF) | payer BC, SELFPAY ==
[2024-09-21 11:51] LABS: PSA,Total (Free>4and<10) 3.12 ng/mL (0.00-4.00)
[2024-09-21 11:52] LABS: Prostate Specific Antigen Scr 3.32 ng/mL (<0.05-4.0)
== END 2024-09-21 09:30 | disposition home or self-care (01) ==
LOC: HO.WFDLDS 09:29
PROVIDERS: Nurse Practitioner Family; Visit Provider Family Medicine
DX: R97.20 Elevated prostate specific antigen [PSA] (principal); Z12.5 Encounter for screening for malignant neoplasm of prostate
CPT/HCPCS: 36415; 84153

== ENCOUNTER 2024-09-25 14:19 | Outpatient (AMB) | payer BC, SELFPAY ==
--- NOTE | 2024-09-25 14:33 | MHC.PC.OV ---
Vital Signs 09/25/24 14:38 Height 5 ft 9 in Weight 320 lb BMI 47.3 BP 149/75 H Blood Pressure Location Lt brachial Position Sitting Respiration 16 Pulse 68 Pulse Source Pulse Oximeter Temp 98.6 F Temp Source Temporal Artery Scan Pulse Oximetry (%) 96 Oxygen Delivery Method Room Air Intake Visit Reasons: f/u hypertension, chronic conditions nakita 07/24 Intake Note: f/u htn DM Allergies amlodipine [AMLODIPINE] Allergy (Intermediate, Verified 09/25/24 14:36) MUSCLE WEAKNESS, muscle aches, muscle aches doxazosin Allergy (Mild, Verified 09/25/24 14:36) muscle and joint pain hydrochlorothiazide [From Dutoprol] Allergy (Mild, Verified 09/25/24 14:36) joint and muscle pain lisinopril [LISINOPRIL] Allergy (Mild, Verified 09/25/24 14:36) COUGH metoprolol [From Dutoprol] Allergy (Mild, Verified 09/25/24 14:36) joint and muscle pain valsartan Allergy (Verified 09/25/24 14:36) Muscle cramps atenolol Adverse Reaction (Mild, Verified 09/25/24 14:36) muscle and joint pain chlorthalidone Adverse Reaction (Mild, Verified 09/25/24 14:36) muscle pain losartan Adverse Reaction (Mild, Verified 09/25/24 14:36) muscle pain all over body olmesartan [From Benicar] Adverse Reaction (Mild, Verified 09/25/24 14:36) joint and muscle pain candesartan and celexetil Adverse Reaction (Mild, Uncoded 08/07/24 15:17) muscle pain over all of body Medication List - Last Reconciled 09/25/24 by Jack Turner MD ammonium lactate 12% 1 appl See Protocol topical BID aspirin 81 mg PO DAILY bismuth tribrom-petrolatum,wh 5 X 9 (Xeroform Petrolatum Dressing) As directed blood pressure monitor Automatic, Digital. Dx: I10. Daily As directed, 999 days/lifetime. XL Cuff comp.stocking,thigh,long,x-lrg 30-40?mmHg. Use?Daily?As directed, 90 days furosemide 40 mg PO DAILY 30 days hydrochlorothiazide 25 mg PO BID 90 days spironolactone 12.5 mg (1/2 x 25 mg) PO DAILY Tobacco use date assessed: 02/21/24 Dental Screening Dental Screen Date: 01/12/24 HPI f/u hypertension, chronic conditions nakita 07/24 HPI Details 64 y/o male presents to f/u hypertension, diet controlled diabetes, chronic conditions. Also following anemia and LE edema. He is followed by vascular. Had given him a script for compression stockings and he is on furosemide 40mg. Prior A1c 6.5%. A1c today 09/25/24 is Has complaints of ?hernia. BP today 149/75, 68p. He is on hydrochloroothiazide 25mg b.i.d, spironolactone 12.5mg daily. Reports some ED. [facility] Medical History Lymphedema Umbilical hernia Varicose veins of left lower extremity with inflammation PAD (peripheral artery disease) Essential hypertension Obesity Chronic venous stasis Hypertension Surgical History History of nasal surgery Hx of tonsillectomy Family History Mother High blood pressure Diabetes Father Diabetes High blood pressure Paternal Grandmother Thyroid disorder Maternal Grandfather Diabetes Paternal Grandfather Cancer Family/Other High blood pressure Diabetes Social History Household Members: Spouse Housing: Apartment Do you presently have visiting nurse or other home services: No Patient Tobacco Use Status: Never used Tobacco e-Cigarette/Vaping Use: Never Used service: No Current occupational status: employed 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 1. Little interest or pleasure in doing things: not at all 2. Feeling down, depressed, or hopeless: nearly every day 3. Trouble falling or staying asleep, or sleeping too much: not at all 4. Feeling tired or having little energy: nearly every day 5. Poor appetite or overeating: not at all 6. Feeling bad about yourself - or that you are a failure or have let yourself or your family down: not at all 7. Trouble concentrating on things, such as reading the newspaper or watching television: not at all 8. Moving or speaking so slowly that other people could have noticed. Or the opposite - being so fidgety or restless that you have been moving around a lot more than usual: not at all 9. Thoughts that you would be better off or of hurting yourself in some way: not at all Total score: 6 Source: Developed by Drs. Curtis Montes, Jocelynn Jefferson, Moshe Ochoa and colleagues, with an educational sher from [employer]. Thrive Questionnaire Date Thrive assessed: 12/29/23 I am a: Patient What is your living situation today?: I have a steady place to live Within the past 12 months, did the food you bought not last and you didn't have the money to get more?: I choose not to answer this question Within the past 12 months, did you worry whether your food would run out before you got money to buy more?: I choose not to answer this question Do you have trouble paying for medicines?: No Do you have trouble getting transportation to medical appointments?: No Do you have trouble paying your heating and electricity bill?: No Do you have trouble taking care of your child, family member or friend?: Yes Do you have trouble with day-to-day activities such as bathing, preparing meals, shopping, managing finances, etc.?: Yes Are you currently unemployed and looking for a job?: No Are you interested in more education?: No Please select the resources that you would like help with: None Currently or been in a relationship where the following occur: No concerns reported THRIVE Score: 0 AUDIT C Alcohol Use Questionnaire (AUDIT-C) 1. How often do you have a drink containing alcohol?: Monthly or less 2. How many drinks containing alcohol do you have on a typical day when you are drinking?: 1 or 2 3. How often do you have six or more drinks on one occasion?: Never Total Score: 1 KISHORE-7 AMB Questionnaire KISHORE-7 Date KISHORE - 7 assessed: 01/12/24 Feeling nervous, anxious, or on edge: 0 = Not at all Not being able to stop or control worryin = Not at all Worrying too much about different things: 1 = Several days Trouble relaxin = Several days Being so restless that it is hard to sit still: 0 = Not at all Becoming easily annoyed or irritable: 0 = Not at all Feeling afraid as if something awful might happen: 0 = Not at all Total KISHORE-7 score (0-4 normal; 5-9 mild; 10-14 moderate; 15-21 severe): 2 Source: Developed by Drs. Curtis Montes, Jocelynn Jefferson, Moshe Ochoa and colleagues, with an educational sher from [employer]. Review of Systems Const Denies chills, Denies fatigue, Denies fever(s), Denies headache(s) and Denies weakness ENT Denies dizziness and Denies headache(s) Card Denies dyspnea Resp Denies cough, Denies dyspnea, Denies wheezing and Denies other (shortness of breath) Musc Denies numbness and Denies tingling Neuro Denies dizziness, Denies headache(s), Denies numbness, Denies tingling and Denies weakness Psych Denies anxiety and Denies depression Endo Denies fatigue Aller/Immun Denies wheezing Physical exam (Primary Care) Vital Signs: Last Vital Signs Temp 98.6 F 09/25/24 14:38 Pulse 68 09/25/24 14:38 Resp 16 09/25/24 14:38 BP 149/75 H 09/25/24 14:38 Pulse Ox 96 09/25/24 14:38 Oxygen Delivery Method Room Air 09/25/24 14:38 BMI result Body Mass Index 47.3 Tobacco/Smoking Status: Tobacco use Status Tobacco use date assessed 02/21/24 09/25/24 14:40 Patient Tobacco Use Status Never used Tobacco 09/25/24 14:40 e-Cigarette/Vaping Use Never Used 09/25/24 14:40 PHQ-9: PHQ-9 Score PHQ-9: Total score 6 09/25/24 14:47 Thrive Assessment: Date of Thrive Assessment Date Thrive assessed 12/29/23 09/25/24 14:40 Currently or been in a relationship where the following occur: No concerns reported Const General: well developed; No acute distress Nutritional Appearance: obese morbidly obese Orientation/consciousness: patient oriented x3 HENMT Head: Yes normocephalic and Yes atraumatic Eyes General: appearance normal, both eyes and all related structures Pupils: Equal, round and reactive pupils present EOM: EOMs intact bilaterally Resp Effort & Inspection: normal respiratory effort Neuro General: patient oriented x3 and gait normal Cranial nerves: Yes Equal, round and reactive pupils present Extrem Other: Lymphedema b/L lower extremities, L worse than R. Psych Affect: normal affect Coding Level of Care Code Est Pt Level 4 (38844) Diagnoses Essential hypertension I10 Lower extremity edema R60.0 Chronic systolic congestive heart failure I50.22 Heart failure chronicity: chronic Heart failure type: systolic Diabetes E11.9 Erectile dysfunction N52.9 Umbilical hernia without obstruction and without gangrene K42.9 Obstruction and gangrene presence: without obstruction or gangrene Assessment & Plan Assessment & Plan (1) Essential hypertension: Code(s): I10 - Essential (primary) hypertension Category: Medical Plan: Blood?pressure?is?too?high Patient?wants?to?stop?his?medications?as?they?are?giving?him?difficulties?with?feeling?lightheaded?and?or?erectile?dysfunction. Dizziness?seems?to?be?resolved?by?adjusting?when?he?takes?medications?and?he?says?he?is?starting?to?get?use?to?it. I?did?not?change?his?medications?today Encouraged?him?to?keep?working?on?lifestyle?changes?and?watch?salt?and?sodium?in?his?diet.??Also?encouraged?him?to?try?to?get?regular?exercise. (2) Lower extremity edema: Code(s): R60.0 - Localized edema Category: Medical Plan: Patient?has?lymphedema?in?bilateral?lower?extremities,?left?worse?than?right.??He?was?followed?by??who?is?trying?to?get?pneumatic?compression?devices?for?him. Encouraged?him?to?follow-up?with?. Will?ask?the?office?staff?to?look?in?to?helping?with?getting?compression?devices. Elevate?legs?and?watch?salt/sodium?diet (3) CHF (congestive heart failure): Code(s): I50.9 - Heart failure, unspecified Category: Medical Qualifiers: Heart failure chronicity: chronic Heart failure type: systolic Qualified Code(s): I50.22 - Chronic systolic (congestive) heart failure Plan: Echocardiogram?showed?mild?right?ventricular?enlargement.??Otherwise?fairly?unremarkable He?is?on?furosemide Follow-up?with?Cardiology?as?recommended (4) Diabetes: Code(s): E11.9 - Type 2 diabetes mellitus without complications Category: Medical Plan: A1c?6.5%.??Stable Continue?working?on?diet?low?in?sugars?and?starches.??Encouraged?exercise?and?weight?loss (5) Erectile dysfunction: Code(s): N52.9 - Male erectile dysfunction, unspecified Category: Medical Plan: Patient?has?complaints?of?erectile?dysfunction.??He?tends?to?feel?that?his?blood?pressure?medications?are?the?cause. Recommended?he?try?to?tolerate?blood?pressure?medications?as?his?blood?pressure?is?already?not?well?controlled Will?check?testosterone?level He?also?already?has?a?follow-up?appointment?with?Urology?and?I?encouraged?this Will?follow-up?1?month (6) Umbilical hernia: Code(s): K42.9 - Umbilical hernia without obstruction or gangrene Category: Medical Qualifiers: Obstruction and gangrene presence: without obstruction or gangrene Qualified Code(s): K42.9 - Umbilical hernia without obstruction or gangrene Plan: Large?incarcerated?umbilical?hernia.??No?apparent?strangulation?at?this?time.??He?had?seen?general?surgery?and?recommended?intervention?but?patient?has?refused?this. Reiterated?to?patient?that?this?could?become?emergency. Reviewed?S/S incarcerated?hernia?strangulation. Encouraged?patient?to?go?to?the?emergency?department?if?he?has?these?symptoms. Orders: Orders TSH reflex Free T4 Today N52.9 - Male erectile dysfunction, unspecified, Z00.00 - Encounter for general adult medical examination without abnormal findings Testosterone, Free/Total Today N52.9 - Male erectile dysfunction, unspecified Comprehensive [place]. Panel Fast Today N52.9 - Male erectile dysfunction, unspecified, Z00.00 - Encounter for general adult medical examination without abnormal findings Microalbumin, Random (w Creat) Today E11.9 - Type 2 diabetes mellitus without complications, I10 - Essential (primary) hypertension Complete Blood Count Auto Diff Today N52.9 - Male erectile dysfunction, unspecified, Z00.00 - Encounter for general adult medical examination without abnormal findings
[2024-09-25 14:38] VITALS: BP 149/75; PULSE 68; RESP 16; TEMP 37; O2SAT 96; BMI 47.3
== END 2024-09-25 15:40 | disposition home or self-care (01) ==
PROVIDERS: PCP Family Medicine; Visit Provider Family Medicine
DX: I10 Essential (primary) hypertension (principal); R60.0 Localized edema; I50.22 Chronic systolic (congestive) heart failure; E11.9 Type 2 diabetes mellitus without complications; N52.9 Male erectile dysfunction, unspecified; K42.9 Umbilical hernia without obstruction or gangrene

== ENCOUNTER → 2024-09-25 14:19 | Outpatient (BNVA) | payer BC, SELFPAY | PROVIDERS: PCP Family Medicine; Visit Provider Family Medicine | DX: I11.0 Hypertensive heart disease with heart failure (principal); I50.22 Chronic systolic (congestive) heart failure; R60.0 Localized edema; E11.9 Type 2 diabetes mellitus without complications; N52.9 Male erectile dysfunction, unspecified; K42.9 Umbilical hernia without obstruction or gangrene | CPT/HCPCS: 83036; 96127 ==

== ENCOUNTER 2024-10-02 11:32 | Outpatient (AMB) | payer BC, SELFPAY ==
--- NOTE | 2024-10-02 11:40 | A.OFFVIS_ITS ---
Intake Visit Reasons: 3 month follow up/ PSA(set) Intake Note: Patient presents today for follow up on: elevated psa, ultrasound and psa lab results Imaging Completed: 09/06/34 PSA: 3.32 Urology Medications: none Blood Thinner: aspirin Operations And Maintenance Specialist Required: No Accompanied by: Self / Same As Patient Allergies amlodipine [AMLODIPINE] Allergy (Intermediate, Verified 10/02/24 12:59) MUSCLE WEAKNESS, muscle aches, muscle aches doxazosin Allergy (Mild, Verified 10/02/24 12:59) muscle and joint pain hydrochlorothiazide [From Dutoprol] Allergy (Mild, Verified 10/02/24 12:59) joint and muscle pain lisinopril [LISINOPRIL] Allergy (Mild, Verified 10/02/24 12:59) COUGH metoprolol [From Dutoprol] Allergy (Mild, Verified 10/02/24 12:59) joint and muscle pain valsartan Allergy (Verified 10/02/24 12:59) Muscle cramps atenolol Adverse Reaction (Mild, Verified 10/02/24 12:59) muscle and joint pain chlorthalidone Adverse Reaction (Mild, Verified 10/02/24 12:59) muscle pain losartan Adverse Reaction (Mild, Verified 10/02/24 12:59) muscle pain all over body olmesartan [From Benicar] Adverse Reaction (Mild, Verified 10/02/24 12:59) joint and muscle pain candesartan and celexetil Adverse Reaction (Mild, Uncoded 10/02/24 12:59) muscle pain over all of body Medication List - Last Reconciled 10/02/24 by ROLANDA Flores-ABDIRAHMAN ammonium lactate 12% 1 appl See Protocol topical BID aspirin 81 mg PO DAILY bismuth tribrom-petrolatum,wh 5 X 9 (Xeroform Petrolatum Dressing) As directed blood pressure monitor Automatic, Digital. Dx: I10. Daily As directed, 999 days/lifetime. XL Cuff comp.stocking,thigh,long,x-lrg 30-40?mmHg. Use?Daily?As directed, 90 days furosemide 40 mg PO DAILY 30 days hydrochlorothiazide 25 mg PO BID 90 days spironolactone 12.5 mg (1/2 x 25 mg) PO DAILY HPI Comments Details: Titus is a 64-year-old male patient of Dr. Turner. He has a past medical history lymphedema, constipation, umbilical hernia, varicose veins of left lower extremity with inflammation status post radiofrequency ablation 03/31, peripheral artery disease, hypertension, obesity, and chronic venous stasis. He presents to the office today for follow-up. Of note, patient was seen approximately 2 months ago as a new patient for an elevated PSA at which time a retroperitoneal ultrasound and redraw of PSA were ordered for further assessment evaluation. These results were reviewed with the patient today..... PSAs are as follows: 01/29 3.3, 05/31 4.8, 10/01 3.1 We discussed at length potential causes of elevated PSA as well as drop in PSA. We discussed continuation of surveillance monitoring of PSA. He otherwise denies any bothersome urinary issues. He reports at times he does experience issues with erectile dysfunction and or lower urinary tract symptoms however he feels he is managing these symptoms independently. He discusses his reluctant see the medications as many medications have side effects that caused other issues. WAYNE at last office visit noted smooth, no masses or nodules palpated. He denies any family history of prostate cancer. He otherwise offers no other issues or concerns at this time. [facility] Medical History Enlarged prostate Lymphedema Umbilical hernia Varicose veins of left lower extremity with inflammation PAD (peripheral artery disease) Essential hypertension Obesity Chronic venous stasis Hypertension Surgical History History of nasal surgery Hx of tonsillectomy Family History Mother High blood pressure Diabetes Father Diabetes High blood pressure Paternal Grandmother Thyroid disorder Maternal Grandfather Diabetes Paternal Grandfather Cancer Family/Other High blood pressure Diabetes Social History Household Members: Spouse Housing: Apartment Do you presently have visiting nurse or other home services: No Patient Tobacco Use Status: Never used Tobacco e-Cigarette/Vaping Use: Never Used service: No Current occupational status: employed 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 Cognitive needs: No Hearing needs: No Vision needs: No Review of Systems Const All systems reviewed & are unremarkable except as noted in HPI and below Eyes Reports no additional complaints ENT Reports no additional complaints Card Reports as per HPI Resp Reports no additional complaints GI Reports as per HPI Physical Exam Const General: cooperative, healthy appearing, comfortable, no acute distress, well developed, alert and awake Nutritional Appearance: obese Orientation/consciousness: patient oriented x3 Limitations: no limitations HEENT Head: Yes normal to inspection, Yes normocephalic and Yes atraumatic Ears: hearing grossly normal bilaterally Eyes General: appearance normal, both eyes and all related structures Neck Neck: Yes normal visual inspection and Yes trachea midline Chest Chest palpation & inspection: normal inspection of the chest Resp Effort & Inspection: normal respiratory effort and able to speak in complete sentences Cardio Rate: regular rate GI Inspection: Yes normal to inspection General: Yes no CVA tenderness Back/Spine/Pelvis Back: no CVA tenderness Skin Other: As per HPI Neuro General: patient oriented x3 Extrem Other: Bilateral lower leg edema left greater than right. Psych Appearance: grossly normal and well kempt Mental Status: mental status grossly normal Speech and movement: Normal speech and movement present and Clear speech present Affect: normal affect Attitude: cooperative Thought process: Normal thought process present Thought content: Normal thought content present Insight: Fair insight present (Psych) Judgement: Fair judgement present (Psych) Results AMB Urinalysis, Automated UA Leukoctes 0 Michael/uL Last Edit by [employer]maribell Davis on 10/02/24 12:08 UA Nitrite Last Edit by Assisteraedgardo on 10/02/24 12:08 UA Urobilinogen 0.2 mg/dL Last Edit by [employer] Susan on 10/02/24 12:08 UA Protein 15 mg/dL Last Edit by [employer], Incmaribell Davis on 10/02/24 12:08 UA pH 6.0 Last Edit by [employer], Incm[employer]ell Davis on 10/02/24 12:08 UA Blood 10 Lan/uL Last Edit by [employer], Incm[employer]ell Davis on 10/02/24 12:08 UA Specific [place] 1.030 Last Edit by Demarcus Santiagoedgardo on 10/02/24 12:08 UA Ketone Negative Last Edit by Keanunatalimaribell Santiagoedgardo on 10/02/24 12:08 UA Bilirubin 0 mg/dL Last Edit by Samiamaribell Santiagoedgardo on 10/02/24 12:08 UA Glucose 0 mg/dL Last Edit by Demarcus Pamelaedgardo on 10/02/24 12:08 Results Reviewed Results Reviewed: Laboratory Last Values Urine pH (Auto) 6.0 10/02/24 12:07 Specific [place] (Auto) 1.030 10/02/24 12:07 Urine Protein (Auto) 15 mg/dL 10/02/24 12:07 Glucose (UA)(Auto) 0 mg/dL 10/02/24 12:07 Urine Ketones (Auto) Negative 10/02/24 12:07 Urine Blood (Auto) 10 Lan/uL 10/02/24 12:07 Urine Bilirubin (Auto) 0 mg/dL 10/02/24 12:07 Urine Urobilinogen (Auto) 0.2 mg/dL 10/02/24 12:07 Leukocyte Esterase (Auto) 0 Michael/uL 10/02/24 12:07 Assessment & Plan Assessment & Plan (1) Elevated PSA: Code(s): R97.20 - Elevated prostate specific antigen [PSA] Category: Medical (2) Enlarged prostate: Code(s): N40.0 - Benign prostatic hyperplasia without lower urinary tract symptoms Category: Medical Plan In office urinalysis results reviewed with the patient today; as noted above. He reports be happy with current voiding parameters. We discussed recent PSA and retroperitoneal ultrasound results; as noted above. Will continue with surveillance monitoring of PSA. We discussed potential causes of elevated PSA as well as decrease in PSA upon redraw. Will obtain PSA in 6 months. Follow-up in 6 months with PSA and PVR; or sooner with any issues, concerns, and or questions. Orders: Orders AMB Urinalysis Automated Today Z13.9 - Encounter for screening, unspecified Prostate Specific Antigen 6 Months N40.0 - Benign prostatic hyperplasia without lower urinary tract symptoms, R97.20 - Elevated prostate specific antigen [PSA] Patient Instructions: The patient had an opportunity to ask questions regarding the treatment plan. All questions were answered. Physical exam, labs, and imaging were discussed and reviewed in detail. As well as risks, benefits, and discussion of treatment cho ices. No major barriers to understanding were identified. The patient expressed understanding and agreement with the above treatment plan. The patient was made aware they should contact our office by phone for worsening of their current condition, the appearance of new symptoms, or with any questions or concerns. Compliance is encouraged with any medications and follow up testing that is ordered. It is a privilege to be allowed the opportunity to participate in? your urological care.? Again, if you have any questions or concerns If you have any questions or concerns please do not hesitate to contact me. The office is [phone]. This note is constructed using voice recognition software. While every effort has been made to ensure accuracy car storer errors may have been included. Yours sincerely, BLANCHE Flores Coding Level of Care Code Est Pt Level 3 (72071) Diagnoses Elevated PSA R97.20 Enlarged prostate N40.0
== END 2024-10-02 12:21 | disposition home or self-care (01) ==
PROVIDERS: PCP Family Medicine; Visit Provider Nurse Practitioner Family
DX: Z13.9 Encounter for screening, unspecified (principal)

== ENCOUNTER → 2024-10-02 11:32 | Outpatient (BNVA) | payer BC, SELFPAY | PROVIDERS: PCP Family Medicine; Visit Provider Nurse Practitioner Family | DX: R97.20 Elevated prostate specific antigen [PSA] (principal); N40.0 Benign prostatic hyperplasia without lower urinary tract symptoms; N28.1 Cyst of kidney, acquired | CPT/HCPCS: 81003 ==

== ENCOUNTER 2024-10-18 07:39 | Outpatient (REF) | payer BC, SELFPAY ==
[2024-10-18 11:20] LABS: MANUAL DIFF FLAG NO
[2024-10-18 11:26] LABS: Basophils Absolute Auto 0.1 X10*3/uL (0.0-0.2); Basophils Percent Auto 0.7 % (0-2); Eosinophils Absolute Auto 0.3 X10*3/uL (0.0-0.4); Eosinophils Percent Auto 3.5 % (0-4); Hematocrit 35.6 % (42.0-52.0); Hemoglobin 11.6 g/dl (14.0-18.0); Imm Gran Abs Auto 0.02 X10*3/uL (0.00-0.03); Imm Gran Pct Auto 0.3 % (0.0-0.4); Lymphocytes Absolute Auto 1.7 X10*3/uL (1.2-4.9); Lymphocytes Percent Auto 22.5 % (20-40); Mean Corpuscular HGB Conc 32.6 g/dl (31.0-36.0); Mean Corpuscular Hemoglobin 29.1 pg (27.0-33.0); Mean Corpuscular Volume 89.4 fL (80.0-98.0); Mean Platelet Volume 10.5 fL (9.4-12.4); Monocytes Absolute Auto 0.7 X10*3/uL (0.1-1.2); Monocytes Percent Auto 9.1 % (2-11); Neutrophils Absolute Auto 4.7 x10*3/uL (2.0-8.3); Neutrophils Percent Auto 63.9 % (45-73); Platelet Count 297 X10*3/uL (160-400); Red Blood Count 3.98 X10*6/uL (4.60-5.80); Red Cell Distribution Width 13.2 % (11.0-16.0); White Blood Count 7.3 X10*3/uL (4.8-10.8)
[2024-10-18 11:39] LABS: Microalbum/Creatinine Ratio Ur 16.9 ug/mg cr (<30)
[2024-10-18 11:49] LABS: Alanine Aminotransferase 11 U/L (0-40); Albumin Level 3.4 g/dL (3.5-5.0); Alkaline Phosphatase 70 U/L (39-117); Anion Gap 9 (12-20); Aspartate Amino Transferase 25 U/L (5-37); Bilirubin Total 0.3 mg/dL (0.0-1.0); Blood Urea Nitrogen 19 mg/dL (9-16); Calcium 9.6 mg/dL (8.4-10.2); Carbon Dioxide 31 mmol/L (22-29); Chloride 103 mmol/L (96-108); Estimated Glomerular Filt Rate > 60; Glucose Fasting 141 mg/dL (60-99); Potassium 3.3 mmol/L (3.3-5.1); Sodium 140 mmol/L (135-145); Total Protein 7.7 g/dL (6.5-8.0)
[2024-10-18 12:03] LABS: TSH reflex Free T4 4.49 uIU/mL (0.32-4.0)
[2024-10-18 12:42] LABS: Free T4 (Free Thyroxine) 0.75 ng/dL (0.71-1.85)
[2024-10-23 23:42] LABS: Testosterone, Free 26.2 pg/mL (35.0-155.0); Testosterone, Total 155 ng/dL (250-1100)
== END 2024-10-18 07:40 | disposition home or self-care (01) ==
LOC: HO.WFDLDS 07:39
PROVIDERS: Visit Provider Family Medicine
DX: Z00.00 Encounter for general adult medical examination without abnormal findings (principal); N52.9 Male erectile dysfunction, unspecified; I10 Essential (primary) hypertension; E11.9 Type 2 diabetes mellitus without complications
CPT/HCPCS: 36415; 80053; 82043; 82570; 84402; 84403; 84439; 84443; 85025

== ENCOUNTER 2024-10-24 13:46 | Outpatient (AMB) | payer BC, SELFPAY ==
--- NOTE | 2024-10-24 14:03 | A.OFFPC_ITS ---
Vital Signs 10/24/24 14:10 Height 5 ft 9 in Weight 322 lb 4 oz BMI 47.6 BP 140/80 H Blood Pressure Location Lt brachial Position Sitting Respiration 16 Pulse 68 Pulse Source Pulse Oximeter Temp 98.1 F Temp Source Oral Pulse Oximetry (%) 97 Oxygen Delivery Method Room Air Intake Visit Reasons: f/u HTN, chronic conditions Intake Note: HTN and chronic condition follow up Allergies amlodipine [AMLODIPINE] Allergy (Intermediate, Verified 10/24/24 14:08) MUSCLE WEAKNESS, muscle aches, muscle aches doxazosin Allergy (Mild, Verified 10/24/24 14:08) muscle and joint pain hydrochlorothiazide [From Dutoprol] Allergy (Mild, Verified 10/24/24 14:08) joint and muscle pain lisinopril [LISINOPRIL] Allergy (Mild, Verified 10/24/24 14:08) COUGH metoprolol [From Dutoprol] Allergy (Mild, Verified 10/24/24 14:08) joint and muscle pain valsartan Allergy (Verified 10/24/24 14:08) Muscle cramps atenolol Adverse Reaction (Mild, Verified 10/24/24 14:08) muscle and joint pain chlorthalidone Adverse Reaction (Mild, Verified 10/24/24 14:08) muscle pain losartan Adverse Reaction (Mild, Verified 10/24/24 14:08) muscle pain all over body olmesartan [From Benicar] Adverse Reaction (Mild, Verified 10/24/24 14:08) joint and muscle pain candesartan and celexetil Adverse Reaction (Mild, Uncoded 10/02/24 12:59) muscle pain over all of body Tobacco use date assessed: 02/21/24 Dental Screening Dental Screen Date: 01/12/24 HPI f/u HTN, chronic conditions HPI Details 64 y/o male presents to f/u hypertension , chronic conditions. Labs drawn 10/18/24. Reviewed labs with pt. Mild anemia. Elevated TSH of 4.49. Low testosterone level at 155. Blood pressure today 140/80, 68p. He is on HCTZ 25mg b.i.d. A1c 6.5% 09/25/24. [facility] Medical History Enlarged prostate Lymphedema Umbilical hernia Varicose veins of left lower extremity with inflammation PAD (peripheral artery disease) Essential hypertension Obesity Chronic venous stasis Hypertension Surgical History History of nasal surgery Hx of tonsillectomy Family History Mother High blood pressure Diabetes Father Diabetes High blood pressure Paternal Grandmother Thyroid disorder Maternal Grandfather Diabetes Paternal Grandfather Cancer Family/Other High blood pressure Diabetes Social History Household Members: Spouse Housing: Apartment Do you presently have visiting nurse or other home services: No Patient Tobacco Use Status: Never used Tobacco e-Cigarette/Vaping Use: Never Used service: No Current occupational status: employed 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 Cognitive needs: No Hearing needs: No Vision needs: No Questionnaire Thrive Questionnaire Date Thrive assessed: 09/25/24 I am a: Patient What is your living situation today?: I have a steady place to live Within the past 12 months, did the food you bought not last and you didn't have the money to get more?: I choose not to answer this question Within the past 12 months, did you worry whether your food would run out before you got money to buy more?: I choose not to answer this question Do you have trouble paying for medicines?: No Do you have trouble getting transportation to medical appointments?: No Do you have trouble paying your heating and electricity bill?: No Do you have trouble taking care of your child, family member or friend?: Yes Do you have trouble with day-to-day activities such as bathing, preparing meals, shopping, managing finances, etc.?: Yes Are you currently unemployed and looking for a job?: No Are you interested in more education?: No Please select the resources that you would like help with: None Currently or been in a relationship where the following occur: No concerns reported THRIVE Score: 0 KISHORE-7 AMB Questionnaire KISHORE-7 Date KISHORE - 7 assessed: 01/12/24 Source: Developed by Drs. Curtis Montes, Jocelynn Jefferson, Moshe Ochoa and colleagues, with an educational sher from [employer]. Review of Systems Const Denies chills, Denies fatigue, Denies fever(s), Denies headache(s) and Denies weakness ENT Denies dizziness and Denies headache(s) Card Denies dyspnea Resp Denies cough, Denies dyspnea, Denies wheezing and Denies other (shortness of breath) Musc Denies numbness and Denies tingling Neuro Denies dizziness, Denies headache(s), Denies numbness, Denies tingling and Denies weakness Psych Denies anxiety and Denies depression Endo Denies fatigue Aller/Immun Denies wheezing Physical exam (Primary Care) Vital Signs: Last Vital Signs Temp 98.1 F 10/24/24 14:10 Pulse 68 10/24/24 14:10 Resp 16 10/24/24 14:10 BP 140/80 H 10/24/24 14:10 Pulse Ox 97 10/24/24 14:10 Oxygen Delivery Method Room Air 10/24/24 14:10 BMI result Body Mass Index 47.6 Tobacco/Smoking Status: Tobacco use Status Tobacco use date assessed 02/21/24 10/24/24 14:04 Patient Tobacco Use Status Never used Tobacco 10/24/24 14:04 e-Cigarette/Vaping Use Never Used 10/24/24 14:04 Thrive Assessment: Date of Thrive Assessment Date Thrive assessed 09/25/24 10/24/24 14:04 Currently or been in a relationship where the following occur: No concerns reported Const General: well developed; No acute distress Nutritional Appearance: well nourished Orientation/consciousness: patient oriented x3 HENMT Head: Yes normocephalic and Yes atraumatic Eyes General: appearance normal, both eyes and all related structures Pupils: Equal, round and reactive pupils present EOM: EOMs intact bilaterally Resp Effort & Inspection: normal respiratory effort Neuro General: patient oriented x3 and gait normal Cranial nerves: Yes Equal, round and reactive pupils present Psych Affect: normal affect Coding Level of Care Code Est Pt Level 4 (11258) Diagnoses Essential hypertension I10 Elevated TSH R79.89 Low testosterone R79.89 Mild anemia D64.9 Diabetes E11.9 Enlarged prostate N40.0 Venous stasis dermatitis I87.2 Assessment & Plan Assessment & Plan (1) Essential hypertension: Code(s): I10 - Essential (primary) hypertension Category: Medical Plan: Blood?pressure?is?still?elevated.??Patient?is?taking?hydrochlorothiazi de?25?mg?daily. Had?tried?spironolactone?but?patient?said?he?read?about?side?effects?in?disconti nue?this. He?has?declined?other?medications. Continue?hydrochlorothiazide?as?prescribed Work?at?a?diet?lower?in?salt/sodium Work?at?weight?loss (2) Elevated TSH: Code(s): R79.89 - Other specified abnormal findings of blood chemistry Category: Medical Plan: Will?recheck?thyroid?hormone?levels (3) Low testosterone: Code(s): R79.89 - Other specified abnormal findings of blood chemistry Category: Medical Plan: Low?testosterone?levels,?ED?and?fatigue. Referred?to?endocrinology (4) Mild anemia: Code(s): D64.9 - Anemia, unspecified Category: Medical Plan: Unclear?cause Will?repeat?CBC?in?addition?lab?work?to?evaluate?further (5) Diabetes: Code(s): E11.9 - Type 2 diabetes mellitus without complications Category: Medical Plan: A1c?6.5%.??Diabetes. Will?trial?Mounjaro?which?patient?would?like?to?used?try?to?lose?weight?as?well Risks/benefits?discussed (6) Enlarged prostate: Code(s): N40.0 - Benign prostatic hyperplasia without lower urinary tract symptoms Category: Medical Plan: Now?followed?by?Urology Stable (7) Venous stasis dermatitis: Code(s): I87.2 - Venous insufficiency (chronic) (peripheral) Category: Medical Plan: Significant?venous?stasis?dermatitis?and?patient?has?rather ?severe?lower?extremity?edema/lymphedema Now?has?pneumatic?devices?though?he?says?the?right?side?is?broken.??He?is?waitin g?hair?as?the?devices?still?under?warranty. Continue?wrapping?legs?with?Jerson?bandages.??His??performs?this?for?him Will?give?a?script?for?urea?foam?significant?dermatitis Orders: Orders Complete Blood Count Auto Diff Today D64.9 - Anemia, unspecified, Z00.00 - Encounter for general adult medical examination without abnormal findings Free T4 (Free Thyroxine) Today E03.9 - Hypothyroidism, unspecified Triiodothyronine T3 Total Today E03.9 - Hypothyroidism, unspecified Thyroid Stimulating Hormone Today E03.9 - Hypothyroidism, unspecified IRON PROFILE Today D64.9 - Anemia, unspecified Vitamin B12 and Folate Today D64.9 - Anemia, unspecified, E53.8 - Deficiency of other specified B group vitamins Reticulocyte Count Today D64.9 - Anemia, unspecified Ferritin Today D64.9 - Anemia, unspecified Referrals Endocrinology Referral R79.89 - Other specified abnormal findings of blood chemistry Medications: New urea 20% 1 appl topical BID 30 days 100 grams 2RF I87.2 - Venous insufficiency (chronic) (peripheral) tirzepatide (Mounjaro) for 4 weeks 2.5 mg (0.5 mL) subcut QWEEK 28 days 2 mL 3RF E11.9 - Type 2 diabetes mellitus without complications Changed From hydrochlorothiazide Morning and early afternoon. Avoid too close to bedtime. 25 mg PO BID 90 days 180 tabs 1RF To hydrochlorothiazide Morning and early afternoon. Avoid too close to bedtime. 25 mg PO DAILY 90 days 90 tabs 2RF
[2024-10-24 14:10] VITALS: BP 140/80; PULSE 68; RESP 16; TEMP 36.7; O2SAT 97; BMI 47.6
== END 2024-10-24 14:59 | disposition home or self-care (01) ==
PROVIDERS: PCP Family Medicine; Visit Provider Family Medicine
DX: I10 Essential (primary) hypertension (principal); R79.89 Other specified abnormal findings of blood chemistry; D64.9 Anemia, unspecified; E11.9 Type 2 diabetes mellitus without complications; N40.0 Benign prostatic hyperplasia without lower urinary tract symptoms; I87.2 Venous insufficiency (chronic) (peripheral)

== ENCOUNTER → 2024-10-24 13:46 | Outpatient (BNVA) | payer BC, SELFPAY | PROVIDERS: PCP Family Medicine; Visit Provider Family Medicine ==

== ENCOUNTER 2024-11-13 15:12 | Outpatient (AMB) | payer BC, SELFPAY ==
--- NOTE | 2024-11-13 15:13 | A.OFFVIS_ITS ---
Vital Signs 11/13/24 15:19 Height 5 ft 9 in Weight 320 lb 1.779 oz BMI 47.3 BP 144/82 H Blood Pressure Location Rt brachial Position Sitting Pulse 92 Pulse Source Pulse Oximeter Intake Visit Reasons: Other specified abnormal findings of blood chem Intake Note: New patient internally referred by PCP for Low Testosterone. Summer [employer] Associate Required: No Accompanied by: Self / Same As Patient Allergies amlodipine [AMLODIPINE] Allergy (Intermediate, Verified 11/13/24 15:19) MUSCLE WEAKNESS, muscle aches, muscle aches doxazosin Allergy (Mild, Verified 11/13/24 15:19) muscle and joint pain hydrochlorothiazide [From Dutoprol] Allergy (Mild, Verified 11/13/24 15:19) joint and muscle pain lisinopril [LISINOPRIL] Allergy (Mild, Verified 11/13/24 15:19) COUGH metoprolol [From Dutoprol] Allergy (Mild, Verified 11/13/24 15:19) joint and muscle pain valsartan Allergy (Verified 11/13/24 15:19) Muscle cramps atenolol Adverse Reaction (Mild, Verified 11/13/24 15:19) muscle and joint pain chlorthalidone Adverse Reaction (Mild, Verified 11/13/24 15:19) muscle pain losartan Adverse Reaction (Mild, Verified 11/13/24 15:19) muscle pain all over body olmesartan [From Benicar] Adverse Reaction (Mild, Verified 11/13/24 15:19) joint and muscle pain candesartan and celexetil Adverse Reaction (Mild, Uncoded 11/13/24 15:19) muscle pain over all of body HPI Comments Details: 64 YO Male with PMHx CHF and venous insufficency who is seen in consultation at the request of his PCP for Hypogonadism. First diagnosed with Hypogonadism with labs on 10/18/2024 revealing 155/ free testo of 26.2 . Labs 5-6 yrs ago testo was normal Was not started on Testosterone supplementation Not Currently using testosterone. Currently not achieving spontaneous am erections, but able to achieve erection when desired. Reports low libido. Not Decreased facial hair and shaving frequency. Denies any change in size or shape of testicles. Denies penile discharge or scrotal tenderness. Denies any history of mumps orchitis. Denies any head trauma. Denies history of JULIETH. with children 1 child who were conceived spontaneously. Sense of smell intact. Denies headache or visual changes, gynecomastia or galactorrhea. Denies orthostatic symptoms, weight loss. Denies change in size of hands or feet. Denies hair loss, weight gain, cold intolerance. History of DVT or PE: Not actively trying to father a child Labs: PSA CBC [facility] Medical History Enlarged prostate Lymphedema Umbilical hernia Varicose veins of left lower extremity with inflammation PAD (peripheral artery disease) Essential hypertension Obesity Chronic venous stasis Hypertension Surgical History History of nasal surgery Hx of tonsillectomy Family History Mother High blood pressure Diabetes Father Diabetes High blood pressure Paternal Grandmother Thyroid disorder Maternal Grandfather Diabetes Paternal Grandfather Cancer Family/Other High blood pressure Diabetes Social History Household Members: Spouse Housing: Apartment Do you presently have visiting nurse or other home services: No Patient Tobacco Use Status: Never used Tobacco e-Cigarette/Vaping Use: Never Used service: No Current occupational status: employed 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 Neck exam reveals nl thyroid about 15 gms. Chest exam reveals absence of gynecomastia. Lungs CTA. Heart is S1 S2 Reg R/R. -M/R/G. Abdominal exam is benign. Muscle strength is 5/5 proximally. Examination of genitalia reveals nl size pthalus . Testes are of nl size and consistency. There is Alex Stage V Hair development. There is 4+ edema present with status dermatitis in the lower extremities Assessment & Plan Assessment & Plan (1) Low testosterone: Code(s): R79.89 - Other specified abnormal findings of blood chemistry Category: Medical Plan: This is a 64-year-old white male determined to have low testosterone levels. Primary versus secondary hypogonadism? Plan is to recheck testosterone, LH, FSH. Further workup based on the above. I am a bit concerned about starting testosterone in this patient considering the history of fluid overload and CHF as well as venous insufficiency because of the risk of exacerbating CHF and/or DVT and will discuss this with patient Orders: Orders Testosterone, Free/Total Today R79.89 - Other specified abnormal findings of blood chemistry Lutenizing Hormone Today R79.89 - Other specified abnormal findings of blood chemistry Follicle Stimulating Hormone Today R79.89 - Other specified abnormal findings of blood chemistry Coding Level of Care Code New Pt Level 4 (83556) Diagnoses Low testosterone R79.89
[2024-11-13 15:19] VITALS: BP 144/82; PULSE 92; BMI 47.3
== END 2024-11-13 16:39 | disposition home or self-care (01) ==
PROVIDERS: PCP Family Medicine; Visit Provider Internal Medicine Endocrinology, Diabetes & Metabolism
DX: R79.89 Other specified abnormal findings of blood chemistry (principal)
CPT/HCPCS: 99204

== ENCOUNTER → 2024-11-13 15:12 | Outpatient (BNVA) | payer BC, SELFPAY | PROVIDERS: PCP Family Medicine; Visit Provider Internal Medicine Endocrinology, Diabetes & Metabolism ==

== ENCOUNTER 2024-11-28 08:15 | Outpatient (REF) | payer BC, SELFPAY ==
[2024-11-28 11:35] LABS: MANUAL DIFF FLAG NO
[2024-11-28 11:37] LABS: Basophils Absolute Auto 0.1 X10*3/uL (0.0-0.2); Basophils Percent Auto 1.2 % (0-2); Eosinophils Absolute Auto 0.3 X10*3/uL (0.0-0.4); Eosinophils Percent Auto 4.6 % (0-4); Hematocrit 35.6 % (42.0-52.0); Hemoglobin 11.5 g/dl (14.0-18.0); Imm Gran Abs Auto 0.03 X10*3/uL (0.00-0.03); Imm Gran Pct Auto 0.4 % (0.0-0.4); Immature Retic Fraction 16.2 % (2.3-13.4); Lymphocytes Absolute Auto 1.7 X10*3/uL (1.2-4.9); Lymphocytes Percent Auto 24.6 % (20-40); Mean Corpuscular HGB Conc 32.3 g/dl (31.0-36.0); Mean Corpuscular Hemoglobin 28.8 pg (27.0-33.0); Mean Platelet Volume 10.1 fL (9.4-12.4); Monocytes Absolute Auto 0.6 X10*3/uL (0.1-1.2); Monocytes Percent Auto 8.4 % (2-11); Neutrophils Absolute Auto 4.2 x10*3/uL (2.0-8.3); Neutrophils Percent Auto 60.8 % (45-73); Platelet Count 291 X10*3/uL (160-400); Red Cell Distribution Width 13.4 % (11.0-16.0); Retic HGB Equivalent 32.8 pg (30.0-35.0); Reticulocyte Percent 1.7 % (0.5-1.8); Reticulocytes Absolute 0.068 X10*6/uL (0.026-0.095); White Blood Count 6.9 X10*3/uL (4.8-10.8)
[2024-11-28 12:08] LABS: Iron 43 mcg/dL (45-160); Percent Iron Saturation 17 % (15-50); Total Iron Binding Capacity 257 mcg/dL (228-428); Unsaturated Iron Binding 214 ug/dL
[2024-11-28 12:14] LABS: Ferritin 83 ng/mL (20-250); Free T4 (Free Thyroxine) 0.86 ng/dL (0.71-1.85); Thyroid Stimulating Hormone 3.47 uIU/mL (0.32-4.0)
[2024-11-28 12:24] LABS: Folate 14.5 ng/mL (> or = 4.0); Vitamin B12 660 pg/mL (200-900)
[2024-11-29 08:58] LABS: Follicle Stimulating Hormone 9.3 mIU/mL (1.4-12.8); Lutenizing Hormone 3.3 mIU/mL (1.6-15.2)
[2024-11-29 10:28] LABS: Triiodothyronine T3 Total 84 ng/dL (76-181)
[2024-12-02 22:09] LABS: Testosterone, Free 31.2 pg/mL (35.0-155.0); Testosterone, Total 144 ng/dL (250-1100)
== END 2024-11-28 08:16 | disposition home or self-care (01) ==
LOC: HO.WFDLDS 08:15
PROVIDERS: Referring Provider Internal Medicine Endocrinology, Diabetes & Metabolism; Visit Provider Family Medicine
DX: Z00.00 Encounter for general adult medical examination without abnormal findings (principal); E03.9 Hypothyroidism, unspecified; D64.9 Anemia, unspecified; E53.8 Deficiency of other specified B group vitamins; R79.89 Other specified abnormal findings of blood chemistry
CPT/HCPCS: 36415; 82607; 82728; 82746; 83001; 83002; 83540; 84402; 84403; 84439; 84443; 84480; 85025; 85045

== ENCOUNTER 2024-12-18 16:41 | Outpatient (AMB) | payer BC, SELFPAY ==
--- NOTE | 2024-12-18 16:36 | A.OFFPC_ITS ---
Intake Visit Reasons: f/u labs via telemed Intake Note: lab review Allergies amlodipine [AMLODIPINE] Allergy (Intermediate, Verified 12/18/24 16:37) MUSCLE WEAKNESS, muscle aches, muscle aches doxazosin Allergy (Mild, Verified 12/18/24 16:37) muscle and joint pain hydrochlorothiazide [From Dutoprol] Allergy (Mild, Verified 12/18/24 16:37) joint and muscle pain lisinopril [LISINOPRIL] Allergy (Mild, Verified 12/18/24 16:37) COUGH metoprolol [From Dutoprol] Allergy (Mild, Verified 12/18/24 16:37) joint and muscle pain valsartan Allergy (Verified 12/18/24 16:37) Muscle cramps atenolol Adverse Reaction (Mild, Verified 12/18/24 16:37) muscle and joint pain chlorthalidone Adverse Reaction (Mild, Verified 12/18/24 16:37) muscle pain losartan Adverse Reaction (Mild, Verified 12/18/24 16:37) muscle pain all over body olmesartan [From Benicar] Adverse Reaction (Mild, Verified 12/18/24 16:37) joint and muscle pain candesartan and celexetil Adverse Reaction (Mild, Uncoded 11/13/24 15:19) muscle pain over all of body Tobacco use date assessed: 02/21/24 Dental Screening Dental Screen Date: 01/12/24 HPI f/u labs via telemed HPI Details 64 y/o male presents to f/u labs via tel emedicine. Labs drawn 11/28/24. Reviewed labs with pt. Mild anemia. Mildly low iron - pt notes he has been taking iron about a month ago. Low testosterone at 144 ng/dL. [facility] Medical History Enlarged prostate Lymphedema Umbilical hernia Varicose veins of left lower extremity with inflammation PAD (peripheral artery disease) Essential hypertension Obesity Chronic venous stasis Hypertension Surgical History History of nasal surgery Hx of tonsillectomy Family History Mother High blood pressure Diabetes Father Diabetes High blood pressure Paternal Grandmother Thyroid disorder Maternal Grandfather Diabetes Paternal Grandfather Cancer Family/Other High blood pressure Diabetes Social History Household Members: Spouse Housing: Apartment Do you presently have visiting nurse or other home services: No Patient Tobacco Use Status: Never used Tobacco e-Cigarette/Vaping Use: Never Used service: No Current occupational status: employed Current occupation: [employer] Cognitive needs: No Hearing needs: No Vision needs: No Questionnaire Thrive Questionnaire Date Thrive assessed: 09/25/24 KISHORE-7 AMB Questionnaire KISHORE-7 Date KISHORE - 7 assessed: 01/12/24 Source: Developed by Drs. Curtis Montes, Jocelynn Jefferson, Moshe Ochoa and colleagues, with an educational sher from [employer]. Review of Systems Const Denies chills, Denies fatigue, Denies fever(s), Denies headache(s) and Denies weakness ENT Denies dizziness and Denies headache(s) Card Denies dyspnea Resp Denies cough, Denies dyspnea, Denies wheezing and Denies other (shortness of breath) Musc Denies numbness and Denies tingling Neuro Denies dizziness, Denies headache(s), Denies numbness, Denies tingling and Denies weakness Psych Denies anxiety and Denies depression Endo Denies fatigue Aller/Immun Denies wheezing Physical exam (Primary Care) Tobacco/Smoking Status: Tobacco use Status Tobacco use date assessed 02/21/24 12/18/24 16:39 Patient Tobacco Use Status Never used Tobacco 12/18/24 16:39 e-Cigarette/Vaping Use Never Used 12/18/24 16:39 Thrive Assessment: Date of Thrive Assessment Date Thrive assessed 09/25/24 12/18/24 16:39 Telehealth Telehealth Telehealth Platform: Telephone Location of provider rendering services: practice address Location of patient: address on file Patient Identification confirmed using: Name, : Yes Telehealth method: voice only Patient verbally consented to treatment: Yes Patient verbally consented to billing insurance company: Yes Patient informed of any privacy concerns related to visit: Yes Minutes spent on Phone/Video with Pt.: 22 Coding Level of Care Code Tele Est Pt Level 3 (45320) Diagnoses Low testosterone R79.89 Mild anemia D64.9 Severe obesity (BMI >= 40) E66.01 Diabetes E11.9 Elevated TSH R79.89 Venous stasis dermatitis I87.2 Assessment & Plan Assessment & Plan (1) Low testosterone: Code(s): R79.89 - Other specified abnormal findings of blood chemistry Category: Medical Plan: Followed?by?endocrinology?in?workup?is?underway. ?had?ordered?an?MRI?with?contrast?to?rule?out?a?pituitary?lesion.??Pat ient?seems?apprehensive ?about?this?and?I?encouraged?him?to?discuss?with?. Patient?has?appointment?with?him?coming?up?in?May (2) Mild anemia: Code(s): D64.9 - Anemia, unspecified Category: Medical Plan: Mild?stable?anemia.??Iron?is?mildly?low He?has?begun?iron?already?and?we?will?recheck?CBC?and?iron?levels?next?visit (3) Severe obesity (BMI >= 40): Comment: Lifestyle mild encouraged Code(s): E66.01 - Morbid (severe) obesity due to excess calories Category: Medical Plan: Had?sent?script?for?Mounjaro?to?help?with?obesity?and?also?diabetes.??This?was?d eclined?by?insurance. Will?try?Ozempic.??Had?sent?a?script?for?Ozempic?for?obesity?prior?to?diagnos is?of?diabetes.??Will?try?this?again Could?also?consider?others (4) Diabetes: Code(s): E11.9 - Type 2 diabetes mellitus without complications Category: Medical Plan: A1c?6.5%; diabetes.??Goal?is?less?than?7.0%?we?are?working?on?getting?blood?suga rs?under?good?controlled?well?as?decreasing?weight. Sent?a?script?for?majora?recently?as?above. Will?continue?working?on?blood?sugars?and?encouraged?diet?low?in?sugars?and?star ches. (5) Elevated TSH: Code(s): R79.89 - Other specified abnormal findings of blood chemistry Category: Medical Plan: TSH?was?elevated?previously?and?repeat?level?was?within?range. T3?and?T4?are?within?limits (6) Venous stasis dermatitis: Code(s): I87.2 - Venous insufficiency (chronic) (peripheral) Category: Medical Plan: Significant?lymphedema?and?venous?stasis?dermatitis. Send?script?for?morning?lactate.??Patient?has?tried?remedies Referred?to?dermatology Orders: Referrals Dermatology Referral I87.2 - Venous insufficiency (chronic) (peripheral) Medications: New ammonium lactate 12% 1 appl topical BID 90 days 400 grams 3RF
--- OUTSIDE RECORDS SUMMARY | 2024-12-18 16:43 | XMS_ITS | Encounter Summary ---
Author Organization [facility] Address [address] [place] [address] Care Team Providers Care Regulator Mechanic Name Role Phone Holly Hood MD Primary Care Provider Unavailable Kristina Chauhan MD Primary Care Provider Unavailable Erick Cox MD Primary Care Provide r Unavailable Martine Johnson MD Primary Care Provider Unavail able Reason for Visit * Reason Onset Date Comments Medication 11/05/2015 Encounter Details Date Type Department Care Team Description 11/05/2015 Telephone Hypertension - [place] [address] [place] [address] Ava Moralez, Pharm.D Medication Social History Tobacco Use Types Packs/Day Years Used Date Smoking Tobacco: Never Alcohol Use Standard Drinks/Week Comments Not Asked 0 (1 standard drink = 0.6 oz pur e alcohol) Sex Assigned at Date Recorded Not on file documented as of this encounter Miscellaneous Notes * Telephone Encounter - Maritza Jean - 11/05/2015 11:35 AM EST Patient called about medication he is on, it is causing joint and muscle pain. Would like a call back to discuss another medication? Needs to get off of what he is on now documented in this encounter Plan of Treatment Not on file documented as of this encounter Visit Diagnoses Not on filedocumented in this encounter Care Teams Regulator Mechanic Relationship Specialty Start Date End Date Holly Hood MD PCP - General Internal Medicine 09/16/1501/07 [place]-Kristina Garcia MD PCP - General Internal Medicine 02/02/18 Erick Cox MD PCP - General Internal Medicine 04/21/18 1 Martine Johnson MD PCP - General 08/18/19 documented as of this encounter
--- OUTSIDE RECORDS SUMMARY | 2024-12-18 16:43 | XMS_ITS | Encounter Summary ---
Author Organization [facility] Address [address] [place] [address] Care Team Providers Care Sales Store Checker Name Role Phone Martine Johnson MD Primary Care Provider Unavail able Encounter Details Date Type Department Care Team Description 11/10/2019 Plow Shaker Report Medical Records [address] [place] [address] Social History Tobacco Use Types Packs/Day Years Used Date Smoking Tobacco: Never Smokeless Tobacco: Never Alcohol Use Standard Drinks/Week Comments Not Asked 0 (1 standard drink = 0.6 oz pur e alcohol) Sex Assigned at Date Recorded Not on file documented as of this encounter Plan of Treatment Not on file documented as of this encounter Visit Diagnoses Not on filedocumented in this encounter Care Teams Sales Store Checker Relationship Specialty Start Date End Date Martine Johnson MD PCP - General 08/18/19 documented as of this encounter
--- OUTSIDE RECORDS SUMMARY | 2024-12-18 16:43 | XMS_ITS | Encounter Summary ---
Author Organization [facility] Address [address] [place] [address] Care Team Providers Care Specimen Boss Name Role Phone Holly Hood MD Primary Care Provider Unavailable Kristina Chauhan MD Primary Care Provider Unavailable Erick Cox MD Primary Care Provide r Unavailable Martine Johnson MD Primary Care Provider Unavail able Encounter Details Date Type Department Care Team Description 12/16/2015 Release of Information Medical Records [address] [place] [id number] Abstract, Provider Social History Tobacco Use Types Packs/Day Years Used Date Smoking Tobacco: Never Alcohol Use Standard Drinks/Week Comments Not Asked 0 (1 standard drink = 0.6 oz pur e alcohol) Sex Assigned at Date Recorded Not on file documented as of this encounter Nursing Notes * 12/16/2015 12:00 PM EST >> LELAND Rosales Dec 16, 2015 11:27 AM PT RQ documented in this encounter Plan of Treatment Not on file documented as of this encounter Visit Diagnoses Not on filedocumented in this encounter Care Teams Specimen Boss Relationship Specialty Start Date End Date Holly Hood MD PCP - General Internal Medicine 09/16/1501/07 Kristina Chauhan MD PCP - General Internal Medicine 02/02/18 Erick Cox MD PCP - General Internal Medicine 04/21/18 1 Martine Johnson MD PCP - General 08/18/19 documented as of this encounter
--- OUTSIDE RECORDS SUMMARY | 2024-12-18 16:43 | XMS_ITS | Encounter Summary ---
Author Organization [facility] Address [address] [place] [address] Care Team Providers Care Boilermaker Fitter Name Role Phone Erick Cox MD Primary Care Provide r Unavailable Martine Johnson MD Primary Care Provider Unavail able Reason for Visit * Reason Onset Date Comments Blood Pressure follow up 01/09/2019 Encounter Details Date Type Department Care Team Description 01/09/2019 Telephone Adult Medicine - [address] [address] Erick Cox MD Blood Pressure follow up Social History Tobacco Use Types Packs/Day Years Used Date Smoking Tobacco: Never Smokeless Tobacco: Never Alcohol Use Standard Drinks/Week Comments Not Asked 0 (1 standard drink = 0.6 oz pur e alcohol) Sex Assigned at Date Recorded Not on file documented as of this encounter Miscellaneous Notes * Telephone Encounter - Flakita Montgomery L.P.N. - 01/09/2019 11:46 AM EST Message left with for patient to return call to schedule appt for b/p follow up. Target b/p in appt notes please. documented in this encounter Plan of Treatment Not on file documented as of this encounter Visit Diagnoses Not on filedocumented in this encounter Care Teams Boilermaker Fitter Relationship Specialty Start Date End Date Erick Cox MD PCP - General Internal Medicine 04/21/18 1 Martine Johnson MD PCP - General 08/18/19 documented as of this encounter
--- OUTSIDE RECORDS SUMMARY | 2024-12-18 16:43 | XMS_ITS | Encounter Summary ---
Author Organization [facility] Address [address] [place] [address] Care Team Providers Care Auto Transmission Mechanic Name Role Phone Kristina Chauhan MD Primary Care Provider Unavailable Erick Cox MD Primary Care Provide r Unavailable Martine Johnson MD Primary Care Provider Unavail able Reason for Visit * Reason Onset Date Comments er follow up 02/02/2018 Initial Visit 02/02/2018 Encounter Details Date Type Department Care Team Description 02/02/2018 Telephone Adult Medicine - [address] [address] Kristina Chauhan MD er follow up; Initial Visit Social History Tobacco Use Types Packs/Day Years Used Date Smoking Tobacco: Never Alcohol Use Standard Drinks/Week Comments Not Asked 0 (1 standard drink = 0.6 oz pur e alcohol) Sex Assigned at Date Recorded Not on file documented as of this encounter Miscellaneous Notes * Telephone Encounter - Maria Eugenia Kim R.N. - 02/02/2018 1:52 PM EDT Patient states he has to have an ER fu because he was in [facility]. 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 Appointment 02/03 with @2pm Please obtain ER notes from [facility]. * Telephone Encounter - Rosetta Koenig - 02/02/2018 1:44 PM EDT Pt wants to speak to nurse before booking, has not been seen since 2016 and is requesting to be seen by Kristina [facility] patient was treated at: [facility] Was this only an ER visit or was the patient admitted to the hospital? ER visit only Date of visit if ER visit only: 02/02/18 If patient was admitted what was the date of discharge? N/A Reason/diagnosis for visit or stay: Trouble breathing, hypertension When was the patient told to follow up? [place] Was visit or stay related to an injury? NO If yes, what was the date of injury (DOI)? N/A If yes, was the injury due to N/A documented in this encounter Plan of Treatment Not on file documented as of this encounter Visit Diagnoses Not on filedocumented in this encounter Care Teams Auto Transmission Mechanic Relationship Specialty Start Date End Date Kristina Chauhan MD PCP - General Internal Medicine 02/02/18 Erick Cox MD PCP - General Internal Medicine 04/21/18 1 Martine Johnson MD PCP - General 08/18/19 documented as of this encounter
--- OUTSIDE RECORDS SUMMARY | 2024-12-18 16:43 | XMS_ITS | Encounter Summary ---
Author Organization [facility] Address [address] [place] [address] Care Team Providers Care Solar Designer/Installer Name Role Phone Amena Graves DO Primary Care Pro vider Unavailable Community, Pcp Primary Care Provider UnavailHolly Garcia MD Primary Care Provider Unavailable Kristina Chauhan MD Primary Care Provider Unavailable Erick Cox MD Primary Care Provide r Unavailable Martine Johnson MD Primary Care Provider Unavail able Encounter Details Date Type Department Care Team Description 12/19/2013 Transfer Records Medical Records [address] [place] [id number] Abstract, Provider Social History Tobacco Use Types [...] on filedocumented in this encounter Care Teams Solar Designer/Installer Relationship Specialty Start Date End Date Amena Graves DO PCP - General Internal Medicine 11/09/13 02/23/14 Community, Pcp PCP - General Internal Medicine 02/24/14 09/15/15 Holly Hood MD PCP - General Internal Medicine 09/16/1501/07 Kristina Chauhan MD PCP - General Internal Medicine 02/02/18 Erick Cox MD PCP - General Internal Medicine 04/21/18 1 Martine Johnson MD PCP - General 08/18/19 documented as of this encounter
--- OUTSIDE RECORDS SUMMARY | 2024-12-18 16:43 | XMS_ITS | Encounter Summary ---
Author Organization [facility] Address [address] [place] [address] Care Team Providers Care Biscuit Machine Operator Name Role Phone Martine Johnson MD Primary Care Provider Unavail able Encounter Details Date Type Department Care Team Description 09/18/2019 Release of Information Medical Records [address] [place] [id number] Abstract, Provider Social History Tobacco Use Types [...] on filedocumented in this encounter Care Teams Biscuit Machine Operator Relationship Specialty Start Date End Date Martine Johnson MD PCP - General 08/18/19 documented as of this encounter
--- OUTSIDE RECORDS SUMMARY | 2024-12-18 16:43 | XMS_ITS | Encounter Summary ---
Author Organization [facility] Address [address] [place] [address] Care Team Providers Care Estimator And Drafter Supervisor Name Role Phone Kristina Chauhan MD Primary Care Provider Unavailable Erick Cox MD Primary Care Provide r Unavailable Martine Johnson MD Primary Care Provider Unavail able Encounter Details Date Type Department Care Team Description 04/06/[address] [address] Kristina Chauhan MD Social History Tobacco Use Types Packs/Day Years [...] on filedocumented in this encounter Care Teams Estimator And Drafter Supervisor Relationship Specialty Start Date End Date Kristina Chauhan MD PCP - General Internal Medicine 02/02/18 Erick Cox MD PCP - General Internal Medicine 04/21/18 1 Martine Johnson MD PCP - General 08/18/19 documented as of this encounter
--- OUTSIDE RECORDS SUMMARY | 2024-12-18 16:43 | XMS_ITS | Encounter Summary ---
Author Organization [facility] Address [address] [place] [address] Care Team Providers Care Video Manager Name Role Phone Erick Cox MD Primary Care Provide r Unavailable Martine Johnson MD Primary Care Provider Unavail able Reason for Visit * Reason Onset Date Comments Testing 05/23/2018 Encounter Details Date Type Department Care Team Description 05/23/2018 Telephone Adult Medicine - [address] [address] Erick Cox MD Testing Social History Tobacco Use Types Packs/Day Years Used Date Smoking Tobacco: Never Smokeless Tobacco: Never Alcohol Use Standard Drinks/Week Comments Not Asked 0 (1 standard drink = 0.6 oz pur e alcohol) Sex Assigned at Date Recorded Not on file documented as of this encounter Miscellaneous Notes * Telephone Encounter - Bharath Shanks LPN - 05/24/2018 8:45 AM EDT romario * Telephone Encounter - Marylu Petersen - 05/23/2018 5:45 PM EDT Called and spoke with patient on 05/19/[address] of chest. Patient stated he did not want to have a CT of chest done, and that he was changing doctors. Order removed and message sent to doctor. J Please note that this test must be reordered if required in the future. documented in this encounter Plan of Treatment Not on file documented as of this encounter Visit Diagnoses Not on filedocumented in this encounter Care Teams Video Manager Relationship Specialty Start Date End Date Erick Cox MD PCP - General Internal Medicine 04/21/18 1 Martine Johnson MD PCP - General 08/18/19 documented as of this encounter
== END 2024-12-18 17:05 | disposition home or self-care (01) ==
LOC: HO.HMCFM 16:41
PROVIDERS: PCP Family Medicine; Visit Provider Family Medicine
DX: E11.9 Type 2 diabetes mellitus without complications (principal); E66.01 Morbid (severe) obesity due to excess calories; R79.89 Other specified abnormal findings of blood chemistry; D64.9 Anemia, unspecified; I87.2 Venous insufficiency (chronic) (peripheral)

== ENCOUNTER 2025-02-13 07:42 | Outpatient (REF) | payer BC, SELFPAY ==
--- OUTSIDE RECORDS SUMMARY | 2025-02-13 07:44 | XMS_ITS | Clinical Summary ---
Author Organization [facility] Address [address] [place] [address] Care Team Providers Care Technical Business Systems Analyst Name Role Phone Unavailable Primary Care Provider Unavailabl e Social History Tobacco Use Types Packs/Day Years Used Date Smoking Tobacco: Never Assessed Sex and Gender Information Value Date Recorded Sex Assigned at Not on file Gender Identity Not on file Sexual Orientation Not on file Plan of Treatment Health Maintenance Due Date Last Done Comments Hepatitis C Virus Screening 1959 HIV Screening 1972 DTaP/Tdap/Td Vaccines (1 - Tdap) 1978 Pneumococcal Vaccines 50+ (1 of 1 - PCV) 2009 Zoster (Shingles) Vaccine (1 of 2) 2009 COVID-19 Vaccine ( - 2023-2 5 season) 2024 RSV Vaccine 60 years and old er and Patients (1 - 1-dose 75+ series) 2034 Hepatitis B Vaccines Aged Out No long er eligible based on patient's age to complete this topic
[2025-02-13 11:51] LABS: Ferritin 100 ng/mL (20-250)
[2025-02-14 04:59] LABS: Prolactin 10.3 ng/mL (2.0-18.0)
== END 2025-02-13 07:43 | disposition home or self-care (01) ==
LOC: HO.WFDLDS 07:42
PROVIDERS: Visit Provider Internal Medicine Endocrinology, Diabetes & Metabolism
DX: R79.89 Other specified abnormal findings of blood chemistry (principal)
CPT/HCPCS: 36415; 82728; 84146

== ENCOUNTER → 2025-02-13 16:13 | Outpatient (BNV) | payer BC, SELFPAY | PROVIDERS: PCP Family Medicine; Visit Provider Radiology Diagnostic Radiology | DX: R79.89 Other specified abnormal findings of blood chemistry (principal) | CPT/HCPCS: 70551 ==

== ENCOUNTER 2025-02-13 16:25 | Outpatient (REF) | payer BC, SELFPAY ==
--- NOTE | ~2025-02-13 | MR_ITS ---
EXAMINATION: MR BRAIN PITUITARY PROTOCOL WITHOUT CONTRAST CLINICAL INFORMATION: Abnormal blood chemistry. Concern pituitary adenoma. COMPARISON: None available. TECHNIQUE: MRI of the brain pituitary protocol was obtained using routine sequences without contrast. Patient refused IV contrast. FINDINGS: The pituitary gland demonstrates normal morphology and size. Pituitary stalk is midline and measures 17 mm in maximum thickness. Optic chiasm is intact with normal signal. No masses in the sella suprasellar region. Flow-void signal within the cavernous supracavernous segments of the ICA is normal. Brainstem demonstrates no signal abnormality. Midline structures are normal. Cerebellopontine angle cisterns and perimesencephalic cisterns are normal. The Meckel's caves demonstrated no signal abnormality or masses. The cisternal segments and entry zones of the trigeminal nerves demonstrated no signal abnormality. Cochlear and vestibular components of the intracranial nerves demonstrated no signal abnormality. No restricted diffusion. No acute intracranial hemorrhage, mass effect, midline shift, hydrocephalus or herniation. Al-white matter differentiation is normal. Craniocervical junction is normal. Flow-void signal within the main vessels is normal. MR/MR head/brain wo con IMPRESSION: No masses or signal abnormality in the sellar/suprasellar region. Electronically signed by: Jerman Arenas MD 02/14/2025 07:10 AM EDT
--- OUTSIDE RECORDS SUMMARY | 2025-02-13 19:03 | XMS_ITS | Clinical Summary ---
Author Organization [facility] Address [address] [place] [address] Care Team Providers Care Oil Lease Broker Name Role Phone Unavailable Primary Care Provider [...]
== END 2025-02-13 16:26 | disposition home or self-care (01) ==
LOC: HO.MRI 16:25
PROVIDERS: PCP Family Medicine; Visit Provider Internal Medicine Endocrinology, Diabetes & Metabolism
DX: R79.89 Other specified abnormal findings of blood chemistry (principal)
CPT/HCPCS: 70551

== ENCOUNTER 2025-03-13 10:50 | Outpatient (AMB) | payer BC, SELFPAY ==
[2025-03-13 10:52] VITALS: BP 140/78; PULSE 68; O2SAT 97; BMI 47.2
--- NOTE | 2025-03-13 10:52 | MHC.OFFVIS ---
Vital Signs 03/13/25 10:52 Height 5 ft 9 in Weight 319 lb 14.252 oz BMI 47.2 BP 140/78 H Blood Pressure Location Lt brachial Position Sitting Pulse 68 Pulse Source Pulse Oximeter Pulse Oximetry (%) 97 Oxygen Delivery Method Room Air Intake Visit Reasons: Hypogonadism Intake Note: Patient present today for Hypogonadism follow up.? Allergies amlodipine [AMLODIPINE] Allergy (Intermediate, Verified 03/13/25 10:57) MUSCLE WEAKNESS, muscle aches, muscle aches doxazosin Allergy (Mild, Verified 03/13/25 10:57) muscle and joint pain hydrochlorothiazide [From Dutoprol] Allergy (Mild, Verified 03/13/25 10:57) joint and muscle pain lisinopril [LISINOPRIL] Allergy (Mild, Verified 03/13/25 10:57) COUGH metoprolol [From Dutoprol] Allergy (Mild, Verified 03/13/25 10:57) joint and muscle pain valsartan Allergy (Verified 03/13/25 10:57) Muscle cramps atenolol Adverse Reaction (Mild, Verified 03/13/25 10:57) muscle and joint pain chlorthalidone Adverse Reaction (Mild, Verified 03/13/25 10:57) muscle pain losartan Adverse Reaction (Mild, Verified 03/13/25 10:57) muscle pain all over body olmesartan [From Benicar] Adverse Reaction (Mild, Verified 03/13/25 10:57) joint and muscle pain candesartan and celexetil Adverse Reaction (Mild, Uncoded 03/13/25 10:57) muscle pain over all of body HPI Comments Details: 64 YO Male with PMHx CHF and venous insufficency who is seen in consultation at the request of his PCP for Hypogonadism. First diagnosed with Hypogonadism with labs on 10/18/2024 revealing 155/ free testo of 26.2 . Labs 5-6 yrs ago testo was normal Was not started on Testosterone supplementation Not Currently using testosterone. Currently not achieving spontaneous am erections, but able to achieve erection when desired. Reports low libido. Not Decreased facial hair and shaving frequency. Denies any change in size or shape of testicles. Denies penile discharge or scrotal tenderness. Denies any history of mumps orchitis. Denies any head trauma. Denies history of JULIETH. with children 1 child who were conceived spontaneously. Sense of smell intact. Denies headache or visual changes, gynecomastia or galactorrhea. Denies orthostatic symptoms, weight loss. Denies change in size of hands or feet. Denies hair loss, weight gain, cold intolerance. 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 and normal prolactin PSA CBC PFSH Medical History Enlarged prostate Lymphedema Umbilical hernia Varicose veins of left lower extremity with inflammation PAD (peripheral artery disease) Essential hypertension Obesity Chronic venous stasis Hypertension Surgical History History of nasal surgery Hx of tonsillectomy Family History Mother High blood pressure Diabetes Father Diabetes High blood pressure Paternal Grandmother Thyroid disorder Maternal Grandfather Diabetes Paternal Grandfather Cancer Family/Other High blood pressure Diabetes Social History Household Members: Spouse Housing: Apartment Do you presently have visiting nurse or other home services: No Patient Tobacco Use Status: Never used Tobacco e-Cigarette/Vaping Use: Never Used service: No Current occupational status: employed 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 After a careful discussion regarding risks and benefits of testosterone replacement, we decided to get a second opinion from Tereso Garcia MD at [facility] Orders: Referrals Endocrinology Referral R79.89 - Other specified abnormal findings of blood chemistry Coding Level of Care Code Est Pt Level 3 (43804) Diagnoses Low testosterone R79.89
--- OUTSIDE RECORDS SUMMARY | 2025-03-13 12:30 | XMS_ITS | Clinical Summary ---
Author Organization [facility] Address [address] [place] [address] Care Team Providers Care Dimensional Integration Engineer Name Role Phone Unavailable Primary Care Provider Unavailabl e Social History Tobacco Use Types Packs/Day Years Used Date Smoking Tobacco: Never Assessed Sex and Gender Information Value Date Recorded Sex Assigned at Not on file Legal Sex Male 7:20 PM EDT Gender Identity Not on file Sexual Orientation [...]
== END 2025-03-13 11:44 | disposition home or self-care (01) ==
LOC: HO.ENCR 10:50
PROVIDERS: PCP Family Medicine; Visit Provider Internal Medicine Endocrinology, Diabetes & Metabolism
DX: R79.89 Other specified abnormal findings of blood chemistry (principal)
CPT/HCPCS: 99213

== ENCOUNTER → 2025-03-13 10:50 | Outpatient (BNVA) | payer BC, SELFPAY | PROVIDERS: PCP Family Medicine; Visit Provider Internal Medicine Endocrinology, Diabetes & Metabolism ==

== ENCOUNTER 2025-03-21 09:19 | Outpatient (REF) | payer BC, SELFPAY ==
--- OUTSIDE RECORDS SUMMARY | 2025-03-21 09:50 | XMS_ITS | Encounter Summary ---
Author Organization [facility] Address [address] [place] [address] Care Team Providers Care Buckle Attaching Machine Operator Name Role Phone Holly Hood MD Primary Care Provider Unavailable Kristina Chauhan MD Primary Care Provider Unavailable Erick Cox MD Primary Care Provide r Unavailable Martine Johnson MD Primary Care Provider Unavail able Encounter Details Date Type Department Care Team Description 12/16/2015 Release of Information Medical Records [address] [place] [id number] Abstract, Provider Social History Tobacco Use Types [...] on filedocumented in this encounter Care Teams Buckle Attaching Machine Operator Relationship Specialty Start Date End Date Holly Hood MD PCP - General Internal Medicine 09/16/1501/07 Kristina Chauhan MD PCP - General Internal Medicine 02/02/18 Erick Cox MD PCP - General Internal Medicine 04/21/18 1 Martine Johnson MD PCP - General 08/18/19 documented as of this encounter
--- OUTSIDE RECORDS SUMMARY | 2025-03-21 09:50 | XMS_ITS | Encounter Summary ---
Author Organization [facility] Address [address] [place] [address] Care Team Providers Care Prepared Foods Team Leader Name Role Phone Holly Hood MD Primary Care Provider Unavailable Kristina Chauhan MD Primary Care Provider Unavailable Erick Cox MD Primary Care Provide r Unavailable Martine Johnson MD Primary Care Provider Unavail able Reason for Visit * Reason Onset Date Comments Medication 11/05/2015 Encounter Details Date Type Department Care Team Description 11/05/2015 Telephone Hypertension - [place] [address] [place] [address] Ava Moralez, Pharm.D Medication Social History Tobacco [...] on filedocumented in this encounter Care Teams Prepared Foods Team Leader Relationship Specialty Start Date End Date Holly Hood MD PCP - General Internal Medicine 09/16/1501/07 [place]-Kristina Garcia MD PCP - General Internal Medicine 02/02/18 Erick Cox MD PCP - General Internal Medicine 04/21/18 1 Martine Johnson MD PCP - General 08/18/19 documented as of this encounter
--- OUTSIDE RECORDS SUMMARY | 2025-03-21 09:50 | XMS_ITS | Clinical Summary ---
Author Organization [facility] Address [address] [place] [address] Care Team Providers Care Tower Operator Name Role Phone Unavailable Primary Care Provider [...]
--- OUTSIDE RECORDS SUMMARY | 2025-03-21 09:50 | XMS_ITS | Encounter Summary ---
Author Organization [facility] Address [address] [place] [address] Care Team Providers Care Group Therapy Counselor Name Role Phone Martine Johnson MD Primary Care Provider Unavail able Reason for Visit * Reason Onset Date Comments REFERRAL 11/10/2019 Encounter Details Date Type Department Care Team Description 11/10/2019 Telephone Vascular Surgery - [address] [place] [address] Jack Isabel MD REFERRAL Social History Tobacco Use Types Packs/Day Years Used Date Smoking Tobacco: Never Smokeless Tobacco: Never Alcohol Use Standard Drinks/Week Comments Not Asked 0 (1 standard drink = 0.6 oz pur e alcohol) Sex Assigned at Date Recorded Not on file documented as of this encounter Miscellaneous Notes * Telephone Encounter - Norbert Rodrigues - 11/10/2019 3:26 PM EST Lvm for pt to call back and schedule apt. Received referral from [facility]. Reason for referral: chronic venous insufficiency documented in this encounter Plan of Treatment Not on file documented as of this encounter Visit Diagnoses Not on filedocumented in this encounter Care Teams Group Therapy Counselor Relationship Specialty Start Date End Date Martine Johnson MD PCP - General 08/18/19 documented as of this encounter
--- OUTSIDE RECORDS SUMMARY | 2025-03-21 09:50 | XMS_ITS | Encounter Summary ---
Author Organization [facility] Address [address] [place] [address] Care Team Providers Care Umbrella Tipper Name Role Phone Amena Graves DO Primary Care Pro vider Unavailable Community, Pcp Primary Care Provider UnavailHolly Garcia MD Primary Care Provider Unavailable Kristina Chauhan MD Primary Care Provider Unavailable Erick Cox MD Primary Care Provide r Unavailable Martine Johnson MD Primary Care Provider Unavail able Encounter Details Date Type Department Care Team Description 12/20/2013 Release of Information Medical Records [address] [place] [id number] Abstract, Provider Social History Tobacco Use Types [...] on filedocumented in this encounter Care Teams Umbrella Tipper Relationship Specialty Start Date End Date Amena [...]
--- OUTSIDE RECORDS SUMMARY | 2025-03-21 09:51 | XMS_ITS | Encounter Summary ---
Author Organization [facility] Address [address] [place] [address] Care Team Providers Care Bow Maker Machine Tender Name Role Phone Erick Cox MD Primary Care Provide r Unavailable Martine Johnson MD Primary Care Provider Unavail able Reason for Visit * Reason Onset Date Comments Blood Pressure follow up 01/09/2019 Encounter Details Date Type Department Care Team Description 01/09/2019 Telephone Adult Medicine - [address] [address] Erick Cox MD Blood Pressure follow up [...] on filedocumented in this encounter Care Teams Bow Maker Machine Tender Relationship Specialty Start Date End Date Erick Cox MD PCP - General Internal Medicine 04/21/18 1 Martine Johnson MD PCP - General 08/18/19 documented as of this encounter
--- OUTSIDE RECORDS SUMMARY | 2025-03-21 09:51 | XMS_ITS | Encounter Summary ---
Author Organization [facility] Address [address] [place] [address] Care Team Providers Care Bottle Dealer Name Role Phone Holly Hood MD Primary Care Provider Unavailable Kristina Chauhan MD Primary Care Provider Unavailable Erick Cox MD Primary Care Provide r Unavailable Martine Johnson MD Primary Care Provider Unavail able Encounter Details Date Type Department Care Team Description 02/17/2016 Deputy Manager Report Medical Records [address] [place] [id number] Saleem Royal Social History Tobacco Use Types Packs/Day Years Used Date Smoking Tobacco: Never Alcohol Use Standard Drinks/Week Comments Not Asked 0 (1 standard drink = 0.6 oz pur e alcohol) Sex Assigned at Date Recorded Not on file documented as of this encounter Plan of Treatment Not on file documented as of this encounter Visit Diagnoses Not on filedocumented in this encounter Care Teams Bottle Dealer Relationship Specialty Start Date End Date Holly Hood MD PCP - General Internal Medicine 09/16/1501/07 Kristina Chauhan MD PCP - General Internal Medicine 02/02/18 Erick Cox MD PCP - General Internal Medicine 04/21/18 1 Martine Johnson MD PCP - General 08/18/19 documented as of this encounter
--- OUTSIDE RECORDS SUMMARY | 2025-03-21 09:51 | XMS_ITS | Encounter Summary ---
Author Organization [facility] Address [address] [place] [address] Care Team Providers Care Operating Room Assistant Name Role Phone Kristina Chauhan MD Primary Care Provider Unavailable Erick Cox MD Primary Care Provide r Unavailable Martine Johnson MD Primary Care Provider Unavail able Encounter Details Date Type Department Care Team Description 04/06/[address] [address] Kristina Chauhan MD Social History Tobacco Use [...] on filedocumented in this encounter Care Teams Operating Room Assistant Relationship Specialty Start Date End Date Kristina Chauhan MD PCP - General Internal Medicine 02/02/18 Erick Cox MD PCP - General Internal Medicine 04/21/18 1 Martine Johnson MD PCP - General 08/18/19 documented as of this encounter
--- OUTSIDE RECORDS SUMMARY | 2025-03-21 09:51 | XMS_ITS | Encounter Summary ---
Author Organization [facility] Address [address] [place] [address] Care Team Providers Care Metal Cutter Name Role Phone Holly Hood MD Primary Care Provider Unavailable Kristina Chauhan MD Primary Care Provider Unavailable Erick Cox MD Primary Care Provide r Unavailable Martine Johnson MD Primary Care Provider Unavail able Encounter Details Date Type Department Care Team Description 01/28/2017 Release of Information Medical Records [address] [place] [id number] Abstract, Provider Social History Tobacco Use Types [...] on filedocumented in this encounter Care Teams Metal Cutter Relationship Specialty Start Date End Date Holly Hood MD PCP - General Internal Medicine 09/16/15 305/25 Kristina Chauhan MD PCP - General Internal Medicine 02/02/18 Erick Cox MD PCP - General Internal Medicine 04/21/18 1 Martine Johnson MD PCP - General 08/18/19 documented as of this encounter
--- OUTSIDE RECORDS SUMMARY | 2025-03-21 09:51 | XMS_ITS | Encounter Summary ---
Author Organization [facility] Address [address] [place] [address] Care Team Providers Care Wine Master Name Role Phone Kristina Chauhan MD Primary Care Provider Unavailable Erick Cox MD Primary Care Provide r Unavailable Martine Johnson MD Primary Care Provider Unavail able Reason for Visit * Reason Onset Date Comments er follow up 02/02/2018 Initial Visit 02/02/2018 Encounter Details Date Type Department Care Team Description 02/02/2018 Telephone Adult Medicine - [address] [address] Kristina Chauhan MD er follow up; Initial [...] an ER fu because he was in [facility]. 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 Appointment 02/03 with @2pm Please obtain ER notes from [facility]. * Telephone Encounter - Rosetta Koenig - 02/02/2018 1:44 PM EDT Pt wants to speak to nurse before booking, has not been seen since 2016 and is requesting to be seen by Kristina [facility] patient was treated at: [facility] Was this only an ER visit or [...] on filedocumented in this encounter Care Teams Wine Master Relationship Specialty Start Date End Date Kristina Chauhan MD PCP - General Internal Medicine 02/02/18 Erick Cox MD PCP - General Internal Medicine 04/21/18 1 Martine Johnson MD PCP - General 08/18/19 documented as of this encounter
[2025-03-21 11:55] LABS: Prostate Specific Antigen 3.71 ng/mL (<0.05-4.0)
[2025-03-21 14:57] LABS: MANUAL DIFF FLAG NO
[2025-03-21 15:01] LABS: Basophils Absolute Auto 0.1 X10*3/uL (0.0-0.2); Eosinophils Absolute Auto 0.3 X10*3/uL (0.0-0.4); Eosinophils Percent Auto 3.7 % (0-4); Hematocrit 37.2 % (42.0-52.0); Hemoglobin 12.4 g/dl (14.0-18.0); Imm Gran Abs Auto 0.02 X10*3/uL (0.00-0.03); Imm Gran Pct Auto 0.3 % (0.0-0.4); Immature Retic Fraction 16.5 % (2.3-13.4); Lymphocytes Absolute Auto 1.8 X10*3/uL (1.2-4.9); Lymphocytes Percent Auto 24.8 % (20-40); Mean Corpuscular HGB Conc 33.3 g/dl (31.0-36.0); Mean Corpuscular Hemoglobin 29.1 pg (27.0-33.0); Mean Corpuscular Volume 87.3 fL (80.0-98.0); Mean Platelet Volume 10.7 fL (9.4-12.4); Monocytes Absolute Auto 0.7 X10*3/uL (0.1-1.2); Monocytes Percent Auto 10.2 % (2-11); Neutrophils Absolute Auto 4.2 x10*3/uL (2.0-8.3); Platelet Count 274 X10*3/uL (160-400); Red Blood Count 4.26 X10*6/uL (4.60-5.80); Red Cell Distribution Width 13.7 % (11.0-16.0); Retic HGB Equivalent 32.1 pg (30.0-35.0); Reticulocyte Percent 2.1 % (0.5-1.8); Reticulocytes Absolute 0.087 X10*6/uL (0.026-0.095); White Blood Count 7.1 X10*3/uL (4.8-10.8)
[2025-03-21 15:28] LABS: Alanine Aminotransferase 12 U/L (0-40); Albumin Level 3.7 g/dL (3.5-5.0); Anion Gap 13 (12-20); Aspartate Amino Transferase 24 U/L (5-37); Bilirubin Total 0.3 mg/dL (0.0-1.0); Blood Urea Nitrogen 22 mg/dL (9-16); Calcium 9.2 mg/dL (8.4-10.2); Carbon Dioxide 26 mmol/L (22-29); Chloride 102 mmol/L (96-108); Estimated Glomerular Filt Rate > 60; Glucose Random 106 mg/dL (60-115); Iron 80 mcg/dL (45-160); Percent Iron Saturation 29 % (15-50); Potassium 3.9 mmol/L (3.3-5.1); Sodium 137 mmol/L (135-145); Total Iron Binding Capacity 276 mcg/dL (228-428); Total Protein 8.2 g/dL (6.5-8.0); Unsaturated Iron Binding 196 ug/dL
[2025-03-21 15:45] LABS: Ferritin 79 ng/mL (20-250)
[2025-03-21 15:50] LABS: Folate 14.5 ng/mL (> or = 4.0); Vitamin B12 685 pg/mL (200-900)
[2025-03-21 16:51] LABS: Alkaline Phosphatase 71 U/L (39-117)
== END 2025-03-21 09:20 | disposition home or self-care (01) ==
LOC: HO.WFDLDS 09:19
PROVIDERS: Family Medicine; Visit Provider Nurse Practitioner Family
DX: Z00.00 Encounter for general adult medical examination without abnormal findings (principal); E53.8 Deficiency of other specified B group vitamins; D64.9 Anemia, unspecified; R97.20 Elevated prostate specific antigen [PSA]; N40.0 Benign prostatic hyperplasia without lower urinary tract symptoms; Z12.5 Encounter for screening for malignant neoplasm of prostate
CPT/HCPCS: 36415; 80053; 82607; 82728; 82746; 83540; 84153; 85025; 85045

== ENCOUNTER 2025-03-26 11:18 | Outpatient (AMB) | payer BC, SELFPAY ==
--- NOTE | 2025-03-26 11:31 | A.OFFPC_ITS ---
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 Allergies amlodipine [AMLODIPINE] Allergy (Intermediate, Verified 03/26/25 11:34) MUSCLE WEAKNESS, muscle aches, muscle aches doxazosin Allergy (Mild, Verified 03/26/25 11:34) muscle and joint pain hydrochlorothiazide [From Dutoprol] Allergy (Mild, Verified 03/26/25 11:34) joint and muscle pain lisinopril [LISINOPRIL] Allergy (Mild, Verified 03/26/25 11:34) COUGH metoprolol [From Dutoprol] Allergy (Mild, Verified 03/26/25 11:34) joint and muscle pain valsartan Allergy (Verified 03/26/25 11:34) Muscle cramps atenolol Adverse Reaction (Mild, Verified 03/26/25 11:34) muscle and joint pain chlorthalidone Adverse Reaction (Mild, Verified 03/26/25 11:34) muscle pain losartan Adverse Reaction (Mild, Verified 03/26/25 11:34) muscle pain all over body olmesartan [From Benicar] Adverse Reaction (Mild, Verified 03/26/25 11:34) joint and muscle pain candesartan and celexetil Adverse Reaction (Mild, Uncoded 03/13/25 10:57) muscle pain over all of body Medication List - Last Reconciled 03/26/25 by Jack Turner MD aspirin 81 mg PO DAILY bismuth tribrom-petrolatum,wh 5 X 9 (Xeroform Petrolatum Dressing) As directed blood pressure monitor Automatic, Digital. Dx: I10. Daily As directed, 999 days/lifetime. XL Cuff clobetasol 0.05% topical BID comp.stocking,thigh,long,x-lrg 30-40?mmHg. Use?Daily?As directed, 90 days furosemide 40 mg PO DAILY 30 days hydrochlorothiazide 25 mg PO DAILY 90 days semaglutide (Ozempic) 0.25 mg (0.368 mL) subcut QWEEK 28 days Tobacco use date assessed: 02/21/24 Dental Screening Dental Screen Date: 01/12/24 HPI f/u labs HPI Details 64 y/o male [facility] to f[facility]. Saw Endocrinology 03/13/25 for low testosterone levels. Discussed possible testosterone initiation but were concerned about starting testosterone due to hx of fluid overload, CHF as well as venous insufficiency. They plan to get a second opinion from Tereso Garica. Last A1c 6.5%. A1c today 6.3%. He is not on any diabetes meds. BP today 150/86, 65p. He is on hydrochlorothiazide 25mg. Pt notes he has not had his BP meds yet today. Pt notes BP better controlled at home. Labs drawn 03/21/25. Reviewed labs with pt. Improving anemia. Pt notes he is on an iron supplement daily. HPI Comments History of Present Illness Details Documentation assistance for Jack Turner MD, was provided by Brandin Mccoy, Subsea Engineer on 03/26/2025 at 11:45 AM EST. I, Dr. Turner, have read, observed, and verified documentation. [facility] Medical History Enlarged prostate Lymphedema Umbilical hernia Varicose veins of left lower extremity with inflammation PAD (peripheral artery disease) Essential hypertension Obesity Chronic venous stasis Hypertension Surgical History History of nasal surgery Hx of tonsillectomy Family History Mother High blood pressure Diabetes Father Diabetes High blood pressure Paternal Grandmother Thyroid disorder Maternal Grandfather Diabetes Paternal Grandfather Cancer Family/Other High blood pressure Diabetes Social History Household Members: Spouse Housing: Apartment Do you presently have visiting nurse or other home services: No Patient Tobacco Use Status: Never used Tobacco e-Cigarette/Vaping Use: Never Used service: No Current occupational status: employed 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 1. Little interest or pleasure in doing things: not at all 2. Feeling down, depressed, or hopeless: nearly every day 3. Trouble falling or staying asleep, or sleeping too much: not at all 4. Feeling tired or having little energy: nearly every day 5. Poor appetite or overeating: not at all 6. Feeling bad about yourself - or that you are a failure or have let yourself or your family down: not at all 7. Trouble concentrating on things, such as reading the newspaper or watching television: not at all 8. Moving or speaking so slowly that other people could have noticed. Or the opposite - being so fidgety or restless that you have been moving around a lot more than usual: not at all 9. Thoughts that you would be better off or of hurting yourself in some way: not at all Total score: 6 Depression Screening Interpretation: Positive Depression Screening Follow-up: In treatment Depression Screening Done: Yes Source: Developed by Drs. Curtis Montes, Jocelynn Jefferson, Moshe Ochoa and colleagues, with an educational sher from [employer]. Thrive Questionnaire Date Thrive assessed: 09/25/24 I am a: Patient What is your living situation today?: I have a place to live, but I am worried about losing it in the future Within the past 12 months, did the food you bought not last and you didn't have the money to get more?: I choose not to answer this question Within the past 12 months, did you worry whether your food would run out before you got money to buy more?: I choose not to answer this question Do you have trouble paying for medicines?: Yes Do you have trouble getting transportation to medical appointments?: No Do you have trouble paying your heating and electricity bill?: Yes Do you have trouble taking care of your child, family member or friend?: No Do you have trouble with day-to-day activities such as bathing, preparing meals, shopping, managing finances, etc.?: Yes Are you currently unemployed and looking for a job?: No Are you interested in more education?: No Please select the resources that you would like help with: None Currently or been in a relationship where the following occur: I choose not to answer THRIVE Score: 2 AUDIT C Alcohol Use Questionnaire (AUDIT-C) 1. How often do you have a drink containing alcohol?: 2-4 times a month 2. How many drinks containing alcohol do you have on a typical day when you are drinking?: 1 or 2 3. How often do you have six or more drinks on one occasion?: Never Total Score: 2 KISHORE-7 AMB Questionnaire KISHORE-7 Date KISHORE - 7 assessed: 01/12/24 Feeling nervous, anxious, or on edge: 0 = Not at all Not being able to stop or control worryin = Not at all Worrying too much about different things: 0 = Not at all Trouble relaxin = Not at all Being so restless that it is hard to sit still: 0 = Not at all Becoming easily annoyed or irritable: 0 = Not at all Feeling afraid as if something awful might happen: 0 = Not at all Total KISHORE-7 score (0-4 normal; 5-9 mild; 10-14 moderate; 15-21 severe): 0 Source: Developed by Drs. Curtis Montes, Jocelynn Jefferson, Moshe Ochoa and colleagues, with an educational sher from [employer]. Review of Systems Const Denies chills, Denies fatigue, Denies fever(s), Denies headache(s) and Denies weakness ENT Denies dizziness and Denies headache(s) Card Denies dyspnea Resp Denies cough, Denies dyspnea, Denies wheezing and Denies other (shortness of br eath) Musc Denies numbness and Denies tingling Neuro Denies dizziness, Denies headache(s), Denies numbness, Denies tingling and Denies weakness Psych Denies anxiety and Denies depression Endo Denies fatigue Aller/Immun Denies wheezing Physical exam (Primary Care) Vital Signs: Last Vital Signs Temp 98.0 F 03/26/25 11:36 Pulse 65 03/26/25 11:36 Resp 16 03/26/25 11:36 BP 140/80 H 03/26/25 11:42 Pulse Ox 96 03/26/25 11:36 Oxygen Delivery Method Room Air 03/26/25 11:36 BMI result Body Mass Index 46.7 Tobacco/Smoking Status: Tobacco use Status Tobacco use date assessed 02/21/24 03/26/25 11:40 Patient Tobacco Use Status Never used Tobacco 03/26/25 11:40 e-Cigarette/Vaping Use Never Used 03/26/25 11:40 PHQ-9: PHQ-9 Score PHQ-9: Total score 6 03/26/25 11:42 Depression Screening Interpretation: Positive Depression Screening Follow-up: In treatment Thrive Assessment: Date of Thrive Assessment Date Thrive assessed 09/25/24 03/26/25 11:40 Currently or been in a relationship where the following occur: I choose not to answer Const General: well developed; No acute distress Nutritional Appearance: well nourished and obese morbidly obese Orientation/consciousness: patient oriented x3 HENMT Head: Yes normocephalic and Yes atraumatic Eyes General: appearance normal, both eyes and all related structures Pupils: Equal, round and reactive pupils present EOM: EOMs intact bilaterally Resp Effort & Inspection: normal respiratory effort Auscultation: clear to auscultation bilaterally Cardio Rate: regular rate Rhythm: regular rhythm Heart sounds: S1 normal heart sound present, S2 normal heart sound present, no gallops, no murmurs and no rubs Neuro General: patient oriented x3 and gait normal Cranial nerves: Yes Equal, round and reactive pupils present Psych Affect: normal affect Coding Level of Care Code Est Pt Level 4 (93062) Diagnoses Essential hypertension I10 Diabetes E11.9 Low testosterone R79.89 Mild anemia D64.9 Enlarged prostate N40.0 Stasis dermatitis of both legs I87.2 Assessment & Plan Assessment & Plan (1) Essential hypertension: Code(s): I10 - Essential (primary) hypertension Category: Medical Plan: Blood?pressure?mildly?elevated?but?he?says?that?he?has?not?had?medication?on?[address]?today?for?control. Blood?pressures?are?better?controlled?at?home Continue?current?medication (2) Diabetes: Code(s): E11.9 - Type 2 diabetes mellitus without complications Category: Medical Plan: A1c?6.3%.??Good?control.??Goal?is?less?than?7%?and?encouraged?A1c?lower?than 6.5%?- ideal Diet-controlled?diabetes. Continue?working?at?a?diet?low?in?sugars?and?starches (3) Low testosterone: Code(s): R79.89 - Other specified abnormal findings of blood chemistry Category: Medical Plan: Followed?by? He?has?referred?him?for?a?2nd?opinion?as?the?patient?also?has?history?of?CHF?and ?DVTs Follow-up?with?Endocrine?as?recommended (4) Mild anemia: Code(s): D64.9 - Anemia, unspecified Category: Medical Plan: He?is?on?iron?supplementation?and?anemia?is?improving Iron?levels?have?increased?and?reticulocyte?count?is?appropriately?elevated (5) Enlarged prostate: Code(s): N40.0 - Benign prostatic hyperplasia without lower urinary tract symptoms Category: Medical Plan: PSA?elevated.??Still?followed?by?Urology Follow-up?as?recommended (6) Stasis dermatitis of both legs: Code(s): I87.2 - Venous insufficiency (chronic) (peripheral) Category: Medical Plan: Ongoing,?severe?venous?stasis?dermatitis Has?seen?vascular?surgeon?and?the?PA?for?[facility]?[place]?dermatology Notes?that?clobetasol?did?help?somewhat?but?he?did?not?have?enough?of?it Will?try?giving?him?a?lotion?formulation Follow-up?with?dermatology?and?vascular Medications: New clobetasol 0.05% 1 appl topical BID 2 weeks 118 mL 2RF Discontinued semaglutide (Ozempic) for 4 weeks Discontinued Reason: Doctor's Order 0.25 mg (0.368 mL) subcut QWEEK 28 days 1.472 mL 3RF E11.9 - Type 2 diabetes mellitus without complications, E66.01 - Morbid (severe) obesity due to excess calories
[2025-03-26 11:36] VITALS: BP 160/94; PULSE 65; RESP 16; TEMP 36.7; O2SAT 96; BMI 46.7
[2025-03-26 11:39] VITALS: BP 150/86
[2025-03-26 11:42] VITALS: BP 140/80
--- OUTSIDE RECORDS SUMMARY | 2025-03-26 12:02 | XMS_ITS | Clinical Summary ---
Author Organization [facility] Address [address] [place] [address] Care Team Providers Care Client Support Consultant Name Role Phone Unavailable Primary Care Provider [...]
== END 2025-03-26 12:08 | disposition home or self-care (01) ==
LOC: HO.HMCFM 11:19
PROVIDERS: PCP Family Medicine; Visit Provider Family Medicine
DX: I10 Essential (primary) hypertension (principal); E11.9 Type 2 diabetes mellitus without complications; R79.89 Other specified abnormal findings of blood chemistry; D64.9 Anemia, unspecified; N40.0 Benign prostatic hyperplasia without lower urinary tract symptoms; I87.2 Venous insufficiency (chronic) (peripheral)

== ENCOUNTER → 2025-03-26 11:18 | Outpatient (BNVA) | payer BC, SELFPAY | PROVIDERS: PCP Family Medicine; Visit Provider Family Medicine | DX: I10 Essential (primary) hypertension (principal); E11.9 Type 2 diabetes mellitus without complications; R79.89 Other specified abnormal findings of blood chemistry; D64.9 Anemia, unspecified; N40.0 Benign prostatic hyperplasia without lower urinary tract symptoms; I87.2 Venous insufficiency (chronic) (peripheral) | CPT/HCPCS: 83036 ==

== ENCOUNTER 2025-04-03 11:31 | Outpatient (AMB) | payer BC, SELFPAY ==
--- NOTE | 2025-04-03 11:37 | A.OFFVIS_ITS ---
Intake Visit Reasons: 6m/PSA/PVR(set) Intake Note: Patient presents today for follow up on: Enlarged Prostate, Elevated PSA, and PSA lab results PSA: 3.71 Urology Medications: none Blood Thinner: aspirin Press Catcher Required: No Accompanied by: Self / Same As Patient Allergies amlodipine [AMLODIPINE] Allergy (Intermediate, Verified 04/03/25 21:54) MUSCLE WEAKNESS, muscle aches, muscle aches doxazosin Allergy (Mild, Verified 04/03/25 21:54) muscle and joint pain hydrochlorothiazide [From Dutoprol] Allergy (Mild, Verified 04/03/25 21:54) joint and muscle pain lisinopril [LISINOPRIL] Allergy (Mild, Verified 04/03/25 21:54) COUGH metoprolol [From Dutoprol] Allergy (Mild, Verified 04/03/25 21:54) joint and muscle pain valsartan Allergy (Verified 04/03/25 21:54) Muscle cramps atenolol Adverse Reaction (Mild, Verified 04/03/25 21:54) muscle and joint pain chlorthalidone Adverse Reaction (Mild, Verified 04/03/25 21:54) muscle pain losartan Adverse Reaction (Mild, Verified 04/03/25 21:54) muscle pain all over body olmesartan [From Benicar] Adverse Reaction (Mild, Verified 04/03/25 21:54) joint and muscle pain candesartan and celexetil Adverse Reaction (Mild, Uncoded 04/03/25 21:54) muscle pain over all of body Medication List - Last Reconciled 04/03/25 by BLANCHE Flores aspirin 81 mg PO DAILY bismuth tribrom-petrolatum,wh 5 X 9 (Xeroform Petrolatum Dressing) As directed blood pressure monitor Automatic, Digital. Dx: I10. Daily As directed, 999 days/lifetime. XL Cuff clobetasol 0.05% 1 appl topical BID 2 weeks comp.stocking,thigh,long,x-lrg 30-40?mmHg. Use?Daily?As directed, 90 days furosemide 40 mg PO DAILY 30 days hydrochlorothiazide 25 mg PO DAILY 90 days HPI Comments Details: Titus is a 64-year-old male patient of Dr. Turner. He has a past medical history lymphedema, constipation, umbilical hernia, varicose veins of left lower extremity with inflammation status post radiofrequency ablation 03/31, peripheral artery disease, hypertension, obesity, and chronic venous stasis. He presents to the office today for follow-up of his elevated PSA. Recent PSA results were reviewed with the patient today as noted and trended below PSAs: 01/29 3.3, 05/31 4.8, 10/01 3.1, 04/01 3.7 We did discussed slight increase in PSA as well as variability in PSAs over the last year. In review of patient's chart it appears patient with low testosterone. We discussed further treatment options and risks and benefits of these treatment options however patient will be going for 2nd opinion in [place] in June for further treatment options of hypogonadism as patient had previously followed up with endocrinology here at [facility] in recommendations were made for a 2nd opinion. Previous workup has included a retroperitoneal ultrasound 08/31 noting bilateral kidneys are normal in size, contour, and echogenicity. Bilateral Bosniak class 1 cysts noted that require no additional follow-up per radiology report. No renal calculi or hydronephrosis noted bilaterally. The bladder is well distended and normal. Pre void bladder volume is approximately 185 mL. Postvoid bladder volume is tylor roximately 75 mL. The prostate gland is enlarged with a volume of 50 mL and median lobe protrudes into the bladder. We discussed continuation of surveillance monitoring of PSA. He otherwise denies any bothersome urinary issues. WAYNE 08/01 noted smooth, no masses or nodules palpated. He denies any family history of prostate cancer. He otherwise offers no other issues or conc erns at this time. [facility] Medical History Enlarged prostate Lymphedema Umbilical hernia Varicose veins of left lower extremity with inflammation PAD (peripheral artery disease) Essential hypertension Obesity Chronic venous stasis Hypertension Surgical History History of nasal surgery Hx of tonsillectomy Family History Mother High blood pressure Diabetes Father Diabetes High blood pressure Paternal Grandmother Thyroid disorder Maternal Grandfather Diabetes Paternal Grandfather Cancer Family/Other High blood pressure Diabetes Social History Household Members: Spouse Housing: Apartment Do you presently have visiting nurse or other home services: No Patient Tobacco Use Status: Never used Tobacco e-Cigarette/Vaping Use: Never Used service: No Current occupational status: employed 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 Cognitive needs: No Hearing needs: No Vision needs: No Review of Systems Const All systems reviewed & are unremarkable except as noted in HPI and below Eyes Reports no additional complaints ENT Reports no additional complaints Card Reports as per HPI Resp Reports no additional complaints GI Reports as per HPI Physical Exam Const General: cooperative, healthy appearing, comfortable, no acute distress, well developed, alert and awake Nutritional Appearance: obese Orientation/consciousness: patient oriented x3 Limitations: no limitations HEENT Head: Yes normal to inspection, Yes normocephalic and Yes atraumatic Ears: hearing grossly normal bilaterally Eyes General: appearance normal, both eyes and all related structures Neck Neck: Yes normal visual inspection and Yes trachea midline Chest Chest palpation & inspection: normal inspection of the chest Resp Effort & Inspection: normal respiratory effort and able to speak in complete sentences Cardio Rate: regular rate GI Inspection: Yes normal to inspection General: Yes no CVA tenderness Back/Spine/Pelvis Back: no CVA tenderness Skin Other: As per HPI Neuro General: patient oriented x3 Extrem Other: Bilateral lower leg edema left greater than right. Psych Appearance: grossly normal and well kempt Mental Status: mental status grossly normal Speech and movement: Normal speech and movement present and Clear speech present Affect: normal affect Attitude: cooperative Thought process: Normal thought process present Thought content: Normal thought content present Insight: Fair insight present (Psych) Judgement: Fair judgement present (Psych) Office Procedures Post Void Residual Post Residual Void Post Void Residual (PVR): 40 [id number]-[id number] Void Residual by ultrasound Results AMB Urinalysis, Automated UA Leukoctes 0 Michael/uL Last Edit by Demarcus Davis on 04/03/25 13:16 UA Nitrite Last Edit by Demarcus Davis on 04/03/25 13:16 UA Urobilinogen 0.2 mg/dL Last Edit by Demarcus Davis on 04/03/25 13:16 UA Protein 0 mg/dL Last Edit by Demarcus Davis on 04/03/25 13:16 UA pH 6.0 Last Edit by Demarcus Davis on 04/03/25 13:16 UA Blood 25 Lan/uL Last Edit by Demarcus Davis on 04/03/25 13:16 UA Specific [place] 1.015 Last Edit by Demarcus Davis on 04/03/25 13:16 UA Ketone Last Edit by Demarcus Davis on 04/03/25 13:16 UA Bilirubin 0 mg/dL Last Edit by Demarcus Davis on 04/03/25 13:16 UA Glucose 0 mg/dL Last Edit by Demarcus Davis on 04/03/25 13:16 Results Reviewed Results Reviewed: Laboratory Last Values Urine pH (Auto) 6.0 04/03/25 11:43 Specific [place] (Auto) 1.015 04/03/25 11:43 Urine Protein (Auto) 0 mg/dL 04/03/25 11:43 Glucose (UA)(Auto) 0 mg/dL 04/03/25 11:43 Urine Blood (Auto) 25 Lan/uL 04/03/25 11:43 Urine Bilirubin (Auto) 0 mg/dL 04/03/25 11:43 Urine Urobilinogen (Auto) 0.2 mg/dL 04/03/25 11:43 Leukocyte Esterase (Auto) 0 Michael/uL 04/03/25 11:43 Assessment & Plan Assessment & Plan (1) Elevated PSA: Code(s): R97.20 - Elevated prostate specific antigen [PSA] Category: Medical (2) Enlarged prostate: Code(s): N40.0 - Benign prostatic hyperplasia without lower urinary tract symptoms Category: Medical Plan In office urinalysis results reviewed with the patient today; as noted above. Recent PSA results reviewed with the patient today; as noted above. We discussed slight rise in PSA as well as variability in PSA over the last year; we discussed continuation of surveillance monitoring at this time. He currently denies any bothersome urinary issues. He reports be happy with current voiding parameters. We briefly discussed further treatment options of hypogonadism however patient with upcoming 2nd opinion in [place]. Will obtain PSA in 4-6 months. Follow-up in 4-6 months with PSA to be completed prior; or sooner with any issues, concerns, and or questions. Orders: Orders AMB Urinalysis Automated Today Z13.9 - Encounter for screening, unspecified AMB Post Void Residual by ultrasound Today N40.0 - Benign prostatic hyperplasia without lower urinary tract symptoms Prostate Specific Antigen 4 Months N40.0 - Benign prostatic hyperplasia without lower urinary tract symptoms, R97.20 - Elevated prostate specific antigen [PSA] Patient Instructions: The patient had an opportunity to ask questions regarding the treatment plan. All questions were answered. Physical exam, labs, and imaging were discussed and reviewed in detail. As well as risks, benefits, and discussion of treatment choices. No major barriers to understanding were identified. The patient expressed understanding and agreement with the above treatment plan. The patient was made aware they should contact our office by phone for worsening of their current condition, the appearance of new symptoms, or with any questions or concerns. Compliance is encouraged with any medications and follow up testing that is ordered. It is a privilege to be allowed the opportunity to participate in? your urological care.? Again, if you have any questions or concerns If you have any questions or concerns please do not hesitate to contact me. The office is [phone]. This note is constructed using voice recognition software. While every effort has been made to ensure accuracy urgent care errors may have been included. Yours sincerely, BLANCHE Flores Coding Level of Care Code Est Pt Level 3 (44640) Complex EM visit Add On G2211 Diagnoses Elevated PSA R97.20 Enlarged prostate N40.0 CPT Codes Post Residual Void - PVR CPT Code: 44848-Fucz Void Residual by ultrasound ([id number])
--- OUTSIDE RECORDS SUMMARY | 2025-04-03 12:13 | XMS_ITS | Encounter Summary ---
Author Organization [facility] Address [address] [place] [address] Care Team Providers Care Prison Guard Name Role Phone Holly Hood MD Primary Care Provider Unavailable Kristina Chauhan MD Primary Care Provider Unavailable Erick Cox MD Primary Care Provide r Unavailable Martine Johnson MD Primary Care Provider Unavail able Reason for Visit * Reason Onset Date Comments Medication 11/05/2015 Encounter Details Date Type Department Care Team Description 11/05/2015 Telephone Hypertension - [facility] [address] [place] [address] Ava Moralez, Pharm.D Medication Social History Tobacco [...] on filedocumented in this encounter Care Teams Prison Guard Relationship Specialty Start Date End Date Holly Hood MD PCP - General Internal Medicine 09/16/1501/07 [place]-Kristina Garcia MD PCP - General Internal Medicine 02/02/18 Erick Cox MD PCP - General Internal Medicine 04/21/18 1 Martine Johnson MD PCP - General 08/18/19 documented as of this encounter
== END 2025-04-03 12:12 | disposition home or self-care (01) ==
LOC: HO.HUSH 11:32
PROVIDERS: PCP Family Medicine; Visit Provider Nurse Practitioner Family
DX: R97.20 Elevated prostate specific antigen [PSA] (principal); N40.0 Benign prostatic hyperplasia without lower urinary tract symptoms; Z13.9 Encounter for screening, unspecified
CPT/HCPCS: 99213

== ENCOUNTER → 2025-04-03 11:31 | Outpatient (BNVA) | payer BC, SELFPAY | PROVIDERS: PCP Family Medicine; Visit Provider Nurse Practitioner Family | DX: N40.0 Benign prostatic hyperplasia without lower urinary tract symptoms (principal); R97.20 Elevated prostate specific antigen [PSA] | CPT/HCPCS: 51798; 81003 ==

== ENCOUNTER 2025-07-03 15:40 | Outpatient (AMB) | payer BC, SELFPAY ==
--- NOTE | 2025-07-03 15:47 | A.OFFPC_ITS ---
Vital Signs 07/03/25 15:55 Height 5 ft 9 in Weight 318 lb BMI 47.0 BP 138/88 Blood Pressure Location Rt brachial Position Sitting Respiration 16 Pulse 73 Pulse Source Pulse Oximeter Temp 98.5 F Temp Source Temporal Artery Scan Pulse Oximetry (%) 95 Oxygen Delivery Method Room Air Intake Visit Reasons: f/u diabetes, HTN, chronic conditions Intake Note: Titus presents in the office today for a follow up to his diabetes, hypertension, etc. Allergies amlodipine (AMLODIPINE) Allergy (Intermediate, Verified 07/03/25 15:51) MUSCLE WEAKNESS, muscle aches, muscle aches doxazosin Allergy (Mild, Verified 07/03/25 15:51) muscle and joint pain hydrochlorothiazide (From Dutoprol) Allergy (Mild, Verified 07/03/25 15:51) joint and muscle pain lisinopril (LISINOPRIL) Allergy (Mild, Verified 07/03/25 15:51) COUGH metoprolol (From Dutoprol) Allergy (Mild, Verified 07/03/25 15:51) joint and muscle pain valsartan Allergy (Verified 07/03/25 15:51) Muscle cramps atenolol Adverse Reaction (Mild, Verified 07/03/25 15:51) muscle and joint pain chlorthalidone Adverse Reaction (Mild, Verified 07/03/25 15:51) muscle pain losartan Adverse Reaction (Mild, Verified 07/03/25 15:51) muscle pain all over body olmesartan (From Benicar) Adverse Reaction (Mild, Verified 07/03/25 15:51) joint and muscle pain candesartan and celexetil Adverse Reaction (Mild, Uncoded 07/03/25 15:51) muscle pain over all of body Medication List - Last Reconciled 07/03/25 by Jack Turner MD aspirin 81 mg PO DAILY bismuth tribrom-petrolatum,wh 5 X 9 (Xeroform Petrolatum Dressing) As directed blood pressure monitor Automatic, Digital. Dx: I10. Daily As directed, 999 days/lifetime. XL Cuff clobetasol 0.05% 1 appl topical BID 2 weeks comp.stocking,thigh,long,x-lrg 30-40?mmHg. Use?Daily?As directed, 90 days furosemide 40 mg PO DAILY hydrochlorothiazide 25 mg PO BID white petrolatum 41% (Aquaphor Healing) 1 appl topical BID PRN Tobacco use date assessed: 07/03/25 Dental Screening Dental Screen Date: 07/03/25 Did you have a dental visit in the last 12 months?: Yes Did you have a dental problem in the last 6 months where you did not have access to dental care?: No Was dental information given to patient?: Patient has dentist HPI f/u diabetes, HTN, chronic conditions HPI Details 64 y/o male presents to f.u diabetes, HT N. Blood pressure today 138/88, 73p. He is on hydrochlorothiazide 25mg b.i.d. A1c today 6.2%. Diet controlled diabetes. Has not been seeing an habilitation training specialist recently for a diabetic eye exam. [facility] Medical History Enlarged prostate Lymphedema Umbilical hernia Varicose veins of left lower extremity with inflammation PAD (peripheral artery disease) Essential hypertension Obesity Chronic venous stasis Hypertension Surgical History History of nasal surgery Hx of tonsillectomy Family History Mother High blood pressure Diabetes Father Diabetes High blood pressure Paternal Grandmother Thyroid disorder Maternal Grandfather Diabetes Paternal Grandfather Cancer Family/Other High blood pressure Diabetes Social History (Updated 07/03/25 @ 15:54 by Tonia Henry MA) Household Members: Spouse Housing: Apartment Do you presently have visiting nurse or other home services: No Alcohol intake: current Patient Tobacco Use Status: Never used Tobacco e-Cigarette/Vaping Use: Never Used Second Hand Smoke Exposure: No service: No Current occupational status: employed 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 Cognitive needs: No Hearing needs: No Vision needs: No Questionnaire Thrive Questionnaire Date Thrive assessed: 03/26/25 I am a: Patient What is your living situation today?: I have a place to live, but I am worried about losing it in the future Within the past 12 months, did the food you bought not last and you didn't have the money to get more?: I choose not to answer this question Within the past 12 months, did you worry whether your food would run out before you got money to buy more?: I choose not to answer this question Do you have trouble paying for medicines?: Yes Do you have trouble getting transportation to medical appointments?: No Do you have trouble paying your heating and electricity bill?: Yes Do you have trouble taking care of your child, family member or friend?: No Do you have trouble with day-to-day activities such as bathing, preparing meals, shopping, managing finances, etc.?: Yes Are you currently unemployed and looking for a job?: No Are you interested in more education?: No Please select the resources that you would like help with: None Currently or been in a relationship where the following occur: I choose not to answer THRIVE Score: 2 KISHORE-7 AMB Questionnaire KISHORE-7 Date KISHORE - 7 assessed: 01/12/24 Source: Developed by Drs. Curtis Montes, Jocelynn Jefferson, Moshe Ochoa and colleagues, with an educational sher from [employer]. Review of Systems Const Denies chills, Denies fatigue, Denies fever(s), Denies headache(s) and Denies weakness ENT Denies dizziness and Denies headache(s) Card Denies dyspnea Resp Denies cough, Denies dyspnea, Denies wheezing and Denies other (shortness of breath) Musc Denies numbness and Denies tingling Neuro Denies dizziness, Denies headache(s), Denies numbness, Denies tingling and Denies weakness Psych Denies anxiety and Denies depression Endo Denies fatigue Aller/Immun Denies wheezing Physical exam (Primary Care) Vital Signs: Last Vital Signs Temp 98.5 F 07/03/25 15:55 Pulse 73 07/03/25 15:55 Resp 16 07/03/25 15:55 BP 138/88 07/03/25 15:55 Pulse Ox 95 07/03/25 15:55 Oxygen Delivery Method Room Air 07/03/25 15:55 BMI result Body Mass Index 47.0 Tobacco/Smoking Status: Tobacco use Status Tobacco use date assessed 07/03/25 07/03/25 16:00 Patient Tobacco Use Status Never used Tobacco 07/03/25 15:54 e-Cigarette/Vaping Use Never Used 07/03/25 15:54 Thrive Assessment: Date of Thrive Assessment Date Thrive assessed 03/26/25 07/03/25 15:49 Currently or been in a relationship where the following occur: I choose not to answer Const General: well developed; No acute distress Nutritional Appearance: obese morbidly obese Orientation/consciousness: patient oriented x3 HENMT Head: Yes normocephalic and Yes atraumatic Eyes General: appearance normal, both eyes and all related structures Pupils: Equal, round and reactive pupils present EOM: EOMs intact bilaterally Resp Effort & Inspection: normal respiratory effort Neuro General: patient oriented x3 and gait normal Cranial nerves: Yes Equal, round and reactive pupils present Psych Affect: normal affect Results AMB Hemoglobin A1c AMB Hemoglobin A1c 6.2 % Last Edit by Juan Antonio Taylor MA on 07/03/25 16:28 Results Reviewed Results Reviewed: Laboratory Last Values Hgb A1c (Clinic) 6.2 % (4.0-6.0) H 07/03/25 16:02 Coding Level of Care Code Est Pt Level 4 (30599) Diagnoses Diabetes E11.9 Essential hypertension I10 Severe obesity (BMI >= 40) E66.01 Venous stasis dermatitis I87.2 Low testosterone R79.89 Assessment & Plan Assessment & Plan (1) Diabetes: Code(s): E11.9 - Type 2 diabetes mellitus without complications Category: Medical Plan: Diet-controlled diabetes A1c has improved to 6.2%. Continue diet low in sugars and starches Encouraged weight loss and exercise Patient would like to try a GLP 1 medication again. Will send a script for Zepbound (2) Essential hypertension: Code(s): I10 - Essential (primary) hypertension Category: Medical Plan: Blood pressure is controlled. Goal is less than 140/90 No changes to current medication regimen Encouraged lifestyle changes such as low salt/sodium, exercise and weight loss (3) Severe obesity (BMI >= 40): Comment: Lifestyle mild encouraged Code(s): E66.01 - Morbid (severe) obesity due to excess calories Category: Medical Plan: As above Will send script for Zepbound (4) Venous stasis dermatitis: Code(s): I87.2 - Venous insufficiency (chronic) (peripheral) Category: Medical Plan: Fair control with compression stockings and elevation Venous stasis dermatitis controlled with Aquaphora (5) Low testosterone: Code(s): R79.89 - Other specified abnormal findings of blood chemistry Category: Medical Plan: Patient has upcoming appointment with a specialist in [place]. He will have them forward the office visit note Check labs Orders: Orders AMB Hemoglobin A1c Today E11.9 - Type 2 diabetes mellitus without complications Free T4 (Free Thyroxine) Today E03.9 - Hypothyroidism, unspecified, R79.89 - Other specified abnormal findings of blood chemistry Complete Blood Count Auto Diff Today Z00.00 - Encounter for general adult medical examination without abnormal findings Testosterone, Free/Total Today R79.89 - Other specified abnormal findings of blood chemistry Estrogen Today R79.89 - Other specified abnormal findings of blood chemistry Triiodothyronine T3 Total Today E03.9 - Hypothyroidism, unspecified, R79.89 - Other specified abnormal findings of blood chemistry Thyroid Stimulating Hormone Today E03.9 - Hypothyroidism, unspecified, R79.89 - Other specified abnormal findings of blood chemistry Basic Metabolic Panel Today Z00.00 - Encounter for general adult medical examination without abnormal findings Medications: New tirzepatide (weight loss) (Zepbound) for 4 weeks 2.5 mg (0.5 mL) subcut QWEEK 2 mL 3RF 28 days E11.9 - Type 2 diabetes mellitus without complications, E66.01 - Morbid (severe) obesity due to excess calories Changed From hydrochlorothiazide Morning and early afternoon. Avoid too close to bedtime. 25 mg PO BID 90 days 180 tabs 2RF To hydrochlorothiazide Morning and early afternoon. Avoid too close to bedtime. Only takes once a day on the days he is working. 25 mg PO BID From furosemide 40 mg PO DAILY 30 days 30 tabs 2RF To furosemide Patient takes 20mg on the days he is working 40 mg PO DAILY
[2025-07-03 15:55] VITALS: BP 138/88; PULSE 73; RESP 16; TEMP 36.9; O2SAT 95; BMI 47.0
--- OUTSIDE RECORDS SUMMARY | 2025-07-03 16:29 | XMS_ITS | Encounter Summary ---
Author Organization [facility] Address [address] [place] [address] Care Team Providers Care Orthodontic Technician Name Role Phone Martine Johnson MD Primary Care Provider Unavail able Encounter Details Date Type Department Care Team Description 11/10/2019 Adon Report Medical Records [address] [place] [address] Social History Tobacco Use Types Packs/Day Years [...] on filedocumented in this encounter Care Teams Orthodontic Technician Relationship Specialty Start Date End Date Martine Johnson MD PCP - General 08/18/19 documented as of this encounter
--- OUTSIDE RECORDS SUMMARY | 2025-07-03 16:29 | XMS_ITS | Clinical Summary ---
Author Organization [facility] Address [address] [place] [address] Care Team Providers Care Operating Room Assistant Name Role Phone Unavailable Primary Care Provider [...]
--- OUTSIDE RECORDS SUMMARY | 2025-07-03 16:29 | XMS_ITS | Encounter Summary ---
Author Organization [facility] Address [address] [place] [address] Care Team Providers Care Principal Gifts Officer Name Role Phone Martine Johnson MD Primary Care Provider Unavail able Reason for Visit * Reason Onset Date Comments REFERRAL 11/10/2019 Encounter Details Date Type Department Care Team Description 11/10/2019 Telephone Vascular Surgery - [address] [place] [address] Jack Isabel MD REFERRAL Social [...] on filedocumented in this encounter Care Teams Principal Gifts Officer Relationship Specialty Start Date End Date Martine Johnson MD PCP - General 08/18/19 documented as of this encounter
--- OUTSIDE RECORDS SUMMARY | 2025-07-03 16:29 | XMS_ITS | Encounter Summary ---
Author Organization [facility] Address [address] [place] [address] Care Team Providers Care Bin Operator Name Role Phone Holly Hood MD Primary Care Provider Unavailable Kristina Chauhan MD Primary Care Provider Unavailable Erick Cox MD Primary Care Provide r Unavailable Martine Johnson MD Primary Care Provider Unavail able Encounter Details Date Type Department Care Team Description 02/17/2016 Release of Information Medical Records [address] [place] [id number] Abstract, Provider Social History Tobacco Use Types [...] on filedocumented in this encounter Care Teams Bin Operator Relationship Specialty Start Date End Date Holly Hood MD PCP - General Internal Medicine 09/16/15 305/25 Kristina Chauhan MD PCP - General Internal Medicine 02/02/18 Erick Cox MD PCP - General Internal Medicine 04/21/18 1 Martine Johnson MD PCP - General 08/18/19 documented as of this encounter
--- OUTSIDE RECORDS SUMMARY | 2025-07-03 16:29 | XMS_ITS | Clinical Summary ---
Author Organization [facility] Address [address] [place] [address] Care Team Providers Care Instrumentation Designer Name Role Phone Martine Johnson MD Primary Care Provider Unavail able Allergies Active Allergy Reactions Severity Noted Date Comments Amlodipine 05/09/2018 Joint pain Atenolol Swelling/Edema 03/15/2018 Joint pain Chlorthalidone 05/09/2018 Joint pain Diltiazem 05/09/2018 Joint pain Valsartan 09/23/2015 Muscle weakness, lethargic Doxazosin 05/09/2018 Joint pain Lopressor Hct 05/09/2018 Joint pain Lisinopril 05/09/2018 Joint pain Losartan 05/09/2018 Joint pain Medications Medication Sig Dispensed Refills Start Date End Date Status Multiple Vitamin (MULTI-VITAMIN) TABS Take by mouth daily. 0 Active Omeprazole 20 MG TBEC Take by mouth daily. 0 Active Probiotic Product (PROBIOTIC DAILY) CAPS Take by mouth daily. 0 Active Ascorbic Acid (VITAMIN C) 500 MG tablet Take 500 mg by mouth daily. 0 Active Capsicum, Cayenne, 455 MG Cap Take 1 Tab by mouth daily. 0 Active Marty Llamas 550 MG Cap Take 1 Cap by mouth daily. 0 Active Garlic 100 MG Tab Take 1 Tab by mouth daily. 0 Active Julieth, Zingiber officinalis, (JULIETH OR) Take by mouth. 0 Active Cinnamon 500 MG Cap Take 1 Cap by mouth daily. 0 Active Melatonin 1 MG Tab Take 4 Tabs by mouth daily. 0 Active Beta Sitosterol 40 % Powder by Does not apply route. 0 Active Nattokinase 100 MG Cap Take 200 mg by mouth daily. 0 Active FERROUS SULFATE OR Take 325 mg by mouth 2 times daily. 0 Active ALBUTEROL SULFATE 108 (90 BASE) MCG/ACT Aero Soln Inhale 2 Puffs into the lungs every 4 hours as needed. 0 Active doxycycline (VIBRAMYCIN) 100 MG capsule Take 100 mg by mouth 2 times daily. 0 Active clonidine (CATAPRES) 0.1 MG/24HR Place 1 Patch onto the skin once a week. 4 Patch 1 03/15/2018 Active Misc Natural Products (PROSTATE SUPPORT OR) Take 500 mg by mouth daily. 0 Active Flaxseed, Linseed, (FLAX SEED OIL) 1000 MG Cap Take 1,000 mg by mouth daily. 0 Active furosemide (LASIX) 40 MG tablet Take 1 Tab by mouth daily. 30 Tab 3 05/09/2018 Active Active Problems Problem Noted Date Liver cyst 10/28/2015 Microscopic hematuria 10/15/2015 H/O endoscopy 07/24/2013 Overview: Dr. rayne Chacon Elevated prostate specific antigen (PSA) Foot drop, left Overview: Transient, ocassional Impaired fasting glucose HTN (hypertension) Ulcer of esophagus without bleeding Dysphagia Overview: Intermittent, had endoscopy and colonoscopy by Dr Gee Had balloon dilation done in 2014 Anxiety Hiatal hernia Schatzki's ring Resolved Problems Problem Noted Date Resolved Date Headache 09/23/2015 Unspecified constipation 015 Overview: IMO update Family History Medical History Relation Name Comments Diabetes Father Diabetes Maternal Grandfather carotid artery stenosis [Other] Mother stomach cancer [Other] Paternal Grandfather Relation Name Status Comments Father Maternal Grandfather Mother Paternal Grandfather Social History Tobacco Use Types Packs/Day Years Used Date Smoking Tobacco: Never Smokeless Tobacco: Never Alcohol Use Standard Drinks/Week Comments Not Asked 0 (1 standard drink = 0.6 oz pur e alcohol) Sex Assigned at Date Recorded Not on file Last Filed Vital Signs Vital Sign Reading Time Taken Comments Blood Pressure 154/92 05/09/2018 9:17 AM EDT Pulse 80 05/09/2018 9:17 AM EDT Temperature 36.4 C (97.6 F) 12/18/2013 9:18 AM EST Respiratory Rate 18 05/09/2018 9:17 AM EDT Oxygen Saturation - - Inhaled Oxygen Concentration - - Weight 127.9 kg (282 lb) 05/09/2018 9:17 AM EDT Height 176.5 cm (5' 9.5 ) 05/09/2018 9:17 AM EDT Body Mass Index 41.05 05/09/2018 9:17 AM EDT Plan of Treatment Health Maintenance Due Date Last Done Comments Covid-19 Vaccine (#1) 01/05/1960 HEPATITIS C SCREENING 1977 CHOLESTEROL SCREENING 1979 SHINGLES VACCINE (1 of 2) 2009 COLON CANCER SCREENING 2016 1 (External Completion of test per patient (Patient reports normal results)) DTAP/TDAP/TD (2 - Td or Tdap) 05/17/2024 (External Completion of Vaccination per patient) PNEUMOCOCCAL VACCINE (1 - PCV) 2024 BMI CHECK/ADVISE 11/08/2024 04/22/2016, 12/18/2013 INFLUENZA (#1) 2025 09/23/2015 (Refused) Care Teams Instrumentation Designer Relationship Specialty Start Date End Date Martine Johnson MD PCP - General 08/18/19
--- OUTSIDE RECORDS SUMMARY | 2025-07-03 16:29 | XMS_ITS | Clinical Summary ---
Author Organization [facility] Address [address] [place] [id number] Phone Care Team Providers Care Marine Photographer Name Role Phone Jack Turner MD Primary Care Provider Social History Tobacco Use Types Packs/Day Years Used Date Smoking Tobacco: Never Assessed Education Answer Date Recorded Are you interested in more education? Not on ana e 03/23/2025 Are you concerned about learning? Not on file 03/23/2025 No 03/23/2025 No 03/23/2025 Digital Access Answer Date Recorded No 03/23/2025 No 03/23/2025 Reliable internet access at home? Not on file 03/23/2025 Device with a working camera? Not on file Sex and Gender Information Value Date Recorded Sex Assigned at Male 03/13/2025 3:35 PM EDT Legal Sex Male 3:33 PM EDT Gender Identity Male 03/13/2025 3:35 PM EDT Sexual Orientation Straight 03/13/2025 3: 35 PM EDT Plan of Treatment Upcoming Encounters Date Type Department Care Team (Late st Contact Info) Description 07/16/2025 2:00 PM EDT Office Visit [facility] [place] [facility] [address], [address] [place] [address] Carina Bianchi MD, PhD [address] [address] Health Maintenance Due Date Last Done Comments Adult Td,Tdap Booster 1959 LIPID PANEL 1959 DEPRESSION SCREENING 1971 SMOKING Hx and SMOKELESS TOB ACCO SCREENING 1972 HEPATITIS C SCREENING 1977 HIV ONE-TIME SCREENING (18-6 5 YEARS) 1977 COLOGUARD 2004 COLONOSCOPY 2004 COLORECTAL CANCER SCREENING 2004 FIT TEST 2004 FOBT 2004 SIGMOIDOSCOPY 2004 VIRTUAL COLONOSCOPY 2004 PNEUMOCOCCAL VACCINES (50+ y ears) (1 of 1 - PCV) 2009 ZOSTER VACCINES (1 of 2) 2009 COVID-19 VACCINE ( - 2023-2 5 season) 2024 INFLUENZA VACCINE (#1) 2025 RSV VACCINE (1 - 1-dose 75+ series) 2034 HEPATITIS A VACCINES Aged Out No long er eligible based on patient's age to complete this topic HIB VACCINES Aged Out No longer eligi ble based on patient's age to complete this topic MENINGOCOCCAL VACCINES (ACWY) Aged Out No longer eligible based on patient's age to complete this topic MENINGOCOCCAL VACCINES (B) Aged Out N o longer eligible based on patient's age to complete this topic Medical Devices Not on file Insurance [employer] [address] [address] [address] [place] [address] [employer] Care Teams Marine Photographer Relationship Specialty Start Date End Date Jack Turner MD [address] [place] [address] PCP - General Family Medicine 03/13/25 Additional Source Comments The information contained in this document represents components of the legal health record. It is not the complete legal health record.[facility]
--- OUTSIDE RECORDS SUMMARY | 2025-07-03 16:29 | XMS_ITS | Encounter Summary ---
Author Organization [facility] Address [address] [place] [address] Care Team Providers Care Sign Carpenter Name Role Phone Amena Graves DO Primary Care Pro vider Unavailable Community, Pcp Primary Care Provider UnavailHolly Garcia MD Primary Care Provider Unavailable Kristina Chauhan MD Primary Care Provider Unavailable Erick Cox MD Primary Care Provide r Unavailable Martine Johnson MD Primary Care Provider Unavail able Encounter Details Date Type Department Care Team Description 12/20/2013 Release of Information Medical Records [address] [place] [id number] Abstract, Provider Social History Tobacco Use Types [...] on filedocumented in this encounter Care Teams Sign Carpenter Relationship Specialty Start Date End Date Amena [...]
--- OUTSIDE RECORDS SUMMARY | 2025-07-03 16:29 | XMS_ITS | Encounter Summary ---
Author Organization [facility] Address [address] [place] [address] Care Team Providers Care Cardiovascular Invasive Specialist Name Role Phone Holly Hood MD Primary Care Provider Unavailable Kristina Chauhan MD Primary Care Provider Unavailable Erick Cox MD Primary Care Provide r Unavailable Martine Johnson MD Primary Care Provider Unavail able Encounter Details Date Type Department Care Team Description 02/17/2016 Grading Machine Operator Report Medical Records [address] [place] [id number] [address] [place] Social History Tobacco Use Types [...] on filedocumented in this encounter Care Teams Cardiovascular Invasive Specialist Relationship Specialty Start Date End Date Holly Hood MD PCP - General Internal Medicine 09/16/1501/07 Kristina Chauhan MD PCP - General Internal Medicine 02/02/18 Erick Cox MD PCP - General Internal Medicine 04/21/18 1 Martine Johnson MD PCP - General 08/18/19 documented as of this encounter
--- OUTSIDE RECORDS SUMMARY | 2025-07-03 16:29 | XMS_ITS | Encounter Summary ---
Author Organization [facility] Address [address] [place] [address] Care Team Providers Care Press Maintainer Name Role Phone Holly Hood MD Primary Care Provider Unavailable Kristina Chauhan MD Primary Care Provider Unavailable Erick Cox MD Primary Care Provide r Unavailable Martine Johnson MD Primary Care Provider Unavail able Encounter Details Date Type Department Care Team Description 01/28/2017 Release of Information Medical Records [address] [place] [id number] Abstract, Provider Social History Tobacco Use Types [...] on filedocumented in this encounter Care Teams Press Maintainer Relationship Specialty Start Date End Date Holly Hood MD PCP - General Internal Medicine 09/16/15 305/25 Kristina Chauhan MD PCP - General Internal Medicine 02/02/18 Erick Cox MD PCP - General Internal Medicine 04/21/18 1 Martine Johnson MD PCP - General 08/18/19 documented as of this encounter
--- OUTSIDE RECORDS SUMMARY | 2025-07-03 16:29 | XMS_ITS | Encounter Summary ---
Author Organization [facility] Address [address] [place] [address] Care Team Providers Care Chief Credit Officer Name Role Phone Erick Cox MD Primary Care Provide r Unavailable Martine Johnson MD Primary Care Provider Unavail able Encounter Details Date Type Department Care Team Description 05/05/2019 Exhaust And Muffler Repairer Report Medical Records [address] [place] [address] Jerald Gutierrez MD Social History Tobacco Use Types Packs/Day [...] on filedocumented in this encounter Care Teams Chief Credit Officer Relationship Specialty Start Date End Date Erick Cox MD PCP - General Internal Medicine 04/21/18 1 Martine Johnson MD PCP - General 08/18/19 documented as of this encounter
== END 2025-07-03 17:01 | disposition home or self-care (01) ==
LOC: HO.HMCFM 15:41
PROVIDERS: PCP Family Medicine; Visit Provider Family Medicine
DX: E11.9 Type 2 diabetes mellitus without complications (principal); E66.01 Morbid (severe) obesity due to excess calories; Z68.42 Body mass index [BMI] 45.0-49.9, adult; I10 Essential (primary) hypertension; I87.2 Venous insufficiency (chronic) (peripheral); R79.89 Other specified abnormal findings of blood chemistry

== ENCOUNTER → 2025-07-03 15:40 | Outpatient (BNVA) | payer BC, SELFPAY | PROVIDERS: PCP Family Medicine; Visit Provider Family Medicine | DX: E11.9 Type 2 diabetes mellitus without complications (principal); I10 Essential (primary) hypertension; I87.2 Venous insufficiency (chronic) (peripheral); R79.89 Other specified abnormal findings of blood chemistry; E66.01 Morbid (severe) obesity due to excess calories; Z68.42 Body mass index [BMI] 45.0-49.9, adult; Z71.3 Dietary counseling and surveillance | CPT/HCPCS: 83036 ==

== ENCOUNTER 2025-07-10 07:59 | Outpatient (REF) | payer BC, SELFPAY ==
--- OUTSIDE RECORDS SUMMARY | 2025-07-10 08:05 | XMS_ITS | Clinical Summary ---
Author Organization [facility] Address [email or web address] [place] [phone] Phone Care Team Providers Care Paediatric Physiotherapist Name Role Phone Jack Turner MD Primary [...] Description 07/16/2025 2:00 PM EDT Office Visit [facility] [address], [address] [place] [address] Carina Bianchi MD, PhD [address] [address] Health Maintenance Due Date Last Done Comments Adult Td,Tdap Booster 1959 LIPID PANEL 1959 DEPRESSION SCREENING 1971 SMOKING Hx and SMOKELESS TOB ACCO SCREENING 1972 HEPATITIS C SCREENING 1977 COLOGUARD 2004 COLONOSCOPY 2004 COLORECTAL CANCER SCREENING 2004 FIT TEST 2004 FOBT 2004 SIGMOIDOSCOPY 2004 VIRTUAL COLONOSCOPY 2004 PNEUMOCOCCAL VACCINES (50+ y ears) (1 of 1 - PCV) 2009 ZOSTER VACCINES (1 of 2) 2009 COVID-19 VACCINE (1 - 2023-2 5 season) 2024 INFLUENZA VACCINE [...] topic Medical Devices Not on file Insurance [place] [place] [id number] [facility] Care Teams Paediatric Physiotherapist Relationship Specialty Start Date End Date Jack Turner MD [address] [place] [address] PCP - General Family Medicine 03/13/25 Additional Source Comments The information contained in this document represents components of the legal health record. It is not the complete legal health record.[facility]
--- OUTSIDE RECORDS SUMMARY | 2025-07-10 08:05 | XMS_ITS | Clinical Summary ---
Author Organization [facility] Address [address] [place] [address] Care Team Providers Care Welt Sole Layer Name Role Phone Unavailable Primary Care Provider [...]
[2025-07-10 11:07] LABS: MANUAL DIFF FLAG NO
[2025-07-10 11:12] LABS: Hematocrit 38.8 % (42.0-52.0); Hemoglobin 12.7 g/dl (14.0-18.0); Imm Gran Abs Auto 0.02 X10*3/uL (0.00-0.03); Imm Gran Pct Auto 0.3 % (0.0-0.4); Lymphocytes Absolute Auto 1.6 X10*3/uL (1.2-4.9); Mean Corpuscular HGB Conc 32.7 g/dl (31.0-36.0); Mean Corpuscular Hemoglobin 29.2 pg (27.0-33.0); Mean Corpuscular Volume 89.2 fL (80.0-98.0); NRBC Abs Auto 0.000 X10*3/uL (0.0-0.012); NRBC Pct Auto 0.0 /100WBC (0.0-0.2); Platelet Count 251 X10*3/uL (160-400); Red Blood Count 4.35 X10*6/uL (4.60-5.80); White Blood Count 7.0 X10*3/uL (4.8-10.8)
[2025-07-10 12:03] LABS: Prostate Specific Antigen 3.36 ng/mL (<0.05-4.0)
[2025-07-10 12:12] LABS: Free T4 (Free Thyroxine) 0.92 ng/dL (0.71-1.85); Thyroid Stimulating Hormone 2.32 uIU/mL (0.32-4.0)
[2025-07-10 12:32] LABS: Anion Gap 12 (12-20); Blood Urea Nitrogen 23 mg/dL (9-16); Calcium 9.4 mg/dL (8.4-10.2); Carbon Dioxide 28 mmol/L (22-29); Chloride 103 mmol/L (96-108); Estimated Glomerular Filt Rate > 60; Potassium 3.9 mmol/L (3.3-5.1); Sodium 139 mmol/L (135-145)
[2025-07-29 11:09] LABS: Testosterone, Free 28.4 pg/mL (35.0-155.0)
== END 2025-07-10 08:00 | disposition home or self-care (01) ==
LOC: HO.WFDLDS 07:59
PROVIDERS: Nurse Practitioner Family; Visit Provider Family Medicine
DX: Z00.00 Encounter for general adult medical examination without abnormal findings (principal); E03.9 Hypothyroidism, unspecified; R79.89 Other specified abnormal findings of blood chemistry; N40.0 Benign prostatic hyperplasia without lower urinary tract symptoms; R97.20 Elevated prostate specific antigen [PSA]; Z12.5 Encounter for screening for malignant neoplasm of prostate
CPT/HCPCS: 36415; 80048; 82672; 84153; 84402; 84403; 84439; 84443; 84480; 85025